=== PATIENT | female | born 1945 | race Caucasian/White ===

== ENCOUNTER 2019-07-03 11:11 | Outpatient (CLI) | payer MEDICARE, SELFPAY ==
--- NOTE | ~2019-07-03 | US_ITS ---
EXAMINATION: US right upper quadrant DATE: 07/03/2019 12:08 INDICATION: Right upper quadrant pain, history of cholecystectomy TECHNIQUE: Multiple grayscale and Doppler ultrasound images of the abdomen were obtained. COMPARISON: None available FINDINGS: The head and and body of the pancreas are normal. The pancreatic tail is obscured by bowel gas. The liver is normal with normal echogenicity and echotexture. No surface nodularity. Normal hepa topetal flow in the main portal vein. The gallbladder is surgically absent. The normal common bile du ct measures 5 mm. IMPRESSION: 1. No sonographic correlate for the patient's symptoms. Reviewed, dictated and finalized at location A. [facility]
== END 2019-07-03 11:12 | disposition home or self-care (01) ==
LOC: CHSIMG 11:13
PROVIDERS: PCP Internal Medicine; Visit Provider Internal Medicine
DX: R10.11 Right upper quadrant pain (principal)
CPT/HCPCS: 76705

== ENCOUNTER 2019-07-17 10:12 | Outpatient (CLI) | payer MEDICARE, SELFPAY ==
--- NOTE | ~2019-07-17 | XR_ITS ---
EXAMINATION: XR chest 2V DATE: 07/17/2019 10:42 INDICATION: Fever and shortness of breath. Flulike symptoms. TECHNIQUE: Frontal and lateral views of the chest were obtained. COMPARISON: Chest CT 09/05/2018 FINDINGS: There are mild patchy airspace opacities in the mid and lower lung zones. No pleural effusi on or pneumothorax. The heart size is normal. Surgical clips in the right upper quadrant are likely f rom cholecystectomy. IMPRESSION: 1. Mild patchy airspace opacities in the mid and lower lung zones, consistent with atelectasis/scarri ng versus pneumonia. Reviewed, dictated and finalized at location A. [facility] IMPRESSION: 1. Mild patchy airspace opacities in the mid and lower lung zones, consistent w ith atelectasis/scarring versus pneumonia.
[2019-07-17 10:29] LABS: Hemoglobin 13.1 g/dL (11.7-13.8); Mean Corpuscular HGB Conc 33.6 g/dL (32.0-36.0); Mean Corpuscular Volume 86.3 fL (78.0-102.0); Mean Platelet Volume 8.9 fl (9.2-11.8); Platelet Count Result 314 K/mm3 (150-420); Red Blood Count 4.52 M/mm3 (4.20-5.40); Red Cell Distribution Width 13.3 % (11.6-14.4)
[2019-07-17 10:35] LABS: Add Urine Microscopic? YES; Appearance Urine Sl Cloudy (Clear); Bilirubin Urine 3+ (Negative); Blood Urine 2+ (Negative); Color Urine Amber (Yellow); Glucose Urine UA Negative (Negative); Ketones Urine 2+ (Negative); Leukocyte Esterase Ur Negative (Negative); Nitrate Urine Positive (Negative); Protein Urine 3+ (Negative); Specific Grav Ur >= 1.030 (1.010-1.020); Urobilinogen Urine >=8.0 mg/dL (0.2-1.0)
[2019-07-17 10:47] LABS: Alanine Aminotransferase 27 U/L (14-59); Albumin Level 3.2 g/dL (3.4-5.0); Alkaline Phosphatase 123 U/L (46-116); Amylase 25 U/L (25-115); Aspartate Amino Transferase 33 U/L (15-37); Bilirubin,Total 1.3 mg/dL (0.00-1.00); Blood Urea Nitrogen 13 mg/dL (7-18); Carbon Dioxide 25 mmol/L (21-32); Chloride 96 mmol/L (98-108); Estimated Glomerular Filt Rate 52; Glucose 146 mg/dL (70-99); Lipase 84 U/L (73-393); Osmolality Calculated 283 mOsm/kg (285-295); Sodium 135 mmol/L (136-145); Total Protein 8.7 g/dL (6.4-8.2)
[2019-07-17 10:50] LABS: Influenza Control Valid (Valid)
[2019-07-17 11:02] LABS: White Blood Count 20.8 K/mm3 (4.8-10.8)
[2019-07-17 11:03] LABS: Band Neutrophils Percent 0 % (0-6); Lymphocytes Absolute Manual 1.24 K/mm3 (1.1-4.5); Lymphocytes Percent Manual 6 % (18-44); Neutrophils Absolute Manual 17.88 K/mm3 (1.7-7.2); Neutrophils Percent Manual 86 % (46-73); Total Cells Counted 100
[2019-07-17 11:04] LABS: Basophils Percent Manual 0 % (0-1); Eosinophils Percent Manual 0 % (1-6); Monocytes Absolute Manual 1.66 K/mm3 (0.1-0.90); Monocytes Percent Manual 8 % (3-9); Platelet Estimate Adequate (Adequate); Squamous Epithelial Cell Urine Few /hpf (Few); WBC Urine None seen /hpf (0-3)
[2019-07-17 11:05] LABS: Bacteria Urine 1+ /hpf; Mucus Urine Few /lpf
== END 2019-07-17 10:13 | disposition home or self-care (01) ==
LOC: CHSLAB 10:16
PROVIDERS: PCP Internal Medicine; Visit Provider Nurse Practitioner Family
DX: J06.9 Acute upper respiratory infection, unspecified (principal); R11.2 Nausea with vomiting, unspecified; R32 Unspecified urinary incontinence
CPT/HCPCS: 71046; 80053; 81001; 82150; 83690; 85025; 87086; 87088; 87804

== ENCOUNTER 2019-07-27 08:02 | Outpatient (CLI) | payer MEDICARE, SELFPAY ==
--- NOTE | ~2019-07-27 | XR_ITS ---
EXAMINATION: XR chest 2V EXAM DATE: 07/27/2019 08:52 INDICATION: Cough, congestion. TECHNIQUE: Frontal and lateral projections of the chest obtained and reviewed. There is no prior phani dy for comparison. FINDINGS: Scattered predominantly linear regions most consistent with atelectasis and/or scarring ag ain noted without confluent consolidation. Accounting for differences in technique, there is no signi ficant interval change. Cardiomediastinal silhouette is normal. There is no pneumothorax suspected. T here are no pleural effusions. There are bony degenerative changes. There are cholecystectomy clips. IMPRESSION: 1. Scattered predominantly linear opacities most likely scarring/atelectasis unchanged. Reviewed, dictated and finalized at location B. T PARKER IMPRESSION: 1. Scattered predominantly linear opacities most likely scarring/atelectasis u nchanged.
[2019-07-27 08:13] LABS: Basophils Absolute Auto 0.09 K/mm3 (0.00-0.10); Basophils Percent Auto 0.5 % (0.0-1.0); Eosinophils Absolute Auto 0.19 K/mm3 (0.02-0.50); Eosinophils Percent Auto 1.1 % (1.0-6.0); Hematocrit 40.5 % (35.0-42.0); Immature Granulocyte Absolute 0.33 K/mm3 (0.00-0.00); Immature Granulocyte Percent A 1.9 % (0.0-0.0); Lymphocytes Absolute Auto 3.69 K/mm3 (1.10-4.50); Lymphocytes Percent Auto 21.7 % (18.0-42.0); Mean Corpuscular HGB Conc 32.1 g/dL (32.0-36.0); Mean Corpuscular Hemoglobin 28.7 pg (27.0-31.0); Mean Corpuscular Volume 89.4 fL (78.0-102.0); Mean Platelet Volume 8.1 fl (9.2-11.8); Monocytes Absolute Auto 0.89 K/mm3 (0.10-0.90); Monocytes Percent Auto 5.2 % (2.0-11.0); Neutrophils Absolute Auto 11.8 K/mm3 (1.7-7.2); Neutrophils Percent Auto 69.6 % (50.0-70.0); Platelet Count Result 493 K/mm3 (150-420); Red Blood Count 4.53 M/mm3 (4.20-5.40); Red Cell Distribution Width 13.7 % (11.6-14.4)
[2019-07-27 09:16] LABS: Anion Gap 13.4 mmol/L (7-16); Blood Urea Nitrogen 16 mg/dL (7-18); Calcium 9.6 mg/dL (8.5-10.1); Carbon Dioxide 31 mmol/L (21-32); Chloride 101 mmol/L (98-108); Estimated Glomerular Filt Rate > 60; Glucose 91 mg/dL (70-99); Osmolality Calculated 291 mOsm/kg (285-295); Potassium 5.4 mmol/L (3.5-5.1); Sodium 140 mmol/L (136-145)
== END 2019-07-27 08:03 | disposition home or self-care (01) ==
LOC: CHSLAB 08:05
PROVIDERS: PCP Internal Medicine; Visit Provider Internal Medicine
DX: J18.9 Pneumonia, unspecified organism (principal)
CPT/HCPCS: 36415; 71046; 80048; 85025

== ENCOUNTER 2019-08-03 07:57 | Outpatient (CLI) | payer MEDICARE, SELFPAY ==
[2019-08-03 08:05] LABS: Basophils Absolute Auto 0.08 K/mm3 (0.00-0.10); Eosinophils Absolute Auto 0.14 K/mm3 (0.02-0.50); Eosinophils Percent Auto 1.8 % (1.0-6.0); Hematocrit 39.6 % (35.0-42.0); Hemoglobin 12.8 g/dL (11.7-13.8); Immature Granulocyte Absolute 0.02 K/mm3 (0.00-0.00); Immature Granulocyte Percent A 0.3 % (0.0-0.0); Lymphocytes Absolute Auto 2.72 K/mm3 (1.10-4.50); Mean Corpuscular HGB Conc 32.3 g/dL (32.0-36.0); Mean Corpuscular Hemoglobin 28.6 pg (27.0-31.0); Mean Corpuscular Volume 88.4 fL (78.0-102.0); Mean Platelet Volume 8.5 fl (9.2-11.8); Monocytes Absolute Auto 0.66 K/mm3 (0.10-0.90); Monocytes Percent Auto 8.3 % (2.0-11.0); Neutrophils Absolute Auto 4.4 K/mm3 (1.7-7.2); Neutrophils Percent Auto 54.6 % (50.0-70.0); Platelet Count Result 435 K/mm3 (150-420); Red Blood Count 4.48 M/mm3 (4.20-5.40); Red Cell Distribution Width 14.1 % (11.6-14.4)
== END 2019-08-03 07:58 | disposition home or self-care (01) ==
LOC: CHSLAB 07:59
PROVIDERS: PCP Internal Medicine; Visit Provider Internal Medicine
DX: J18.9 Pneumonia, unspecified organism (principal)
CPT/HCPCS: 36415; 85025

== ENCOUNTER 2019-08-11 10:30 | Outpatient (CLI) | payer MEDICARE, SELFPAY ==
--- NOTE | ~2019-08-11 | CT_ITS ---
EXAMINATION: CT abdomen pelvis w con DATE: 08/11/2019 11:15 INDICATION: Acute left lower quadrant abdominal pain. History of colon cancer. TECHNIQUE: Computed tomography (CT) of the abdomen and pelvis was performed with 100 cc Omnipaque 350 intravenous contrast. Automated exposure control and iterative reconstruction technique were employe d. Exam dose: 392.48 mGy-cm total exam DLP. COMPARISON: 07/03/2019 right upper quadrant abdominal ultrasound examination for right upper quadrant abdominal pain; no significant abnormality reported FINDINGS: There are scattered mild patchy areas of focal infiltrate and/or atelectasis in the lower l matthew zones bilaterally. Normal heart size. No pericardial or pleural effusion. There are multiple left and right hepatic cysts and/or cavernous hemangiomas, likely benign, the larg est situated in the lower lateral segment left hepatic lobe, measuring up to 1.9 cm dimension. No binh picious solid lesion of the liver is evident. Status post cholecystectomy. No bile duct or pancreatic duct dilatation. No pancreatic mass lesion, c alcification. Normal splenic size. Normal morphology of the adrenal glands. Approximately 2 small renal cysts are noted bilaterally, the largest 1.1 cm, at the upper pole of the right kidney. No urinary tract calculus or hydroureteronephrosis is evident. There is atherosclerotic calcification of the abdominal aorta; no abdominal aortic aneurysm. No signi ficantly enlarged intraperitoneal or retroperitoneal or pelvic lymph nodes are evident. Occasional bi lateral inguinal lymph nodes are noted, the largest on the left, measuring 9 x 13 mm. Small sliding hiatal hernia. No CT evidence of appendicitis. No bowel obstruction or intraperitoneal free air. There is a suture line in the rectosigmoid area, with some circumferential soft tissue prom inence in this area. Local tumor recurrence cannot be excluded or confirmed based on this examination ; further evaluation by colonoscopy or barium enema imaging should be considered. There is prominent degenerative change at the lower thoracic and upper to mid lumbar spine, including prominent degenerative disease particularly at L1-2 and L2-3 with associated mild retrolisthesis at each of these levels.. IMPRESSION: Rectosigmoid suture line related to history of prior colon cancer. There appears to be s ome circumferential soft tissue thickening at this area. Recommend further evaluation by colonoscopy or barium enema examination Small sliding hiatal hernia Multiple left and right hepatic cysts and/or cavernous hemangiomas, likely benign Bilateral renal cysts Reviewed, dictated and finalized at Location A. Reviewed, dictated and finalized at location A. IMPRESSION: Rectosigmoid suture line related to history of prior colon cancer. There appears to be some circumferential soft tissue thickening at this area. Recommend further evaluation by colonoscopy or barium enema examination Small sliding hiatal hernia Multiple left and right hepatic cysts and/or cavernous hemangiomas, likely vidya gn Bilateral renal cysts
[2019-08-11 10:40] LABS: Basophils Absolute Auto 0.05 K/mm3 (0.00-0.10); Basophils Percent Auto 0.7 % (0.0-1.0); Eosinophils Absolute Auto 0.14 K/mm3 (0.02-0.50); Eosinophils Percent Auto 1.8 % (1.0-6.0); Hematocrit 40.3 % (35.0-42.0); Hemoglobin 13.4 g/dL (11.7-13.8); Immature Granulocyte Absolute 0.04 K/mm3 (0.00-0.00); Immature Granulocyte Percent A 0.5 % (0.0-0.0); Lymphocytes Absolute Auto 2.35 K/mm3 (1.10-4.50); Lymphocytes Percent Auto 30.8 % (18.0-42.0); Mean Corpuscular HGB Conc 33.3 g/dL (32.0-36.0); Mean Corpuscular Hemoglobin 29.6 pg (27.0-31.0); Mean Platelet Volume 8.8 fl (9.2-11.8); Monocytes Absolute Auto 0.56 K/mm3 (0.10-0.90); Monocytes Percent Auto 7.3 % (2.0-11.0); Neutrophils Absolute Auto 4.5 K/mm3 (1.7-7.2); Neutrophils Percent Auto 58.9 % (50.0-70.0); Platelet Count Result 266 K/mm3 (150-420); Red Blood Count 4.53 M/mm3 (4.20-5.40); Red Cell Distribution Width 14.9 % (11.6-14.4); White Blood Count 7.6 K/mm3 (4.8-10.8)
[2019-08-11 10:44] LABS: Add Urine Microscopic? NO; Appearance Urine Clear (Clear); Bilirubin Urine Negative (Negative); Blood Urine Negative (Negative); Color Urine Yellow (Yellow); Glucose Urine UA Negative (Negative); Ketones Urine Negative (Negative); Leukocyte Esterase Ur Negative (Negative); Nitrate Urine Negative (Negative); Protein Urine Negative (Negative); Specific Grav Ur 1.025 (1.010-1.020); Urobilinogen Urine 0.2 mg/dL (0.2-1.0); pH Urine 5.5 (5.0-8.0)
[2019-08-11 10:50] LABS: Estimated Glomerular Filt Rate 59
[2019-08-11 10:54] LABS: Alanine Aminotransferase 20 U/L (14-59); Albumin Level 3.8 g/dL (3.4-5.0); Alkaline Phosphatase 75 U/L (46-116); Anion Gap 14.5 mmol/L (7-16); Aspartate Amino Transferase 17 U/L (15-37); Bilirubin,Total 0.6 mg/dL (0.00-1.00); Blood Urea Nitrogen 17 mg/dL (7-18); Calcium 9.7 mg/dL (8.5-10.1); Carbon Dioxide 27 mmol/L (21-32); Chloride 103 mmol/L (98-108); Glucose 95 mg/dL (70-99); Osmolality Calculated 291 mOsm/kg (285-295); Potassium 4.5 mmol/L (3.5-5.1); Sodium 140 mmol/L (136-145); Total Protein 7.4 g/dL (6.4-8.2)
== END 2019-08-11 10:31 | disposition home or self-care (01) ==
LOC: CHSLAB 10:33
PROVIDERS: PCP Internal Medicine; Visit Provider Internal Medicine
DX: R10.32 Left lower quadrant pain (principal); Z85.038 Personal history of other malignant neoplasm of large intestine
CPT/HCPCS: 36415; 74177; 80053; 81003; 85025; Q9965

== ENCOUNTER 2019-09-03 11:36 | Outpatient (CLI) | payer MEDICARE, SELFPAY ==
[2019-09-03 11:48] LABS: Add Urine Microscopic? YES; Appearance Urine Clear (Clear); Bilirubin Urine Negative (Negative); Blood Urine Negative (Negative); Color Urine Yellow (Yellow); Glucose Urine UA Negative (Negative); Ketones Urine Trace (Negative); Leukocyte Esterase Ur Negative (Negative); Nitrate Urine Negative (Negative); Protein Urine Negative (Negative); Specific Grav Ur >= 1.030 (1.010-1.020); Urobilinogen Urine 0.2 mg/dL (0.2-1.0); pH Urine 5.5 (5.0-8.0)
[2019-09-03 12:52] LABS: Bacteria Urine 2+ /hpf; Mucus Urine Few /lpf; RBC Urine 0-2 /hpf (0-2); Squamous Epithelial Cell Urine Few /hpf (Few); WBC Urine 0-3 /hpf (0-3)
[2019-09-03 13:12] LABS: Alanine Aminotransferase 25 U/L (14-59); Albumin Level 3.7 g/dL (3.4-5.0); Alkaline Phosphatase 81 U/L (46-116); Anion Gap 14.3 mmol/L (7-16); Aspartate Amino Transferase 20 U/L (15-37); Bilirubin,Total 0.3 mg/dL (0.00-1.00); Blood Urea Nitrogen 11 mg/dL (7-18); Calcium 8.5 mg/dL (8.5-10.1); Carbon Dioxide 27 mmol/L (21-32); Chloride 104 mmol/L (98-108); Cholesterol 237 mg/dL (0-200); Creatine Kinase 39 U/L (26-192); Estimated Glomerular Filt Rate > 60; Glucose 99 mg/dL (70-99); HDL Direct 45 mg/dL (40-60); LDL Cholesterol Calculated 145 mg/dL (<130); Osmolality Calculated 291 mOsm/kg (285-295); Potassium 4.3 mmol/L (3.5-5.1); Sodium 141 mmol/L (136-145); Triglycerides 233 mg/dL (0-150)
[2019-09-06 18:31] LABS: Vitamin D 25 Hydroxy 23 ng/mL (30-100)
== END 2019-09-03 11:37 | disposition home or self-care (01) ==
LOC: CHSLAB 11:39
PROVIDERS: PCP Internal Medicine; Visit Provider Internal Medicine
DX: E78.2 Mixed hyperlipidemia (principal); M81.0 Age-related osteoporosis without current pathological fracture; I10 Essential (primary) hypertension
CPT/HCPCS: 36415; 80053; 80061; 81001; 82306; 82550

== ENCOUNTER 2019-09-21 12:22 | Outpatient (CLI) | payer MEDICARE, SELFPAY ==
--- NOTE | ~2019-09-21 | CT_ITS ---
EXAMINATION: CT abdomen pelvis w con DATE: 09/21/2019 13:08 INDICATION: Left lower quadrant abdominal pain. Colon cancer. TECHNIQUE: Computed tomography (CT) of the abdomen and pelvis was performed with 100 mL Omnipaque-350 intravenous contrast. Automated exposure control and iterative reconstruction technique were employe d. The dose-length product was 424.82 mGy-cm. COMPARISON: 08/11/2019 FINDINGS: Full improvement in peripheral reticulonodular opacities in the lingula and right lower lobe essentia lly resolved in the left lower lobe which is most likely infectious/inflammatory in etiology. No new lung disease or pleural effusion. Heart size is normal. No pericardial effusion. Small sliding-type h iatal hernia. Cholecystectomy clips in the gallbladder fossa. No interval change in multiple low-attenuation likely scattered throughout the liver and in both kidneys. Spleen, pancreas and bilateral adrenal glands ar e normal. Postoperative change of prior partial colectomy with anastomotic suture line at the rectosi gmoid junction. Stool scattered throughout the colon and would correlate for constipation. Very short loop of small bowel extends into a small pelvic ventral hernia along a midline surgical scar. No bow el wall thickening or obstruction. The appendix is not visualized. No pericecal inflammatory change t o suggest acute appendicitis. Partial decompressed bladder is normal. The uterus is not identified an d has likely been surgically resected. No free intraperitoneal gas or fluid. No pathologically enlarg ed abdominal or pelvic lymphadenopathy. There is calcified atherosclerosis of the aorta and many of t he other arteries. Severe lumbar spondylosis. IMPRESSION: 1. No acute intra-abdominal/pelvic process. 2. Very short segment of nonobstructed small bowel extends into a small pelvic ventral hernia. 3. Small sliding-type hiatal hernia. 4. Improvement in peripheral reticulonodular opacities in the bilateral lower lungs which are likely infectious/inflammatory in etiology. Reviewed, dictated and finalized at location A. IMPRESSION: 1. No acute intra-abdominal/pelvic process. 2. Very short segment of nonobstructed small bowel extends into a small pelvic ventral hernia. 3. Small sliding-type hiatal hernia. 4. Improvement in peripheral reticulonodular opacities in the bilateral lower l ungs which are likely infectious/inflammatory in etiology.
== END 2019-09-21 12:23 | disposition home or self-care (01) ==
LOC: CHSLAB 12:24
PROVIDERS: PCP Internal Medicine; Visit Provider Internal Medicine
DX: R10.32 Left lower quadrant pain (principal); Z85.038 Personal history of other malignant neoplasm of large intestine
CPT/HCPCS: 74177; Q9965

== ENCOUNTER 2019-10-19 08:21 | Outpatient (CLI) | payer MEDICARE, SELFPAY | END 2019-10-19 08:22 | disposition home or self-care (01) | LOC: ANHCOVIDDT 08:21 | PROVIDERS: PCP Internal Medicine; Visit Provider Surgery | DX: Z01.818 Encounter for other preprocedural examination (principal); Z11.59 Encounter for screening for other viral diseases | CPT/HCPCS: 87635; U0003 ==

== ENCOUNTER 2019-10-22 02:03 | Day surgery (SDC) | payer MEDICARE, SELFPAY ==
[2019-10-16 13:57] VITALS: BMI 33.1
--- NOTE | 2019-10-22 12:18 | PM.HPGS ---
History of Present Illness History of Present Illness Consent: Risks, benefits, and alternatives of a colonoscopy with possible biopsy or polypectomy have been discussed and questions answered. Patient agrees to proceed with procedure. Chief complaint: Hx Colon Ca/ Abnormal CT Scan Narrative: Ana Sanchez is a 74 year old female who is a patient of Dr. Mcqueen in [place]. Patient has had periodic LLQ abdominal pain over the last several months. Because of covid 19 even though she has had previous colon cancer and had a rectosigmoid anastomosis, in the past she has not been felt to be healthy enough to have a colonoscopy. A CEA level was done and this was within normal range. Therefore, we were not has concerned that it was recurrent cancer. Now that the pandemic is waning we feel that is important to proceed and especially review the area of the previous anastomosis which on CT scan had some thickening near it. Her last colonoscopy was in 2018 injures refill and this showed only 1 polyp and no other abnormalities. This was mainly thickening of the bowel wall without surrounding inflammation. Review of Systems Constitutional: Constitutional: Reports no additional constitutional complaints, Reports fatigue and Denies malaise Eyes: Eyes: Denies change in vision and Denies loss of vision ENT: Reports Normal hearing present, Denies change in voice, Denies dizziness, Denies hoarseness and Denies sore throat Cardiovascular: Cardiovascular: Denies chest pain, Denies leg edema and Denies dyspnea Respiratory: Respiratory: Denies cough, Denies dyspnea and Denies wheezing Gastrointestinal: Gastrointestinal: Reports abdominal pain ( Some complaints of left lower quadrant abdominal pain), Denies hematochezia, Denies change in bowel habits and Denies heartburn Genitourinary: Genitourinary: Denies urinary frequency and Denies urinary incontinence Neurologic: Reports Normal hearing present, Denies confusion, Denies dizziness, Denies loss of vision, Denies memory loss and Denies seizure-like activity Psychiatric: Psychiatric: Denies confusion, Denies depression and Denies memory loss Endocrine: Endocrine: Denies cold intolerance and Reports fatigue Hematologic/Lymphatic: Hematologic/Lymphatic: Denies easy bleeding and Denies easy bruising Allergic/Immunologic: Allergic/Immunologic: Denies wheezing PMFSH Past Medical History Medical History (Updated 10/22/19 @ 12:57 by Anthony Turner MD) GERD (gastroesophageal reflux disease) History of colon cancer (1999) History of uterine cancer Hyperlipidemia Hypertension (Unknown) Obesity (BMI 30.0-34.9) (Unknown) Osteoarthritis (Unknown) Surgical History Surgical History (Updated 10/22/19 @ 10:58 by Woodrow Valencia DO) History of cholecystectomy History of hysterectomy Meds Home Medications and Allergies Home Medications Medication Instructions Recorded Confirmed Type atorvastatin 40 mg PO DAILY 10/16/19 10/16/19 History ergocalciferol (vitamin D2) 1,250 mcg PO WEEKLY 10/16/19 10/16/19 History lisinopril 20 mg PO DAILY 10/16/19 10/16/19 History meloxicam 15 mg PO DAILY 10/16/19 10/16/19 History pantoprazole 40 mg PO DAILY 10/16/19 10/16/19 History Allergies Allergy/AdvReac Type Severity Reaction Status Date / Time aspirin Allergy Severe Difficulty Verified 10/22/19 12:25 Breathing sulfamethoxazole Allergy Severe Hives Verified 10/22/19 12:25 [From Bactrim] trimethoprim [From Bactrim] Allergy Severe Hives Verified 10/22/19 12:25 Exam Const: General: cooperative, healthy appearing, no acute distress, well developed and alert; No confusion Nutritional Appearance: well nourished Orientation/consciousness: patient oriented x3 and No confusion Limitations: no limitations HENMT: Head: normal to inspection, normocephalic and atraumatic Ears: hearing grossly normal bilaterally General nose exam: Normal external nose present Face and sinus: no edema Mouth
[2019-10-22 12:27] VITALS: BP 180/62; PULSE 80; RESP 18; TEMP 37.4; O2SAT 99
--- NOTE | 2019-10-22 12:29 | WPDANESEPPF ---
Anes - Initial Pre Proc Eval Procedure: Operation Date: 10/22/19 13:30 Proposed Procedures p Colonoscopy - Anthony Turner MD Date/Time: 10/22/19 12:29 Surgeon: Anthony Turner MD Pre Op Diagnosis: Hx Colon Ca/ Abnormal CT Scan Patient Data Age: 74 Gender: F Height: 1.44 m Weight: 61.8 kg Last Vital Signs Temp 37.4 C 10/22/19 12:27 Pulse 80 10/22/19 12:27 Resp 18 10/22/19 12:27 BP 180/62 H 10/22/19 12:27 Pulse Ox 99 10/22/19 12:27 Allergies Allergy/AdvReac Type Severity Reaction Status Date / Time aspirin Allergy Severe Difficulty Verified 10/22/19 12:25 Breathing sulfamethoxazole Allergy Severe Hives Verified 10/22/19 12:25 [From Bactrim] trimethoprim [From Bactrim] Allergy Severe Hives Verified 10/22/19 12:25 Home Medications Medication Instructions Recorded Confirmed Type atorvastatin 40 mg PO DAILY 10/16/19 10/16/19 History ergocalciferol (vitamin D2) 1,250 mcg PO WEEKLY 10/16/19 10/16/19 History lisinopril 20 mg PO DAILY 10/16/19 10/16/19 History meloxicam 15 mg PO DAILY 10/16/19 10/16/19 History pantoprazole 40 mg PO DAILY 10/16/19 10/16/19 History Patient hx anesthesia problems: none Family hx anesthesia problems: none PMFSH Past Medical History Medical History (Updated 10/22/19 @ 10:58 by Woodrow Valencia DO) GERD (gastroesophageal reflux disease) History of colon cancer History of uterine cancer Hyperlipidemia Hypertension Osteoarthritis Surgical History Surgical History (Updated 10/22/19 @ 10:58 by Woodrow Valencia DO) History of cholecystectomy History of hysterectomy Anes - Eval Final PreProcedure Day of Procedure 10/22/19 12:29 Patient weight: obese Heart: regular rate and rhythm Lungs: clear to auscultation and normal air movement Airway: Mallampati scale class II Neurological: alert and oriented Last oral intake: >/= 8 hours ASA classification: III Emergent: no Anesthetic plan: proceed Anesthesia type and monitoring: general GIVS and standard monitoring Informed Consent: The patient's anesthetic plan and its attendant risks and benefits were discussed with the patient/family/POA. Questions were solicited and answers provided to the satisfaction of the patient/family/POA.
[2019-10-22] MEDS: LACTATED RINGERS 1,000 ML 150 ML IV CONT (12:30)
[2019-10-22] MEDS: SIMETHICONE ORAL SUSPENSION 20 MG/0.3 ML 30 ML BOTTLE 0.6 ML IRRIGATION (13:08)
[2019-10-22 13:37] VITALS: BP 99/46; PULSE 70; RESP 16; O2SAT 99
[2019-10-22 13:47] VITALS: BP 129/59; PULSE 67; RESP 18; O2SAT 99
[2019-10-22 13:57] VITALS: BP 142/58; PULSE 68; RESP 18; O2SAT 99
== END 2019-10-22 14:24 | disposition home or self-care (01) ==
PROVIDERS: PCP Internal Medicine; Visit Provider Surgery
PROC: 0DJD8ZZ Inspection of Lower Intestinal Tract, Via Natural or Artificial Opening Endoscopic (ICD-10-PCS; CPT 45378; principal; 2019-10-22 13:30)
DX: R10.32 Left lower quadrant pain (principal); K62.89 Other specified diseases of anus and rectum; Z98.0 Intestinal bypass and anastomosis status; Z85.038 Personal history of other malignant neoplasm of large intestine; Z90.49 Acquired absence of other specified parts of digestive tract; I10 Essential (primary) hypertension; E78.5 Hyperlipidemia, unspecified; M19.90 Unspecified osteoarthritis, unspecified site; K21.9 Gastro-esophageal reflux disease without esophagitis; Z85.42 Personal history of malignant neoplasm of other parts of uterus; E66.9 Obesity, unspecified; Z68.30 Body mass index [BMI] 30.0-30.9, adult
CPT/HCPCS: 45378; 87635; C9803; J2704; J7120; U0003

== ENCOUNTER 2020-03-16 12:08 | Outpatient (CLI) | payer MEDICARE, SELFPAY ==
[2020-03-16 12:23] LABS: Add Urine Microscopic? NO; Appearance Urine Clear (Clear); Bilirubin Urine Negative (Negative); Blood Urine Negative (Negative); Color Urine Yellow (Yellow); Glucose Urine UA Negative (Negative); Ketones Urine Negative (Negative); Leukocyte Esterase Ur Negative (Negative); Nitrate Urine Negative (Negative); Protein Urine Negative (Negative); Specific Grav Ur >= 1.030 (1.010-1.020); Urobilinogen Urine 0.2 mg/dL (0.2-1.0); pH Urine 5.5 (5.0-8.0)
[2020-03-16 13:05] LABS: Alanine Aminotransferase 17 U/L (14-59); Albumin Level 4.1 g/dL (3.4-5.0); Alkaline Phosphatase 88 U/L (46-116); Anion Gap 9 mmol/L (8-16); Aspartate Amino Transferase 12 U/L (15-37); Bilirubin,Total 0.6 mg/dL (0.00-1.00); Blood Urea Nitrogen 14 mg/dL (7-18); Calcium 9.2 mg/dL (8.5-10.1); Carbon Dioxide 28 mmol/L (21-32); Chloride 104 mmol/L (98-108); Cholesterol 216 mg/dL (0-200); Creatine Kinase 51 U/L (26-192); Estimated Glomerular Filt Rate > 60; Glucose 92 mg/dL (70-99); HDL Direct 49 mg/dL (40-60); LDL Cholesterol Calculated 139 mg/dL (<130); Osmolality Calculated 292 mOsm/kg (285-295); Potassium 4.2 mmol/L (3.5-5.1); Sodium 141 mmol/L (136-145); Triglycerides 140 mg/dL (0-150)
[2020-03-19 12:21] LABS: Vitamin D 25 Hydroxy 55 ng/mL (30-100)
== END 2020-03-16 12:09 | disposition home or self-care (01) ==
LOC: CHSLAB 12:10
PROVIDERS: PCP Internal Medicine; Visit Provider Internal Medicine
DX: E78.2 Mixed hyperlipidemia (principal); I10 Essential (primary) hypertension; E56.9 Vitamin deficiency, unspecified; R31.21 Asymptomatic microscopic hematuria; M81.0 Age-related osteoporosis without current pathological fracture
CPT/HCPCS: 36415; 80053; 80061; 81003; 82306; 82550

== ENCOUNTER 2020-04-08 09:51 | Outpatient (CLI) | payer MEDICARE, SELFPAY ==
--- NOTE | ~2020-04-08 | CT_ITS ---
EXAMINATION: CT abdomen pelvis w con EXAM DATE: 04/08/2020 11:10 INDICATION: Acute LLQ abdominal pain for 3 days.; colon cancer; diverticulitis. TECHNIQUE: Spiral CT of the abdomen and pelvis was performed following intravenous injection of 100 m L Omnipaque 350. Axial, coronal and sagittal images were reviewed. The dose-length product (DLP) fo r this examination was 441.26 mGy-cm. The exposure was tailored according to patient size (auto mA e xposure control), and iterative reconstruction (ASIR) was used as additional dose reduction technique . Comparison is made to prior examination from 09/21/2019. FINDINGS: Scattered small liver cysts up to about 2 cm. The liver, spleen, adrenal glands and pancre as are unremarkable. Gallbladder is unremarkable. No biliary obstruction. Portal and splenic veins are patent. Kidneys enhance symmetrically. There is no hydronephrosis. The uterus is not identif ied and has likely been surgically resected. The bladder is collapsed at time of imaging limiting ev aluation. There is no retroperitoneal or pelvic lymphadenopathy. There is mild to moderate scatter ed arteriosclerotic disease. Small mid pelvic hernia containing nonobstructed small bowel. The appendix is not positively visualized. There is no pericecal inflammatory change to suggest appe ndicitis. There is small sliding gastroesophageal hiatal hernia. Partial colectomy with rectosigmoi d anastomosis, intact. No abscess. There is expected amount of colonic stool. No free intraperiton eal gas. The heart is normal in size. There are no pericardial or pleural effusions. Small amount of right lower lobe post infectious residua. There are no osteoblastic or osteolytic lesions identi fied. IMPRESSION: 1. No acute intra-abdominal findings. Reviewed, dictated and finalized at location B. RACKER
[2020-04-08 10:08] LABS: Basophils Absolute Auto 0.07 K/mm3 (0.00-0.10); Basophils Percent Auto 0.9 % (0.0-1.0); Eosinophils Percent Auto 1.3 % (1.0-6.0); Hematocrit 43.8 % (35.0-42.0); Hemoglobin 13.9 g/dL (11.7-13.8); Immature Granulocyte Absolute 0.02 K/mm3 (0.00-0.00); Immature Granulocyte Percent A 0.3 % (0.0-0.0); Lymphocytes Absolute Auto 2.65 K/mm3 (1.10-4.50); Lymphocytes Percent Auto 35.3 % (18.0-42.0); Mean Corpuscular HGB Conc 31.7 g/dL (32.0-36.0); Mean Corpuscular Hemoglobin 28.5 pg (27.0-31.0); Mean Corpuscular Volume 89.8 fL (78.0-102.0); Monocytes Absolute Auto 0.55 K/mm3 (0.10-0.90); Monocytes Percent Auto 7.3 % (2.0-11.0); Neutrophils Absolute Auto 4.1 K/mm3 (1.7-7.2); Neutrophils Percent Auto 54.9 % (50.0-70.0); Platelet Count Result 324 K/mm3 (150-420); Red Blood Count 4.88 M/mm3 (4.20-5.40); Red Cell Distribution Width 13.6 % (11.6-14.4); White Blood Count 7.5 K/mm3 (4.8-10.8)
[2020-04-08 10:09] LABS: Add Urine Microscopic? NO; Appearance Urine Clear (Clear); Bilirubin Urine Negative (Negative); Blood Urine Negative (Negative); Color Urine Yellow (Yellow); Glucose Urine UA Negative (Negative); Ketones Urine Negative (Negative); Leukocyte Esterase Ur Negative (Negative); Nitrate Urine Negative (Negative); Protein Urine Negative (Negative); Specific Grav Ur >= 1.030 (1.010-1.020); Urobilinogen Urine 0.2 mg/dL (0.2-1.0)
[2020-04-08 10:27] LABS: Alanine Aminotransferase 19 U/L (14-59); Alkaline Phosphatase 87 U/L (46-116); Anion Gap 8 mmol/L (8-16); Aspartate Amino Transferase 13 U/L (15-37); Bilirubin,Total 0.5 mg/dL (0.00-1.00); Blood Urea Nitrogen 21 mg/dL (7-18); Calcium 9.3 mg/dL (8.5-10.1); Carbon Dioxide 28 mmol/L (21-32); Chloride 103 mmol/L (98-108); Estimated Glomerular Filt Rate 59; Glucose 96 mg/dL (70-99); Osmolality Calculated 291 mOsm/kg (285-295); Potassium 4.2 mmol/L (3.5-5.1); Sodium 139 mmol/L (136-145); Total Protein 7.7 g/dL (6.4-8.2)
== END 2020-04-08 09:52 | disposition home or self-care (01) ==
LOC: CHSLAB 09:54
PROVIDERS: PCP Internal Medicine; Visit Provider Internal Medicine
DX: R10.32 Left lower quadrant pain (principal); Z85.038 Personal history of other malignant neoplasm of large intestine
CPT/HCPCS: 36415; 74177; 80053; 81003; 85025; 87086; 87088; Q9965

== ENCOUNTER 2020-06-01 09:51 | Outpatient (CLI) | payer MEDICARE, SELFPAY ==
[2020-06-01] MEDS: ZOLEDRONIC ACID 5 MG/100 ML 100 ML 400 MG IVPB (10:10)
--- NOTE | 2020-06-01 10:15 | PC.NURSE ---
Patient arrived at 0950, 20 gauge left AC initiated by charge nurse SUKHWINDER.
--- NOTE | 2020-06-01 10:30 | PC.NURSE ---
LAC IV removed, intact. Tolerated well by patient. Patient ambulated off of floorl. Gait steady
== END 2020-06-01 09:52 | disposition home or self-care (01) ==
PROVIDERS: PCP Internal Medicine; Visit Provider Internal Medicine
DX: M81.0 Age-related osteoporosis without current pathological fracture (principal)
CPT/HCPCS: 96365; 96374; J3489

== ENCOUNTER 2020-09-22 08:38 | Outpatient (CLI) | payer MEDICARE, SELFPAY ==
[2020-09-22 08:52] LABS: Basophils Absolute Auto 0.06 K/mm3 (0.00-0.10); Basophils Percent Auto 0.6 % (0.0-1.0); Eosinophils Absolute Auto 0.08 K/mm3 (0.02-0.50); Eosinophils Percent Auto 0.8 % (1.0-6.0); Hematocrit 42.1 % (35.0-42.0); Immature Granulocyte Absolute 0.04 K/mm3 (0.00-0.00); Immature Granulocyte Percent A 0.4 % (0.0-0.0); Lymphocytes Absolute Auto 3.04 K/mm3 (1.10-4.50); Lymphocytes Percent Auto 30.4 % (18.0-42.0); Mean Corpuscular HGB Conc 33.3 g/dL (32.0-36.0); Mean Corpuscular Hemoglobin 29.4 pg (27.0-31.0); Mean Corpuscular Volume 88.3 fL (78.0-102.0); Mean Platelet Volume 9.2 fl (9.2-11.8); Monocytes Absolute Auto 0.71 K/mm3 (0.10-0.90); Monocytes Percent Auto 7.1 % (2.0-11.0); Neutrophils Absolute Auto 6.1 K/mm3 (1.7-7.2); Neutrophils Percent Auto 60.7 % (50.0-70.0); Platelet Count Result 335 K/mm3 (150-420); Red Blood Count 4.77 M/mm3 (4.20-5.40)
[2020-09-22 09:10] LABS: Appearance Urine Clear (Clear); Bilirubin Urine Negative (Negative); Color Urine Yellow (Yellow); Glucose Urine UA Negative (Negative); Ketones Urine Negative (Negative); Leukocyte Esterase Ur Negative (Negative); Nitrate Urine Negative (Negative); Protein Urine Negative (Negative); Specific Grav Ur >= 1.030 (1.010-1.020); Urobilinogen Urine 0.2 mg/dL (0.2-1.0); pH Urine 5.5 (5.0-8.0)
[2020-09-22 09:17] LABS: Add Urine Microscopic? YES; Blood Urine Trace-Intact (Negative); RBC Urine 0-2 /hpf (0-2); WBC Urine None seen /hpf (0-3)
[2020-09-22 09:18] LABS: Bacteria Urine Trace /hpf; Squamous Epithelial Cell Urine Few /hpf (Few)
[2020-09-22 09:29] LABS: Alanine Aminotransferase 19 U/L (14-59); Albumin Level 4.2 g/dL (3.4-5.0); Alkaline Phosphatase 93 U/L (46-116); Anion Gap 8 mmol/L (8-16); Aspartate Amino Transferase 14 U/L (15-37); Bilirubin,Total 0.6 mg/dL (0.00-1.00); Blood Urea Nitrogen 21 mg/dL (7-18); Calcium 9.5 mg/dL (8.5-10.1); Carbon Dioxide 28 mmol/L (21-32); Chloride 101 mmol/L (98-108); Cholesterol 200 mg/dL (0-200); Creatine Kinase 52 U/L (26-192); Estimated Glomerular Filt Rate > 60; Glucose 113 mg/dL (70-99); HDL Direct 47 mg/dL (40-60); LDL Cholesterol Calculated 134 mg/dL (<130); Osmolality Calculated 288 mOsm/kg (285-295); Potassium 4.7 mmol/L (3.5-5.1); Sodium 137 mmol/L (136-145); Total Protein 7.4 g/dL (6.4-8.2); Triglycerides 96 mg/dL (0-150)
[2020-09-26 03:42] LABS: Vitamin D 25 Hydroxy 56 ng/mL (30-100)
== END 2020-09-22 08:39 | disposition home or self-care (01) ==
LOC: CHSLAB 08:40
PROVIDERS: PCP Internal Medicine; Visit Provider Internal Medicine
DX: M81.0 Age-related osteoporosis without current pathological fracture (principal); R31.21 Asymptomatic microscopic hematuria; E78.2 Mixed hyperlipidemia; I10 Essential (primary) hypertension
CPT/HCPCS: 36415; 80053; 80061; 81001; 82306; 82550; 85025

== ENCOUNTER 2020-09-23 07:43 | Outpatient (CLI) | payer MEDICARE, SELFPAY ==
--- NOTE | ~2020-09-23 | US_ITS ---
EXAMINATION: US carotid duplex BI DATE: 09/23/2020 08:52 INDICATION: Carotid stenosis. TECHNIQUE: Grayscale, color Doppler, and pulsed Doppler images of the cervical carotid arteries were obtained. The degree of vessel stenosis is placed in one of the following categories: normal, <50%, 5 0-69%, >=70% but less than near-occlusion, near-occlusion, or total occlusion. Note that percent sten osis relative to normal distal artery lumen diameter is indirectly measured from velocity measurement s as described by Teddy, et al. Radiology 2003; 229:340-346. COMPARISON: None. FINDINGS: RIGHT: The right common carotid artery (CCA) peak systolic velocity (PSV) is 70 cm/s. The right internal car otid artery (ICA) PSV is 85 cm/s. The right ICA end-diastolic velocity (EDV) is 22 cm/s. The right IC A/CCA PSV ratio is 1.2. Grayscale and color Doppler images yield an estimate of <50% diameter reducti on from plaque in the ICA. There is antegrade flow in the right vertebral artery. LEFT: The left CCA PSV is 94 cm/s. The left ICA PSV is 103 cm/s. The left ICA EDV is 26 cm/s. The left ICA/ CCA PSV ratio is 1.1. Grayscale and color Doppler images yield an estimate of <50% diameter reduction from plaque in the ICA. There is antegrade flow in the left vertebral artery. IMPRESSION: 1. <50% stenosis in the right internal carotid artery. 2. <50% stenosis in the left internal carotid artery. Reviewed, dictated and finalized at location D.
--- NOTE | ~2020-09-23 | MM_ITS ---
EXAMINATION: MM screening m[place] BI w shin HISTORY: Screening mammogram TECHNIQUE: Craniocaudal and mediolateral oblique 3-D tomosynthesis images were obtained and synthetic 2-D images were generated. CAD analysis was submitted and interpreted. COMPARISON: 03/31/2018 BREAST PARENCHYMAL COMPOSITION: The breasts are almost entirely fatty. FINDINGS: There is no evidence of suspicious mass, calcification, or architectural distortion to sugg est malignancy in either breast. There has been no suspicious interval change. IMPRESSION: 1. No mammographic evidence of malignancy. 2. Recommend routine screening mammography in one year. BI-RADS Category 1: Negative Reviewed, dictated and finalized at location A.
--- NOTE | ~2020-09-23 | DEXA_ITS ---
Bone Density Report Name: Ana Sanchez Age: 75 Sex: Female Ethnicity: White Date of : 1945 Indication: osteopenia; parental hip fracture; cancer; hysterectomy; rheumatoid arthritis; secondary osteoporosis; Referring Provider: Dane Mcqueen Study: Bone densitometry was performed. Exam Date: September 23, 2020 Accession number: [id number] Bone Density: Region BMD T-score Z-score Classification AP Spine(L1-L4) 0.919 -1.2 1.2 Osteopenia Femoral Neck (Left) 0.525 -2.9 -0.9 Osteoporosis Total Hip (Left) 0.710 -1.9 -0.2 Osteopenia Femoral Neck (Right) 0.556 -2.6 -0.6 Osteoporosis Total Hip (Right) 0.750 -1.6 0.2 Osteopenia Femoral Neck Mean 0.541 -2.8 -0.7 Osteoporosis Total Hip Mean 0.730 -1.7 0.0 Osteopenia World Health Organization criteria for BMD impression classify patients as: Normal (T-score at or above -1.0), Osteopenia (T-score between -1.0 and -2.5), or Osteoporosis (T-score at or below -2.5). Previous Exams: Region Exam Age BMD T-score BMD Change BMD Change Date g/cm2 vs Baseline vs Previous AP Spine (L1-L4) 09/23/2020 75 0.919 -1.2 -0.050 (-5.2%) -0.050 (-5.2%) 09/09/2018 73 0.969 -0.7 Total Hip(Left) 09/23/2020 75 0.710 -1.9 -0.059 (-7.7%) -0.059 (-7.7%) 09/09/2018 73 0.769 -1.4 Total Hip(Right) 09/23/2020 75 0.750 -1.6 -0.030 (-3.8%) -0.030 (-3.8%) 09/09/2018 73 0.780 -1.3 *Denotes significance at 95% confidence level, LSC for AP Spine = 0.022 g/cm2, LSC for Total Hip = 0.027 g/cm2 # Denotes dissimilar scan types or analysis methods Clinical Information Provided by Patient: Parent has had a hip fracture Has rheumatoid arthritis Has secondary osteoporosis Has used the following medications: Reclast (i.e. zoledronate), Vitamin D Has the following medical conditions: Cancer, Hysterectomy Patient maximum height was 60 No regular weight bearing exercise Drinks caffeinated beverages Onset of menses at age 13 Number of children 5 Impression: The patient has osteoporosis, based on the Left Femoral Neck T-score. The patient has risk factors, including: parental hip fracture. No significant bone loss was observed. Discussion: INCREASED RISK OF FRACTURE. BONE DENSITY IS UNDESIRABLY LOW AT ONE OR MORE SKELETAL SITES, CONSISTENT WITH POSTMENOPAUSAL OSTEOPOROSIS. This patient's lowest T-score meets the World Health Organization's (WHO) criteria for osteoporosis at one or more sites (T-score -2.5 or below). In untreated patients, the risk of osteoporotic fracture increases approximately two-fold for each 1.0 SD decrease in T
== END 2020-09-23 07:44 | disposition home or self-care (01) ==
LOC: CHSIMG 07:46
PROVIDERS: PCP Internal Medicine; Visit Provider Internal Medicine
DX: M81.0 Age-related osteoporosis without current pathological fracture (principal); I65.29 Occlusion and stenosis of unspecified carotid artery; Z12.31 Encounter for screening mammogram for malignant neoplasm of breast
CPT/HCPCS: 77063; 77067; 77080; 93880

== ENCOUNTER 2020-12-15 11:55 | Outpatient (CLI) | payer MEDICARE, SELFPAY ==
--- NOTE | 2020-12-15 12:43 | ECG_ITS ---
Measurements Intervals [place] Rate: 66 P: 29 CO: 132 QRS: -14 QRSD: 93 T: 21 QT: 404 QTc: 425 Interpretive Statements SINUS RHYTHM BORDERLINE R WAVE PROGRESSION, ANTERIOR LEADS BASELINE ARTIFACT- I, II, III, AVR, AVL, AVF, V1, V4-V6 BORDERLINE ECG Electronically Signed On 12-15-2020 13:02:16 CDT by Ramakrishna Palmer D.O.
[2020-12-15 13:40] LABS: Basophils Absolute Auto 0.1 K/mm3 (0.0-0.1); Basophils Percent Auto 0.7 % (0.2-1.2); Eosinophils Absolute Auto 0.1 K/mm3 (0-0.3); Eosinophils Percent Auto 1.1 % (0-4.4); Hematocrit 42.6 % (37.0-47.0); Hemoglobin 13.6 g/dL (12.0-15.0); Immature Granulocyte Absolute 0.02 K/mm3 (0.00-0.031); Immature Granulocyte Percent A 0.3 % (0-0.5); Lymphocytes Absolute Auto 2.09 K/mm3 (0.9-3.2); Lymphocytes Percent Auto 27.5 % (18.3-44.2); Mean Corpuscular HGB Conc 31.9 g/dl (32-36); Mean Corpuscular Hemoglobin 28.7 pg (26-34); Mean Corpuscular Volume 89.9 fl (80-100); Mean Platelet Volume 9.8 fl (7.4-10.4); Monocytes Absolute Auto 0.5 K/mm3 (0.1-0.6); Monocytes Percent Auto 6.3 % (2.6-8.5); Neutrophils Absolute Auto 4.9 K/mm3 (1.3-6.7); Neutrophils Percent Auto 64.1 % (45.5-73.1); Platelet Count Result 294 k/mm3 (150-375); Red Blood Count 4.74 M/mm3 (4.2-5.4); Red Cell Distribution Width 13.8 % (11.5-14.5); White Blood Count 7.6 K/mm3 (4.5-10.0)
[2020-12-15 13:48] LABS: Urine Cotinine NEGATIVE
[2020-12-15 13:56] LABS: Albumin Level 4.5 g/dL (3.5-5.1); Anion Gap 10 mmol/L (8-16); Blood Urea Nitrogen 18 mg/dL (7-17); Carbon Dioxide 26 mmol/L (22-30); Chloride 103 mmol/L (98-107); Estimated Glomerular Filt Rate > 60; Glucose 96 mg/dL (65-105); Potassium 3.6 mmol/L (3.4-5.0); Sodium 139 mmol/L (137-145)
[2020-12-15 14:28] LABS: Hemoglobin A1C 5.5 % (<5.7)
== END 2020-12-15 11:56 | disposition home or self-care (01) ==
LOC: ANHSURGERY 11:57
PROVIDERS: PCP Internal Medicine; Visit Provider Orthopaedic Surgery
DX: Z01.810 Encounter for preprocedural cardiovascular examination (principal); Z01.812 Encounter for preprocedural laboratory examination; M19.90 Unspecified osteoarthritis, unspecified site; I10 Essential (primary) hypertension; R94.31 Abnormal electrocardiogram [ECG] [EKG]; E66.9 Obesity, unspecified; E78.5 Hyperlipidemia, unspecified; Z87.891 Personal history of nicotine dependence; Z79.82 Long term (current) use of aspirin; Z85.038 Personal history of other malignant neoplasm of large intestine
CPT/HCPCS: 80048; 80307; 82040; 83036; 85025; 86850; 86900; 86901; 87070; 87077; 87186; 93005

== ENCOUNTER 2020-12-26 00:34 | Day surgery (SDC) | payer MEDICARE, SELFPAY ==
[2020-12-15 12:07] VITALS: BP 184/78; PULSE 76; RESP 20; TEMP 37.1; O2SAT 98; BMI 33.6
--- NOTE | 2020-12-23 12:24 | PM.IMHP ---
H&P: HPI History of Present Illness Date/Time: 12/23/20 [id number] female patient who presents today for a left total knee arthroplasty with cortisone injection right knee. She has been in both for. She got in past has in the she is getting much she has Taking meloxicam 15 daily again without improvement of her symptoms. She severe arthritis in the medial compartment with a varus deformity and moderate medial subluxation. Patient feels this point symptoms are affecting her on a daily basis feels she is ready to proceed with total knee arthroplasty at this point. <DOYLE Xie - Last Filed: 12/23/20 12:35> Chief Complaint: left and right knee DJD <DOYLE Xie - Last Filed: 12/23/20 12:35> Review of Systems Review of Systems: All systems reviewed & are unremarkable except as noted in HPI and below <DOYLE Xie - Last Filed: 12/23/20 12:35> PMFSH Past Medical History Medical History: Medical History GERD (gastroesophageal reflux disease) History of colon cancer (1999) History of uterine cancer Hyperlipidemia Hypertension (Unknown) Obesity (BMI 30.0-34.9) (Unknown) Osteoarthritis (Unknown) <DOYLE Xie - Last Filed: 12/23/20 12:35> Surgical History Surgical History: Surgical History History of cholecystectomy History of hysterectomy <DOYLE Xie - Last Filed: 12/23/20 12:35> Social History Social History: Social History Smoking packs per day: 1 Smoking cigarettes per day: 20.0 Years smoked: 35 Smoking pack-years: 35.00 Smoking status: Former smoker Tobacco type: cigarettes Second hand tobacco smoke exposure: No Additional smoking assessment comments: QUIT 2013 Alcohol intake: never Substance use: never Substance use type: does not use Living arrangements: with family Spiritual care concerns: No <DOYLE Xie - Last Filed: 12/23/20 12:35> Meds Home Medications and Allergies Home medications: Home Medications Medication Instructions Recorded Confirmed Type atorvastatin 40 mg PO QAM 10/16/19 12/26/20 History ergocalciferol (vitamin D2) 1,250 mcg PO WEEKLY 10/16/19 12/26/20 History lisinopril 20 mg PO QAM 10/16/19 12/26/20 History meloxicam 15 mg PO QAM 10/16/19 12/26/20 History pantoprazole [Protonix] 40 mg PO DAILY 10/16/19 12/26/20 History amlodipine 5 mg PO DAILY 12/26/20 12/26/20 History spironolactone 25 mg PO DAILY 12/26/20 12/26/20 History <DOYLE Xie - Last Filed: 12/23/20 12:35> Allergies/Adverse reactions: Allergies Allergy/AdvReac Type Severity Reaction Status Date / Time aspirin Allergy Severe Difficulty Verified 12/26/20 06:24 Breathing sulfamethoxazole Allergy Severe Hives Verified 12/26/20 06:24 [From Bactrim] trimethoprim [From Bactrim] Allergy Severe Hives Verified 12/26/20 06:24 <DOYLE Xie - Last Filed: 12/23/20 12:35> Exam Narrative: Exam Narrative: 75-year-old female alert pleasant. She is 4 ft 6 143 lb. Left knee range of motion is from 10-125 degrees. There is no effusion. Normal stability both AP mediolateral knee. Moderate to severe tenderness over anterior medial joint. Moderate pain with patellofemoral grind. Hip range of motion is full without discomfort. Stinchfield maneuver. Quad strength. Sensation to the left lower extremity. 2+ dorsalis pedis and posterior tibial artery pulse on left leg. <DOYLE Xie - Last Filed: 12/23/20 12:35> Resp: Auscultation: clear to auscultation bilaterally <DOYLE Xie - Last Filed: 12/23/20 12:35> Cardio: Rate: regular rate <DOYLE Xie - Last Filed: 12/23/20 12:35> Rhythm: regular rhythm <DOYLE Xie - Last Filed: 12/23/20 12:35> Assessment and Plan Additional Plan 75-year-old fema
--- NOTE | 2020-12-23 14:52 | WPDANESEPPF ---
Anes - Initial Pre Proc Eval Procedure: Operation Date: 12/26/20 07:30 Proposed Procedures p Left Total Knee Arthroplasty, Cortisone Injection Right Knee - Cuauhtemoc Rasmey MD Date/Time: 12/23/20 14:52 Surgeon: Cuauhtemoc Ramsey MD Pre Op Diagnosis: OA left knee, OA right knee Patient Data Age: 75 Gender: F Height: 1.4 m Weight: 65.7 kg Last Vital Signs Temp 98.7 F 12/15/20 12:07 Pulse 76 12/15/20 12:07 Resp 20 12/15/20 12:07 BP 184/78 H 12/15/20 12:07 Pulse Ox 98 12/15/20 12:07 Allergies Allergy/AdvReac Type Severity Reaction Status Date / Time aspirin Allergy Severe Difficulty Verified 12/26/20 06:24 Breathing sulfamethoxazole Allergy Severe Hives Verified 12/26/20 06:24 [From Bactrim] trimethoprim [From Bactrim] Allergy Severe Hives Verified 12/26/20 06:24 Home Medications Medication Instructions Recorded Confirmed Type atorvastatin 40 mg PO QAM 10/16/19 12/26/20 History ergocalciferol (vitamin D2) 1,250 mcg PO WEEKLY 10/16/19 12/26/20 History lisinopril 20 mg PO QAM 10/16/19 12/26/20 History meloxicam 15 mg PO QAM 10/16/19 12/26/20 History pantoprazole [Protonix] 40 mg PO DAILY 10/16/19 12/26/20 History amlodipine 5 mg PO DAILY 12/26/20 12/26/20 History spironolactone 25 mg PO DAILY 12/26/20 12/26/20 History Patient hx anesthesia problems: none Family hx anesthesia problems: none PMFSH Past Medical History Medical History GERD (gastroesophageal reflux disease) History of colon cancer (1999) History of uterine cancer Hyperlipidemia Hypertension (Unknown) Obesity (BMI 30.0-34.9) (Unknown) Osteoarthritis (Unknown) Surgical History Surgical History History of cholecystectomy History of hysterectomy Social History Social History Smoking packs per day: 1 Smoking cigarettes per day: 20.0 Years smoked: 35 Smoking pack-years: 35.00 Smoking status: Former smoker Tobacco type: cigarettes Second hand tobacco smoke exposure: No Additional smoking assessment comments: QUIT 2013 Alcohol intake: never Substance use: never Substance use type: does not use Living arrangements: with family Spiritual care concerns: No Anes - Eval Final PreProcedure Day of Procedure 12/23/20 14:52 Patient weight: obese Heart: regular rate and rhythm Lungs: clear to auscultation Airway: Mallampati scale class II Neurological: alert and oriented Last oral intake: >/= 8 hours ASA classification: III Emergent: no Anesthetic plan: proceed Anesthesia type and monitoring: general LMA and standard monitoring Informed Consent: The patient's anesthetic plan and its attendant risks and benefits were discussed with the patient/family/POA. Questions were solicited and answers provided to the satisfaction of the patient/family/POA.
[2020-12-26] VITALS (18 sets, daily range): BP systolic 107–149; BP diastolic 54–78; PULSE 81–100; RESP 11–24; TEMP 36.1–37.6; O2SAT 92–100
--- NOTE | ~2020-12-26 | XR_ITS ---
EXAMINATION: XR knee LT 2V DATE: 12/26/2020 13:12 CDT INDICATION: Left total knee arthroplasty TECHNIQUE: 2 views left knee FINDINGS: There is a left total knee arthroplasty in expected position. Subcutaneous gas with fluid and air in the joint are consistent with recent surgery. No evidence of periprosthetic fracture. IMPRESSION: 1. Recent left total knee arthroplasty. Reviewed, dictated and finalized at location A.
[2020-12-26] MEDS: ACETAMINOPHEN 500 MG TABLET 1000 MG PO ×3 (06:32→22:20)
[2020-12-26] MEDS: LACTATED RINGERS 1,000 ML 30 ML IV CONT ×3 (06:46→13:43)
[2020-12-26] MEDS: TRANEXAMIC ACID 1,000MG/ISO100 1,000 MG/100 ML BAG 200 MG IVPB (07:06)
--- NOTE | 2020-12-26 07:13 | WPDHPUPDATE1 ---
History and Physical Update Update Date/Time: 12/26/20 07:13 History and Physical has been reviewed, including an updated exam of the patient. There are NO changes in the patient's condition. Risks, benefits, and alternatives have been discussed and questions answered. Patient agrees to proceed with procedure.
[2020-12-26] MEDS: ceFAZolin 2 GM/D5W 50 ML 2 GM/50 ML BAG IVPB (07:52)
[2020-12-26] MEDS: ceFAZolin SODIUM 1 GM VIAL 3 GM IRRIGATION (08:39)
[2020-12-26] MEDS: ceFAZolin SODIUM 1 GM VIAL IV PUSH (11:18)
[2020-12-26] MEDS: TRANEXAMIC ACID 1,000 MG/10 ML AMPUL 1000 MG IV PUSH (11:22)
[2020-12-26] MEDS: methylPREDNISolone ACETATE 80 MG/ML VIAL IM (12:14)
--- NOTE | 2020-12-26 12:20 | W.PM.PROC2 ---
Procedure Note - Detailed Date of Procedure 12/26/20 Pre-op Diagnosis OA left knee, OA right knee Post-op Diagnosis same Procedure Performed Left total knee replacement, cortisone injection right knee Surgeon Cuauhtemoc Ramsey MD [employer] Anesthesia general Indications severe arthritis and pain Findings same Description of Procedure the patient was brought to the operating room and general anesthesia was administered. The left knee was prepped draped usual fashion. She received 2 g of Ancef weight based vancomycin 1 g of tranexamic acid preoperatively. The left leg was prepped draped usual fashion. After time-out, the leg was exsanguinated tourniquet elevated to 250 mmHg. An 8 in longitudinal incision was made and a standard parapatellar arthrotomy utilized. The patella measured only 18 mm in thickness was very small. It was too thin for safe resurfacing. We carefully contour the patella which included a small lateral facetectomy and contouring the marginal osteophytes. It was scalloped. Infrapatellar and suprapatellar fat pads were excised and a quadriceps synovectomy carried out. A guide taya was inserted on the distal femur and the intramedullary taya inserted after aspiration of the canal. 9 mm of bone removed the distal femur. Next the tibial plateau was cut removing about 1 mm of bone from the posteromedial aspect of the medial tibial plateau which removed 10 mm laterally. The PCL was recessed and flexion gap showed that the medial side had a flexion gap of 9 mm the lateral side 14 mm. The femoral sizing guide was applied and we set this at 5? of external rotation which matched Whitesides line exactly. Posterior referencing pin holes were placed. We noted that the extension gap was tight with the 5 spacer block. We applied the attune Depuy sized to AP cutting guide the femur which fit line to line medial to lateral. The anterior cut floated off the anterior cortex of it. Therefore since she had a larger flexion gap today we posteriorly translated the cutting guide by 1.5 mm and pin the 2 block to femur and AP and chamfer cuts were made. The 2 fit line to line all the way around on the femur this time. The intercondylar box cut was made. We trialed. We were a bit tight medially in flexion extension compared to lateral side. I studied the tibial cut and I felt we might be in 1 degree of valgus therefore we reapplied the tibial cutting guide and removed 1 mm of bone from the medial plateau and transition this to the lateral plateau and made a flat cut. With this done the flexion gap was 5 or 6. The tibia was sized to a size 1 which we rotated to reference off the medial edge of the tibial tubercle. We accepted a couple of mm of posterolateral overhang the anteromedial we were line to line and this gave us reasonable rotation. This was punched. With a smaller implant I might of pursued an extra few degrees of rotation but I did not wish to overhang excessively. We trialed and the 6 had a nice feel at 90? of flexion opening up 0.5 mm medially about 2 mm laterally with just a few mm of anterior drawer. This lacked extension though we were too tight. Therefore additional 2 mm of bone removed the distal femur that chamfer cuts revisited. Residual posterior femoral bone removed this time. On trialing the came out to full extension with a negative bounce with the 6 with 1 mm medial and 2-3 mm lateral opening in extension again appropriate stability at 90? of flexion. We put the tourniquet down earlier at 90 minutes and we re-exsanguinated the limb the tourniquet was that we elevated this time. We irrigated the bone surfaces and used a step drill to make multiple perforations in the areas where the bone was more dense. Her bone density was a little softer than average in general. The bony surfaces were then thoroughly irrigated and dried. We mixed the cement 1 containing the gentamicin powder cement was medially applied the size 1
[2020-12-26] MEDS: ONDANSETRON INJ 4 MG/2 ML VIAL IV PUSH ×3 (12:55→23:01)
[2020-12-26] MEDS: fentaNYL CITRATE INJ (*CRX) 100 MCG/2 ML VIAL 25 MCG IV PUSH ×5 (13:24→14:29)
--- NOTE | 2020-12-26 14:05 | SUR.PHASEI ---
[id number] sbar faxed floor notified
[2020-12-26] MEDS: SODIUM CHLORIDE 0.9% IV 1,000 ML 125 ML IV CONT (15:32)
[2020-12-26] MEDS: oxyCODONE HCL (*CRX) 5 MG TAB IR PO ×3 (15:32→22:20)
--- NOTE | 2020-12-26 15:45 | ADMGEN ---
This patient, Ana Sanchez, was admitted to Medical Room 248-01. Patient/family oriented to hospital policies and general routines including ID bracelet, bed and alarms, visiting hours, pain management, procedures, bathroom and other care routines, personal items, smoking policy, room service/diet, and visiting hours. Information on how to activate the Rapid Response Team has been discussed. Patient/Family are encouraged to report perceived risks to care and to ask questions if they do not understand what they are told or what they should do.
--- NOTE | 2020-12-26 16:30 | WPDCN ---
Assessment and Plan Assessment and plan (1) Arthritis of both knees: Code(s): M17.0 - Bilateral primary osteoarthritis of knee Status: Acute Assessment and Plan: Postoperative day 0 status post left total knee arthroplasty and right knee cortisone injection. Wound care and pain control will be deferred to Dr. Ramsey as well as DVT prophylaxis. Initiate fall precautions. PT / OT consulted. Check hemoglobin and hematocrit in a.m. (2) Hypertension: Code(s): I10 - Essential (primary) hypertension Status: Acute Assessment and Plan: Blood pressures were reviewed and they have been a bit elevated postoperatively. Resume antihypertensives with parameter and monitor closely. (3) Hyperlipidemia: Code(s): E78.5 - Hyperlipidemia, unspecified Status: Chronic Assessment and Plan: Continue statin and check LFTs. (4) Gastroesophageal reflux disease: Code(s): K21.9 - Gastro-esophageal reflux disease without esophagitis Status: Acute Assessment and Plan: No acute issues. Continue PPI. Additional Plan Thank you for allowing us to participate in this patient's care. Please do not hesitate to contact us with any questions. Supervising physician for this medical consultation is Dr. Darius Dial. HPI Data of Consult Date/Time: 12/26/20 16:30 Requesting Physician: Cuauhtemoc Ramsey MD Primary Care Provider: Dane Mcqueen MD Consult Narrative Narrative: This is a 75-year-old female with hypertension, hyperlipidemia, GERD, and osteoarthritis of the knees status post elective left total knee replacement whom the hospitalist service has been consulted for management of her medical conditions postoperatively. She has had longstanding pain in her left knee which has not been amenable to conservative outpatient treatment and thus she elected for replacement today. She has also been having issues with her right knee for which she received a cortisone injection. Her surgery was performed under general anesthesia with no immediate complications documented an estimated blood loss of 250 mL. Postoperatively she has had ongoing issues with nausea and a couple of episodes of emesis. Apparently she has had issues with nausea and vomiting after previous surgeries as well. At this time her pain is manageable and she describes a nearly constant ache in the left knee. She denies paresthesias, skin color, and temperature changes distal to the surgical site. She also denies fever, chills, sweats, chest pain, and shortness of breath. Review of Systems Review of Systems: Narrative: Twelve systems were reviewed with pertinent positives and negatives as per HPI. No recent cold or flu symptoms. No known exposure to those positive for COVID-19. No history of venous thromboembolism. Reports that her glucose runs on the high side on occasion but she is not technically even prediabetic. No history of venous thromboembolism. Except as documented, all other systems were reviewed and are negative. [facility] Past Medical History Medical History (Updated 12/26/20 @ 16:29 by Cassandra Garrett PA-C) Gastroesophageal reflux disease History of colon cancer (1999) History of uterine cancer Hyperlipidemia Hypertension Osteoarthritis Surgical History Surgical History (Updated 12/26/20 @ 16:27 by Cassandra Garrett PA-C) History of appendectomy History of cholecystectomy History of colon resection (1999) With colostomy and subsequent takedown. History of colonoscopy with polypectomy History of hysterectomy for cancer History of tonsillectomy History of total left knee replacement (12/26/20) Family History Family History (Updated 12/26/20 @ 23:39 by Cassandra Garrett PA-C) Other Cancer Diabetes mellitus Social History Social History (Updated 12/26/20 @ 23:39 by Sd
[2020-12-26] MEDS: DOCUSATE SODIUM 100 MG CAPSULE PO (19:14)
[2020-12-26] MEDS: lisinopriL 20 MG TABLET PO (19:14)
[2020-12-27] VITALS (7 sets, daily range): BP systolic 123–148; BP diastolic 49–61; PULSE 71–81; RESP 12–20; TEMP 36.1–36.7; O2SAT 94–99
[2020-12-27] MEDS: ACETAMINOPHEN 500 MG TABLET 1000 MG PO ×3 (03:26→15:11)
[2020-12-27] MEDS: oxyCODONE HCL (*CRX) 5 MG TAB IR PO ×4 (03:26→15:11)
[2020-12-27 05:54] LABS: Basophils Absolute Auto 0.1 K/mm3 (0.0-0.1); Basophils Percent Auto 0.3 % (0.2-1.2); Eosinophils Percent Auto 0.1 % (0-4.4); Hematocrit 35.9 % (37.0-47.0); Hemoglobin 11.7 g/dL (12.0-15.0); Immature Granulocyte Absolute 0.09 K/mm3 (0.00-0.031); Immature Granulocyte Percent A 0.6 % (0-0.5); Lymphocytes Absolute Auto 0.96 K/mm3 (0.9-3.2); Lymphocytes Percent Auto 6.3 % (18.3-44.2); Mean Corpuscular HGB Conc 32.6 g/dl (32-36); Mean Corpuscular Volume 89.1 fl (80-100); Mean Platelet Volume 9.5 fl (7.4-10.4); Monocytes Absolute Auto 0.9 K/mm3 (0.1-0.6); Monocytes Percent Auto 5.9 % (2.6-8.5); Neutrophils Absolute Auto 13.3 K/mm3 (1.3-6.7); Neutrophils Percent Auto 86.8 % (45.5-73.1); Platelet Count Result 282 k/mm3 (150-375); Red Blood Count 4.03 M/mm3 (4.2-5.4); Red Cell Distribution Width 13.8 % (11.5-14.5); White Blood Count 15.3 K/mm3 (4.5-10.0)
[2020-12-27 06:05] LABS: Alanine Aminotransferase 11 U/L (4-35); Albumin Level 3.8 g/dL (3.5-5.1); Alkaline Phosphatase 58 U/L (38-126); Anion Gap 6 mmol/L (8-16); Aspartate Amino Transferase 22 U/L (14-36); Bilirubin,Total 0.6 mg/dL (0.2-1.3); Blood Urea Nitrogen 10 mg/dL (7-17); Calcium 8.8 mg/dL (8.4-10.2); Carbon Dioxide 27 mmol/L (22-30); Chloride 106 mmol/L (98-107); Estimated Glomerular Filt Rate > 60; Glucose 148 mg/dL (65-110); Potassium 4.8 mmol/L (3.4-5.0); Sodium 139 mmol/L (137-145)
--- NOTE | 2020-12-27 06:22 | PM.PNORT ---
Progress Note: A&P Additional Plan Postop day 1 patient is alert and pleasant. She has some nausea yesterday which 1st got up to go to physical therapy. Also about of nausea overnight have stinging pain pills. She is feeling much better this morning having no nausea vomiting. She is tolerating pain pills. Pain is overall very well controlled. Her dressing is dry. Neurovascular she is intact. Her labs were noted. Patient is going to be working with physical therapy several times today to make sure that she is comfortable getting up moving around without having any nausea and her pain stays well controlled. If this is the case then we will plan on sending her home this afternoon. Subjective Subjective Date/Time Seen: 12/27/20 06:22 Objective Data Vital Signs Vital Signs: Vital Signs - 24 hr 12/26/20 12:39 12/26/20 12:45 12/26/20 13:00 Temperature 37.6 C H Pulse Rate 97 100 95 Respiratory Rate 11 L 24 H 16 Blood Pressure 125/57 L 136/63 142/62 H Pulse Oximetry 95 92 94 12/26/20 13:15 12/26/20 13:30 12/26/20 13:45 Temperature Pulse Rate 99 96 99 Respiratory Rate 17 20 22 H Blood Pressure 149/72 H 141/69 H 107/78 Pulse Oximetry 94 95 94 12/26/20 14:05 12/26/20 14:23 12/26/20 14:41 Temperature Pulse Rate 94 93 90 Respiratory Rate 16 20 16 Blood Pressure 131/66 126/59 L 131/62 Pulse Oximetry 94 94 97 12/26/20 14:55 12/26/20 15:15 12/26/20 15:30 Temperature 36.3 C L 36.3 C L Pulse Rate 91 91 89 Respiratory Rate 12 18 18 Blood Pressure 130/73 149/68 H 149/61 H Pulse Oximetry 97 99 98 12/26/20 16:00 12/26/20 16:09 12/26/20 17:00 Temperature 36.2 C L 36.3 C L Pulse Rate 99 87 Respiratory Rate 18 18 Blood Pressure 148/65 H 128/55 L Pulse Oximetry 99 97 100 12/26/20 20:40 12/26/20 23:36 12/27/20 01:30 Temperature 36.8 C 36.7 C Pulse Rate 89 90 74 Respiratory Rate 16 16 Blood Pressure 137/66 140/69 148/61 H Pulse Oximetry 98 98 12/27/20 04:00 12/27/20 04:45 Temperature 36.5 C Pulse Rate 74 75 Respiratory Rate 16 18 Blood Pressure 134/60 Pulse Oximetry 98 99 Intake/Output Intake/Output: Intake & Output 12/24/20 12/25/20 12/26/20 12/27/20 23:59 23:59 23:59 23:59 Intake Total 2200 250 Balance 2200 250 Meds/Results Medications: Active Medications Generic Name Dose Route Start Last Admin Trade Name Natividad PRN Reason Stop Dose Admin Acetaminophen 1,000 mg 12/26/20 16:00 12/27/20 03:26 Acetaminophen 500 Mg Tablet PO 1,000 mg Q6H MATTY Administration Amlodipine Besylate 5 mg 12/27/20 09:00 Amlodipine Besylate 5 Mg Tablet PO DAILY [facility] Apixaban 2.5 mg 12/27/20 09:00 Apixaban 2.5 Mg Tablet PO 01/24/21 09:01 Q12HR [facility] Atorvastatin Calcium 40 mg 12/27/20 09:00 Atorvastatin 40 Mg Tablet PO QAM [facility] Docusate Sodium 100 mg 12/26/20 17:00 12/26/20 19:14 Docusate Sodium 100 Mg Capsule PO 100 mg BID MATTY Administration Ergocalciferol 50,000 unit 01/01/21 09:00 Ergocalciferol 50,000 Unit Capsule PO Martínez@0900 [facility] Cefazolin Sodium 1 gm in 50 mls @ 100 mls/hr 12/26/20 16:00 12/26/20 23:35 Ancef 1 Gm/D5w 50 Ml Pm IVPB 12/27/20 08:29 Infused Q8H [facility] Infusion Vancomycin HCl 1,000 mg in 250 mls @ 250 mls/hr 12/26/20 19:00 12/27/20 06:22 Vancomycin 1,000 Mg/D5w 250 Ml IVPB 12/27/20 07:59 250 mls/hr Q12H MATTY Administration Lisinopril 20 mg 12/26/20 17:00 12/26/20 19:14 Lisinopril 20 Mg Tablet PO 20 mg QAM [facility] Administration Meloxicam 7.5 mg 12/27/20 08:00 Meloxicam 7.5 Mg Tablet PO DAILY@0800 [facility] Morphine Sulfate 2 mg 12/26/20 15:00 Morphine Sulfate (*Crx) 2 Mg/Ml Inj IV PUSH Q1H PRN Pain Rated 7-10 Naloxone HCl 0.1 mg 12/26/20 15:00 Naloxone Hcl 0.4 Mg/Ml Vial IV PUSH Q2M PRN Opiate Reversal Ondansetron HCl 4 mg 12/26/20 15:00 12/26/20 23:01 Ondansetron Inj 4 Mg/2 Ml Vial IV PUSH 4 mg Q4H PRN Administration Na
--- NOTE | 2020-12-27 06:29 | PM.DS ---
DS: Admitting Diagnosis Admitting Diagnosis left knee DJD DS: Summary Hospital Course Hospital Course: stable Time Spent with Patient Time attestation: Total time spent providing and/or coordinating discharge services:75 y/o female who underwent left total knee arthroplasty by Dr. Ramsey on 12/26. Underwent the procedure without complications, post-op she did has nausea when she first got up with PT the day of surg. She was unable to participate with PT that day. Nausea improved overnight, pain is well controlled POD 1 morning, dressing is dry NVI, pain is controlled with oxycodone 5 mg. She is also on schedule Tylenol. She is on meloxicam 7.5 mg as well. She is on Eliquis for DVT prophylaxis. We will be using extended Eliquis and she is allergic to aspirin. She will go home on a 10 day course Keflex due to her obesity. She will also go home on Senokot and MiraLax. Patient was advised to keep leg elevated at home but do exercise on a regular basis. She has outpatient therapy starting later this week. She was advised any questions or concerns she should call the office otherwise will see her appointment date. DS: Data Data Completed and Pending Labs on day of discharge: Labs from last 24 hours 12/27/20 12/27/20 05:24 05:24 WBC 15.3 H RBC 4.03 L Hgb 11.7 L Hct 35.9 L MCV 89.1 MCH 29.0 MCHC 32.6 RDW 13.8 Plt Count 282 MPV 9.5 Immature Gran % (Auto) 0.6 H Neut % (Auto) 86.8 H Lymph % (Auto) 6.3 L [place] % (Auto) 5.9 Eos % (Auto) 0.1 Baso % (Auto) 0.3 Lymph # (Auto) 0.96 [place] # (Auto) 0.9 H Eos # (Auto) 0.0 Baso # (Auto) 0.1 Abs Immat Gran (auto) 0.09 H Absolute Neuts (auto) 13.3 H Absolute Nucleated RBC 0.0 Nucleated RBC % 0.0 Sodium 139 Potassium 4.8 Chloride 106 Carbon Dioxide 27 Anion Gap 6 L BUN 10 D Creatinine 0.70 Estim Creat Clear Calc Not Reportable Estimated GFR > 60 Glucose 148 H Calcium 8.8 Total Bilirubin 0.6 Direct Bilirubin 0.0 AST 22 ALT 11 Alkaline Phosphatase 58 Total Protein 7.0 Albumin 3.8 Discharge Plan Discharge Patient Disposition: Home, Self-Care Discharge Instructions: CUAUHTEMOC RAMSEY M.D [facility], [address] [address] POST-OPERATIVE DISCHARGE INSTRUCTIONS TOTAL KNEE ARTHROPLASTY 1. When resting, lie on back with leg elevated above hear to minimize swelling. Significant swelling could indicate a blood clot and if this occurs call the office (or go to the ER) to have a venous ultrasound. 2. Do exercise 5 times a day. 3. Do not sit with leg down except for meals. 4. Wound Care: Nursing will give additional dressings at discharge. Patient to change dressing at home 1 week from surgery, then maintain until seen in office. 5. May shower with dressing in place. 6. Follow weight bearing status instructions. 7. Limit sitting in chair to 20 min at a time 4 times a day Patient Instructions: Pain Management in Older Adults (DC), Precautions after Total Joint Replacement Surgery (ED), Joint Replacement Surgery (DC), Knee Replacement (DC) Follow-up/Referrals: Cuauhtemoc Ramsey MD [Physician] - Keep Reg. Scheduled Appt. Discharge Medications: New acetaminophen 500 mg Tablet 1,000 mg PO Q6H Qty: 90 RF: 0 Eliquis 2.5 mg Tablet 2.5 mg PO Q12HR Qty: 83 RF: 0 polyethylene glycol 3350 [Miralax] 17 gram Powder In Packet 17 g PO QAM Qty: 30 RF: 0 meloxicam [Mobic] 7.5 mg Tablet 7.5 mg PO DAILY@0800 Qty: 30 RF: 0 oxycodone 5 mg Tablet 5 mg PO Q4H Qty: 40 RF: 0 sennosides-docusate sodium 8.6-50 mg tablet 2 tab-cap PO BID Qty: 60 RF: 0 cephalexin 500 mg capsule 500 mg PO Q6H Qty: 40 RF: 0 Continued atorvastatin 40 mg tablet 40 mg PO QAM RF: 0 lisinopril 20 mg tablet 20 mg PO QAM RF: 0 pantoprazole [Protonix] 40 mg tablet,delayed release (DR/EC) 40
--- NOTE | 2020-12-27 07:25 | P.PNAN_ITS ---
Anes - Prog Note Post-Op Date/Time: 12/27/20 07:25 Cardiovascular status: normal Respiratory status: normal Airway patency: baseline Mental status: baseline Post-Op hydration status: normal Vital Signs: Last Vital Signs Temp 36.5 C 12/27/20 04:45 Pulse 77 12/27/20 07:10 Resp 18 12/27/20 04:45 BP 134/60 12/27/20 04:45 Pulse Ox 98 12/27/20 07:10 Pain Score (VAS): 3 I/O: Intake & Output 12/26/20 12/26/20 12/27/20 15:59 23:59 07:59 Intake Total 800 1400 250 Balance 800 1400 250 Laboratory Tests 12/27/20 05:24 12/27/20 05:24 12/27/20 12/27/20 05:24 05:24 WBC 15.3 H RBC 4.03 L Hgb 11.7 L Hct 35.9 L MCV 89.1 MCH 29.0 MCHC 32.6 RDW 13.8 Plt Count 282 MPV 9.5 Immature Gran % (Auto) 0.6 H Neut % (Auto) 86.8 H Lymph % (Auto) 6.3 L [place] % (Auto) 5.9 Eos % (Auto) 0.1 Baso % (Auto) 0.3 Lymph # (Auto) 0.96 [place] # (Auto) 0.9 H Eos # (Auto) 0.0 Baso # (Auto) 0.1 Abs Immat Gran (auto) 0.09 H Absolute Neuts (auto) 13.3 H Absolute Nucleated RBC 0.0 Nucleated RBC % 0.0 Sodium 139 Potassium 4.8 Chloride 106 Carbon Dioxide 27 Anion Gap 6 L BUN 10 D Creatinine 0.70 Estim Creat Clear Calc Not Reportable Estimated GFR > 60 Glucose 148 H Calcium 8.8 Total Bilirubin 0.6 Direct Bilirubin 0.0 AST 22 ALT 11 Alkaline Phosphatase 58 Total Protein 7.0 Albumin 3.8 Post-procedural complaints: none Patient Feedback: Patient satisfied with anesthetic care.
[2020-12-27] MEDS: lisinopriL 20 MG TABLET PO (08:21)
[2020-12-27] MEDS: MELOXICAM 7.5 MG TABLET PO (08:21)
[2020-12-27] MEDS: APIXABAN 2.5 MG TABLET PO (08:21)
[2020-12-27] MEDS: SPIRONOLACTONE 25 MG TABLET PO (08:22)
[2020-12-27] MEDS: PANTOPRAZOLE 40 MG TABLET PO (08:22)
[2020-12-27] MEDS: DOCUSATE SODIUM 100 MG CAPSULE PO ×2 (08:22→15:56)
[2020-12-27] MEDS: amLODIPine BESYLATE 5 MG TABLET PO (08:22)
[2020-12-27] MEDS: polyethylene glycoL 3350 17 GM POWD.PACK PO (08:22)
[2020-12-27] MEDS: ATORVASTATIN 40 MG TABLET PO (08:22)
[2020-12-27 09:11] LABS: Vitamin D 25 Hydroxy 53.3 ng/mL
--- NOTE | 2020-12-27 10:25 | PM.IMPN ---
Progress Note: A&P Assessment and Plan (1) Arthritis of both knees: Code(s): M17.0 - Bilateral primary osteoarthritis of knee Status: Acute Assessment and Plan: Postoperative day 1 status post left total knee arthroplasty and right knee cortisone injection. -Wound care and pain control will be deferred to Dr. Ramsey as well as DVT prophylaxis. - continue PT / OT - okay to discharge from medical standpoint (2) Hypertension: Code(s): I10 - Essential (primary) hypertension Status: Acute Assessment and Plan: last blood pressure 134/60 - continue amlodipine, spironolactone, and lisinopril (3) Hyperlipidemia: Code(s): E78.5 - Hyperlipidemia, unspecified Status: Chronic Assessment and Plan: Continue statin outpatient (4) Gastroesophageal reflux disease: Code(s): K21.9 - Gastro-esophageal reflux disease without esophagitis Status: Acute Assessment and Plan: No acute issues. Continue PPI. Additional Plan Thank you for allowing us to participate in this patient's care. please contact us for any further questions. Time Spent With Patient Time with patient: 25 - 35 minutes Subjective Date/time seen: 12/27/20 10:25 Interval history: Pt is a 75-year-old female here for left knee replacement. Patient was seen today and states she is doing well. She was currently walking with the aid and said when she walks she has a pain of 8/10 but when she is resting it is 5/10. She has not completed the stairs yet but is going to do so later today. She said she lives at home with her he is going to help her out. She said she ate a regular breakfast this morning and she had no nausea or vomiting. She denies chest pain, fevers, shortness of breath, or fevers. Review of Systems Review of Systems: All systems reviewed & are unremarkable except as noted in HPI and below Exam Narrative: Exam Narrative: General: Well developed well nourished patient in NAD HEENT: normocephalic Neck: supple Neuro: Alert and oriented x4 CV:RRR Resp:CTA Abd: Soft, non distended. No pain to palpation. Positive bowel sounds Extremities: left knee slightly swollen but expected after surgery. No erythema, dehiscence or discharge noted on the bandage. Pulses intact Objective Data Vital Signs Vital Signs: Vital Signs - 24 hr 12/26/20 12:39 12/26/20 12:45 12/26/20 13:00 Temperature 99.7 F H Pulse Rate 97 100 95 Respiratory Rate 11 L 24 H 16 Blood Pressure 125/57 L 136/63 142/62 H Pulse Oximetry 95 92 94 12/26/20 13:15 12/26/20 13:30 12/26/20 13:45 Temperature Pulse Rate 99 96 99 Respiratory Rate 17 20 22 H Blood Pressure 149/72 H 141/69 H 107/78 Pulse Oximetry 94 95 94 12/26/20 14:05 12/26/20 14:23 12/26/20 14:41 Temperature Pulse Rate 94 93 90 Respiratory Rate 16 20 16 Blood Pressure 131/66 126/59 L 131/62 Pulse Oximetry 94 94 97 12/26/20 14:55 12/26/20 15:15 12/26/20 15:30 Temperature 97.3 F L 97.3 F L Pulse Rate 91 91 89 Respiratory Rate 12 18 18 Blood Pressure 130/73 149/68 H 149/61 H Pulse Oximetry 97 99 98 12/26/20 16:00 12/26/20 16:09 12/26/20 17:00 Temperature 97.2 F L 97.3 F L Pulse Rate 99 87 Respiratory Rate 18 18 Blood Pressure 148/65 H 128/55 L Pulse Oximetry 99 97 100 12/26/20 20:40 12/26/20 23:36 12/27/20 01:30 Temperature 98.3 F 98.1 F Pulse Rate 89 90 74 Respiratory Rate 16 16 Blood Pressure 137/66 140/69 148/61 H Pulse Oximetry 98 98 12/27/20 04:00 12/27/20 04:45 12/27/20 07:10 Temperature 97.7 F Pulse Rate 74 75 77 Respiratory Rate 16 18 Blood Pressure 134/60 Pulse Oximetry 98 99 98 Intake/Output Intake/Output: Intake & Output 12/24/20 12/25/20 12/26/20 12/27/20 23:59 23:59 23:59 23:59 Intake Total 2200 300 Balance 2200 300 Meds/Results Medications: Active Medications Generic Name Dose Route Start Last Admin Trade Name Natividad TINOCO
== END 2020-12-27 16:30 | disposition home or self-care (01) ==
LOC: ANHSURGERY 05:54 → ANH2MED 15:16
PROVIDERS: PCP Internal Medicine; Visit Provider Orthopaedic Surgery
PROC: (CPT 27447; principal; 2020-12-26 07:30)
PROC: (CPT 27447; 2020-12-26 07:30)
DX: M17.0 Bilateral primary osteoarthritis of knee (principal); K21.9 Gastro-esophageal reflux disease without esophagitis; Z85.038 Personal history of other malignant neoplasm of large intestine; E78.5 Hyperlipidemia, unspecified; I10 Essential (primary) hypertension; Z87.891 Personal history of nicotine dependence; E66.9 Obesity, unspecified; Z68.32 Body mass index [BMI] 32.0-32.9, adult; Z79.899 Other long term (current) drug therapy
CPT/HCPCS: 27447; 20610; 36415; 73560; 80048; 80076; 80307; 82040; 82306; 83036; 85025; 86850; 86900; 86901; 87070; 87077; 87186; 93005; 97110; 97116; 97161; 97165; A9270; C1713; C1776; J0171; J0690; J1040; J1100; J1170; J2270; J2370; J2405; J2704; J2795; J3010; J3370; J7030; J7120

== ENCOUNTER 2020-12-29 10:36 | Outpatient (RCR) | payer MEDICARE, SELFPAY ==
--- NOTE | 2020-12-29 12:45 | PTOPEVAL ---
Thank you for referring Ana Sanchez to [facility].? The patient is scheduled to be seen for therapy? ____x/week for ___ weeks. Please review, sign, date and return this plan of care JEFF. I agree with and certify that the following plan of care is medically necessary. Referring Physician Date Admitting Provider: Attending Provider: Cuauhtemoc Ramsey MD Referring Provider: *PT Outpatient Evaluation Start: 12/29/20 10:58 Freq: Status: Active Protocol: Document 12/29/20 11:00 [facility] (Rec: 12/29/20 12:41 [facility] [id number]) Therapy Assessment Status Assessment Status Assessment Status Evaluation Outpatient Past Medical History Neurological History Hx Neurological Disorders No Significant History Cardiovascular History Hx Hypercholesterolemia Yes Hx Hypertension Yes Respiratory History Hx Bronchitis Yes Hx Pneumonia Yes Gastrointestinal History Hx Appendectomy Yes Hx Bowel Surgery Yes: COLON CANCER Hx Cholecystectomy Yes Hx Gastroesophageal Reflux Disease Yes Hx Hemorrhoids Yes Hx Polyps Yes Hx Other Gastrointestinal Disorders Yes: BILE DUCT SURGERY Genitourinary History Hx Urinary Tract Infection Yes Musculoskeletal History Hx Back Pain Yes: WITH ACTIVITY-WEARS BACK BRACE Hx Crutches or Walker Use Yes: HAS WALKER FOR POST OP Query Text:If Yes, Enter Crutches, USE Walker, or Both in the Comment Hematological History Hx Blood Transfusions Yes Endocrine History Hx Endocrine Disorders No Significant History HEENT History Hx Cataracts Yes: NO SURGERY Hx Tonsillectomy Yes Hx Dental Problems Yes: MISSING BOTTOM TEETH Hx Other HEENT Disorders Yes: GLASSES Integumentary History Hx Skin Disorders No Significant History Reproductive History Hx Hysterectomy Yes: UTERINE CANCER Psychosocial History Hx Psychiatric Disorders No Significant History Pain History Has Past Pain Affected Your Daily Life Yes: BILATERAL KNEES/BACK Anesthesia History Hx Post-Op Nausea/Vomiting Yes Other History Hx Cancer Yes: COLON & UTERINE Evaluation Information Problem Diagnosis s/p L TKA Onset 12/26/20 Additional Evaluation Detail LEFS = 97% functinoally declined Subjective Information patient reports she was Query Text:As Reported By Patient/ operated on this past saturday Family for a TKA of the L knee. she reports she was struggling to walk prior to her surgery as
--- NOTE | 2021-01-19 13:56 | PTOPEVAL ---
Thank you for referring Ana Sanchez to [facility].? The patient is scheduled to be seen for therapy? ____x/week for ___ weeks. Please review, sign, date and return this plan of care JEFF. I agree with and certify that the following plan of care is medically necessary. Referring Physician Date Admitting Provider: Attending Provider: Cuauhtemoc Ramsey MD Referring Provider: *PT Outpatient Evaluation Start: 12/29/20 10:58 Freq: Status: Active Protocol: Document 01/19/21 13:00 [facility] (Rec: 01/19/21 13:55 [facility] [id number]) Therapy Assessment Status Assessment Status Assessment Status Progress Outpatient Past Medical History Neurological History Hx Neurological Disorders No Significant History Cardiovascular History Hx Hypercholesterolemia Yes Hx Hypertension Yes Respiratory History Hx Bronchitis Yes Hx Pneumonia Yes Gastrointestinal History Hx Appendectomy Yes Hx Bowel Surgery Yes: COLON CANCER Hx Cholecystectomy Yes Hx Gastroesophageal Reflux Disease Yes Hx Hemorrhoids Yes Hx Polyps Yes Hx Other Gastrointestinal Disorders Yes: BILE DUCT SURGERY Genitourinary History Hx Urinary Tract Infection Yes Musculoskeletal History Hx Back Pain Yes: WITH ACTIVITY-WEARS BACK BRACE Hx Crutches or Walker Use Yes: HAS WALKER FOR POST OP Query Text:If Yes, Enter Crutches, USE Walker, or Both in the Comment Hematological History Hx Blood Transfusions Yes Endocrine History Hx Endocrine Disorders No Significant History HEENT History Hx Cataracts Yes: NO SURGERY Hx Tonsillectomy Yes Hx Dental Problems Yes: MISSING BOTTOM TEETH Hx Other HEENT Disorders Yes: GLASSES Integumentary History Hx Skin Disorders No Significant History Reproductive History Hx Hysterectomy Yes: UTERINE CANCER Psychosocial History Hx Psychiatric Disorders No Significant History Pain History Has Past Pain Affected Your Daily Life Yes: BILATERAL KNEES/BACK Anesthesia History Hx Post-Op Nausea/Vomiting Yes Other History Hx Cancer Yes: COLON & UTERINE Evaluation Information Problem Diagnosis s/p L TKA Onset 12/26/20 Subjective Information patient reports she feels Query Text:As Reported By Patient/ alright this date. she Family reports she has felt much better lately. however, she reports she continues to have pain with bending her L knee. she reports she returns to her
--- NOTE | 2021-03-30 09:44 | PCPTNOTE ---
DC patient account as she has had the other knee replaced and will be returning to therapy for this next week. SAMEERA
== END 2021-02-02 15:00 | disposition home or self-care (01) ==
LOC: CHSPT 10:36
PROVIDERS: Visit Provider Orthopaedic Surgery
DX: Z96.652 Presence of left artificial knee joint (principal)
CPT/HCPCS: 97016; 97110; 97161; 97530

== ENCOUNTER 2021-03-23 10:00 | Outpatient (CLI) | payer MEDICARE, SELFPAY | END 2021-03-23 13:04 | PROVIDERS: Visit Provider Orthopaedic Surgery | DX: Z01.818 Encounter for other preprocedural examination (principal); M19.90 Unspecified osteoarthritis, unspecified site | CPT/HCPCS: 80048; 80307; 82040; 83036; 85025; 86850; 86900; 86901; 87070 ==

== ENCOUNTER 2021-03-29 02:15 | Day surgery (SDC) | payer MEDICARE, SELFPAY ==
[2021-03-23 14:13] VITALS: BMI 32.9
[2021-03-23 14:55] LABS: Basophils Absolute Auto 0.1 K/mm3 (0.0-0.1); Basophils Percent Auto 0.7 % (0.2-1.2); Eosinophils Absolute Auto 0.1 K/mm3 (0-0.3); Hematocrit 43.4 % (37.0-47.0); Hemoglobin 14.4 g/dL (12.0-15.0); Immature Granulocyte Absolute 0.02 K/mm3 (0.00-0.031); Immature Granulocyte Percent A 0.2 % (0-0.5); Lymphocytes Absolute Auto 2.28 K/mm3 (0.9-3.2); Lymphocytes Percent Auto 24.8 % (18.3-44.2); Mean Corpuscular HGB Conc 33.2 g/dl (32-36); Mean Corpuscular Hemoglobin 30.5 pg (26-34); Mean Corpuscular Volume 91.9 fl (80-100); Monocytes Absolute Auto 0.6 K/mm3 (0.1-0.6); Monocytes Percent Auto 6.4 % (2.6-8.5); Neutrophils Absolute Auto 6.2 K/mm3 (1.3-6.7); Neutrophils Percent Auto 66.9 % (45.5-73.1); Platelet Count Result 351 k/mm3 (150-375); Red Blood Count 4.72 M/mm3 (4.2-5.4); Red Cell Distribution Width 13.7 % (11.5-14.5); White Blood Count 9.2 K/mm3 (4.5-10.0)
[2021-03-23 15:07] LABS: Anion Gap 10 mmol/L (8-16); Blood Urea Nitrogen 16 mg/dL (7-17); Carbon Dioxide 27 mmol/L (22-30); Chloride 101 mmol/L (98-107); Estimated Glomerular Filt Rate > 60; Glucose 106 mg/dL (65-110); Sodium 138 mmol/L (137-145)
[2021-03-23 15:10] LABS: Hemoglobin A1C 5.3 % (<5.7)
[2021-03-23 15:13] LABS: Urine Cotinine NEGATIVE
--- NOTE | 2021-03-27 12:07 | PM.IMHP ---
H&P: HPI History of Present Illness Date/Time: 03/27/21 12:07 75 [address] of Dr[address] Mcqueen who presents today for a right total knee arthroplasty. She underwent left total knee arthroplasty approximately 3 months ago and did very well with her recovery. She has severe arthritis in the right knee. He remains very symptomatic for her. She feels that she has recovered well from her left total knee and is ready to proceed with the right. <DOYLE Xie - Last Filed: 03/27/21 12:16> Chief Complaint: Right knee DJD <DOYLE Xie - Last Filed: 03/27/21 12:16> Review of Systems Review of Systems: All systems reviewed & are unremarkable except as noted in HPI and below <DOYLE Xie - Last Filed: 03/27/21 12:16> [facility] Past Medical History Medical History: Medical History Gastroesophageal reflux disease History of colon cancer (1999) History of uterine cancer Hyperlipidemia Hypertension Osteoarthritis <DOYLE Xie - Last Filed: 03/27/21 12:16> Surgical History Surgical History: Surgical History History of appendectomy History of cholecystectomy History of colon resection (1999) With colostomy and subsequent takedown. History of colonoscopy with polypectomy History of hysterectomy for cancer History of tonsillectomy History of total left knee replacement (12/26/20) <DOYLE Xie - Last Filed: 03/27/21 12:16> Family History Family History: Family History Other Cancer Diabetes mellitus <DOYLE Xie - Last Filed: 03/27/21 12:16> Social History Social History: Social History Social History: Surrogate decision maker: Pierre Sanchez, spouse. Code status: full code. Smoking packs per day: 1 Smoking cigarettes per day: 20.0 Years smoked: 35 Smoking pack-years: 35.00 Smoking status: Former smoker Second hand tobacco smoke exposure: No Additional smoking assessment comments: QUIT 2013 Alcohol intake: never Substance use: never Substance use type: does not use Living arrangements: with family Additional living arrangements comments: The patient lives with her in [place]. 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 Spiritual care concerns: No <DOYLE Xie - Last Filed: 03/27/21 12:16> Meds Home Medications and Allergies Home medications: Home Medications Medication Instructions Recorded Confirmed Type atorvastatin 40 mg PO QAM 10/16/19 03/29/21 History ergocalciferol (vitamin D2) 1,250 mcg PO WEEKLY 10/16/19 03/29/21 History lisinopril 20 mg PO QAM 10/16/19 03/29/21 History pantoprazole [Protonix] 40 mg PO DAILY 10/16/19 03/29/21 History amlodipine 5 mg PO QAM 12/26/20 03/29/21 History spironolactone 25 mg PO DAILY 12/26/20 03/29/21 History meloxicam [Mobic] 7.5 mg PO DAILY@0800 #30 tablet 12/27/20 03/23/21 Rx acetaminophen 1,000 mg PO Q6H PRN 03/23/21 03/29/21 History <DOYLE Xie - Last Filed: 03/27/21 12:16> Allergies/Adverse reactions: Allergies Allergy/AdvReac Type Severity Reaction Status Date / Time sulfamethoxazole Allergy Severe Hives Verified 03/23/21 14:06 [From Bactrim] trimethoprim [From Bactrim] Allergy Severe Hives Verified 03/23/21 14:06 Sulfa (Sulfonamide Allergy Hives Verified 03/29/21 10:42 Antibiotics) <DOYLE Xie - Last Filed: 03/27/21 12:16> Exam Narrative: 75-year-old female alert pleasant. She is 4 ft 7 and 138 lb. She walks with a mild limp due to pain in the right knee. Right knee range of motion is from 3-120 degrees. She has pain at full flexion. Mild to moderate medial pseudolaxity to valgus stress. 2+ dorsalis pedis and post tibial artery pulse. Normal sensation. Hip range mot
--- NOTE | 2021-03-28 15:28 | WPDANESEPPF ---
Anes - Initial Pre Proc Eval Procedure: Operation Date: 03/29/21 12:00 Proposed Procedures p Right Total Knee Arthroplasty - Cuauhtemoc Ramsey MD Date/Time: 03/28/21 15:28 Surgeon: Cuauhtemoc Ramsey MD Pre Op Diagnosis: Right Knee OA Patient Data Age: 75 Gender: F Height: 1.37 m Weight: 62 kg Allergies Allergy/AdvReac Type Severity Reaction Status Date / Time sulfamethoxazole Allergy Severe Hives Verified 03/23/21 14:06 [From Bactrim] trimethoprim [From Bactrim] Allergy Severe Hives Verified 03/23/21 14:06 Sulfa (Sulfonamide Allergy Hives Verified 03/29/21 10:42 Antibiotics) Home Medications Medication Instructions Recorded Confirmed Type atorvastatin 40 mg PO QAM 10/16/19 03/29/21 History ergocalciferol (vitamin D2) 1,250 mcg PO WEEKLY 10/16/19 03/29/21 History lisinopril 20 mg PO QAM 10/16/19 03/29/21 History pantoprazole [Protonix] 40 mg PO DAILY 10/16/19 03/29/21 History amlodipine 5 mg PO QAM 12/26/20 03/29/21 History spironolactone 25 mg PO DAILY 12/26/20 03/29/21 History meloxicam [Mobic] 7.5 mg PO DAILY@0800 #30 tablet 12/27/20 03/23/21 Rx acetaminophen 1,000 mg PO Q6H PRN 03/23/21 03/29/21 History Patient hx anesthesia problems: none Family hx anesthesia problems: none Results Review: All pre-operative results and documents have been reviewed as part of the pre-operative evaluation. [facility] Past Medical History Medical History Gastroesophageal reflux disease History of colon cancer (1999) History of uterine cancer Hyperlipidemia Hypertension Osteoarthritis Surgical History Surgical History History of appendectomy History of cholecystectomy History of colon resection (1999) With colostomy and subsequent takedown. History of colonoscopy with polypectomy History of hysterectomy for cancer History of tonsillectomy History of total left knee replacement (12/26/20) Family History Family History Other Cancer Diabetes mellitus Social History Social History Social History: Surrogate decision maker: Pierre Sanchez, spouse. Code status: full code. Smoking packs per day: 1 Smoking cigarettes per day: 20.0 Years smoked: 35 Smoking pack-years: 35.00 Smoking status: Former smoker Second hand tobacco smoke exposure: No Additional smoking assessment comments: QUIT 2013 Alcohol intake: never Substance use: never Substance use type: does not use Living arrangements: with family Additional living arrangements comments: The patient lives with her in [place]. 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 Spiritual care concerns: No Anes - Eval Final PreProcedure Day of Procedure 03/28/21 15:28 Patient weight: obese Heart: regular rate and rhythm Lungs: clear to auscultation Airway: Mallampati scale class II Neurological: alert and oriented Last oral intake: >/= 8 hours ASA classification: III Emergent: no Anesthetic plan: proceed Anesthesia type and monitoring: general LMA and standard monitoring Results Review: All pre-operative results and documents have been reviewed as part of the pre-operative evaluation. Informed Consent: The patient's anesthetic plan and its attendant risks and benefits were discussed with the patient/family/POA. Questions were solicited and answers provided to the satisfaction of the patient/family/POA.
[2021-03-29] VITALS (16 sets, daily range): BP systolic 102–150; BP diastolic 39–90; PULSE 79–105; RESP 18; TEMP 35.9–37.2; O2SAT 90–100
--- NOTE | ~2021-03-29 | XR_ITS ---
EXAMINATION: XR knee RT 2V DATE: 03/29/2021 17:07 CDT INDICATION: Right total knee arthroplasty TECHNIQUE: 2 views right knee FINDINGS: There is a right total knee arthroplasty in expected position. Subcutaneous gas with fluid and air in the joint are consistent with recent surgery. No evidence of periprosthetic fracture. IMPRESSION: 1. Recent right total knee arthroplasty. Reviewed, dictated and finalized at location A.
[2021-03-29] MEDS: TRANEXAMIC ACID 1,000MG/ISO100 1,000 MG/100 ML BAG 200 MG IVPB ×2 (10:15→15:52)
[2021-03-29] MEDS: LACTATED RINGERS 1,000 ML 30 ML IV CONT ×2 (10:15→16:44)
[2021-03-29] MEDS: ACETAMINOPHEN 500 MG TABLET 1000 MG PO ×2 (10:19→23:30)
[2021-03-29] MEDS: ONDANSETRON INJ 4 MG/2 ML VIAL IV PUSH ×2 (11:05→17:19)
--- NOTE | 2021-03-29 11:52 | WPDHPUPDATE1 ---
History and Physical Update Update Date/Time: 03/29/21 11:52 History and Physical has been reviewed, including an updated exam of the patient. There are NO changes in the patient's condition. Risks, benefits, and alternatives have been discussed and questions answered. Patient agrees to proceed with procedure.
[2021-03-29] MEDS: ceFAZolin 2 GM/D5W 50 ML 2 GM/50 ML BAG IVPB (12:12)
[2021-03-29] MEDS: GENTAMICIN BONE CEMENT REFOBACIN 1 EACH TOPICAL (13:03)
[2021-03-29] MEDS: ceFAZolin SODIUM 1 GM VIAL 3 GM IRRIGATION (13:07)
[2021-03-29] MEDS: ceFAZolin SODIUM 1 GM VIAL IV PUSH (15:53)
[2021-03-29] MEDS: ceFAZolin SODIUM 1 GM VIAL IRRIGATION (16:01)
--- NOTE | 2021-03-29 16:49 | W.PM.PROC2 ---
Procedure Note - Detailed Date of Procedure 03/29/21 Pre-op Diagnosis Right Knee OA Post-op Diagnosis same Procedure Performed Right total knee arthroplasty Surgeon Cuauhtemoc Ramsey MD [place] Techn[facility] [place] Anesthesia general Description of Procedure Patient was brought to the operating room general anesthesia was administered. The right knee was prepped draped usual fashion. She received weight based vancomycin 2 g of Ancef 1 g of tranexamic acid preoperatively. Right leg was prepped draped usual fashion. The was examined and tourniquet elevated to 250 mmHg. A 7 in longitudinal midline incision was used. A standard parapatellar arthrotomy utilized. Infrapatellar and suprapatellar fat pads were excised a quadriceps synovectomy carried out. The patella was very very small. Cartilage of the patella was normal. I felt this was. apPropriate for non resurfacing. A conservative lateral facetectomy was performed. A guide taya was inserted down the femoral canal after aspiration of canal contents using the 5 degree valgus cutting bushing 9 mm of bone removed from distal femur. Next the tibial plateau was cut removing a skim cut from the low point of the medial tibial plateau which removed about 8 laterally. The cut was made perpendicular to the axis of the tibia. This could remnants were excised PCL was recessed. Posterior referencing pinholes were placed using the femoral sizing guide set at 5? of external rotation which matched [place]ites[place] line. She had a very ample flexion gap. We used the attune size 2 cutting block posterior eyes 1.5 mm AP and chamfer cuts were made and the intercondylar notch bone cut off the posterior stabilized housing. Tibia was sized to a size attune 1 rotation set relative to the 2nd metatarsal medial 1/3 of tibial tubercle and gave us line to line contact anteromedially and the right rotation it hung over the posterior margin of the lateral plateau about a mm flush the anterior proximal lateral plateau so she is very very small this was punched and we trialed. We were very tight in extension with a 5 insert. Additional 2 mm of bone removed the distal femur posterior medial osteophyte removed. On trialing the knee came out to just full extension with a 5 but I thought it was loose at 90? of flexion with a 5 trialed a 6 and had a much more appropriate feel but lacked 2 or 3? of extension. An additional 1 mm bone was removed from the distal femur at this time box cut revisited. And trialing we now had full extension with a negative bounce the 6 mm insert no medial opening to valgus stress in extension a mm medial opening 5?. 3 mm lateral opening extension and appropriate stability at 90? and deep flexion. Satisfied with this the limb was exsanguinated again tourniquet elevated again to 250 mm Hg. Was lowered down at 90 minutes. Her obesity around the knee combined with her extremely small bone size made the procedure more difficult. The bony surfaces were thoroughly irrigated and dried. Step drill was used to make multiple perforations for cement interdigitation. Two batches of Biomet methylmethacrylate 1 with gentamicin powder were mixed. Cement was applied to the size 1 tibial component and the size 2 PS right femoral component cement applied the tibial plateau and heel and pressurized in the tibial component fully seated. Cement applied to the femur and the femoral component fully seated. The knee was brought into extension with the 6 mm trial insert a tourniquet released. The cement was allowed to harden after which cement was sought for removed and we trialed and the 6 was appropriate with the same findings as described above. The 6 was placed without difficulty. A lateral retinacular release was necessary to achieve optimal patellar tracking this was done just distal to superolateral geniculate artery. Arthrotomy was closed with 2. Vicryl and 1. Unidirectional barbed Stratafix suture skin closed with 2 7 is Vicryl 3-0 subcut
[2021-03-29] MEDS: diphenhydrAMINE HCl INJ 50 MG/ML VIAL 12.5 MG IV PUSH (17:39)
--- NOTE | 2021-03-29 19:32 | ADMGEN ---
This patient, Ana Sanchez, was admitted to 2 Medical Room 260-01. Patient/family oriented to hospital policies and general routines including ID bracelet, bed and alarms, visiting hours, pain management, procedures, bathroom and other care routines, personal items, smoking policy, room service/diet, and visiting hours. Information on how to activate the Rapid Response Team has been discussed. Patient/Family are encouraged to report perceived risks to care and to ask questions if they do not understand what they are told or what they should do.
[2021-03-29] MEDS: DEXTROSE 5%/0.45% SOD CHL 1,000 ML 100 ML IV CONT (20:03)
[2021-03-29] MEDS: oxyCODONE HCL (*CRX) 5 MG TAB IR PO (20:04)
[2021-03-30 03:50] VITALS: BP 108/40; PULSE 70; RESP 16; TEMP 35.8; O2SAT 97
[2021-03-30] MEDS: oxyCODONE HCL (*CRX) 5 MG TAB IR PO ×3 (04:00→12:56)
[2021-03-30 05:12] LABS: Basophils Absolute Auto 0.1 K/mm3 (0.0-0.1); Basophils Percent Auto 0.3 % (0.2-1.2); Hematocrit 33.3 % (37.0-47.0); Hemoglobin 10.8 g/dL (12.0-15.0); Immature Granulocyte Absolute 0.06 K/mm3 (0.00-0.031); Immature Granulocyte Percent A 0.3 % (0-0.5); Lymphocytes Absolute Auto 1.19 K/mm3 (0.9-3.2); Lymphocytes Percent Auto 6.8 % (18.3-44.2); Mean Corpuscular HGB Conc 32.4 g/dl (32-36); Mean Corpuscular Volume 92.5 fl (80-100); Mean Platelet Volume 9.2 fl (7.4-10.4); Monocytes Percent Auto 5.6 % (2.6-8.5); Neutrophils Absolute Auto 15.2 K/mm3 (1.3-6.7); Platelet Count Result 277 k/mm3 (150-375); Red Cell Distribution Width 13.2 % (11.5-14.5); White Blood Count 17.5 K/mm3 (4.5-10.0)
[2021-03-30 05:25] LABS: Anion Gap 7 mmol/L (8-16); Blood Urea Nitrogen 16 mg/dL (7-17); Calcium 8.6 mg/dL (8.4-10.2); Carbon Dioxide 26 mmol/L (22-30); Chloride 101 mmol/L (98-107); Estimated Glomerular Filt Rate > 60; Glucose 136 mg/dL (65-110); Potassium 4.3 mmol/L (3.4-5.0); Sodium 134 mmol/L (137-145)
[2021-03-30] MEDS: ACETAMINOPHEN 500 MG TABLET 1000 MG PO ×2 (06:06→11:50)
--- NOTE | 2021-03-30 06:48 | PM.PNORT ---
Progress Note: A&P Additional Plan Postop day 1 patient is alert. Afebrile vital signs stable. Blood pressure was slightly low this morning patient was having no symptoms from this her diastolic down to 40. She has been up to the chair last night and was comfortable. Pain overall is very well controlled. Her dressing is dry. Neurovascularly is intact. Labs were noted. Overall patient is doing well. She is eager to go home today. Will have her do both therapy sessions and then plan on sending her home after 2nd therapy session as long as she is doing well. Subjective Subjective Date/Time Seen: 03/30/21 06:48 Objective Data Vital Signs Vital Signs: Vital Signs - 24 hr 03/29/21 10:12 03/29/21 16:44 03/29/21 16:55 Temperature 36.7 C 37.2 C Pulse Rate 100 101 H 102 H Respiratory Rate 18 Blood Pressure 150/73 H 125/58 L 125/53 L Pulse Oximetry 100 100 100 03/29/21 17:10 03/29/21 17:25 03/29/21 17:40 Temperature Pulse Rate 102 H 104 H 104 H Respiratory Rate Blood Pressure 144/63 H 140/56 L 121/90 Pulse Oximetry 97 95 90 03/29/21 17:45 03/29/21 17:55 03/29/21 18:05 Temperature 35.9 C L Pulse Rate 100 105 H Respiratory Rate 18 Blood Pressure 137/59 L 130/44 L Pulse Oximetry 95 97 98 03/29/21 18:20 03/29/21 18:50 03/29/21 19:50 Temperature 36.1 C L 36.2 C L 36.3 C L Pulse Rate 100 98 100 Respiratory Rate 18 18 18 Blood Pressure 129/50 L 102/39 L 107/40 L Pulse Oximetry 99 98 98 03/29/21 20:00 03/29/21 21:53 03/29/21 23:10 Temperature 36.1 C L Pulse Rate 98 98 81 Respiratory Rate 18 18 Blood Pressure 108/41 L Pulse Oximetry 99 99 97 03/29/21 23:36 03/30/21 03:50 Temperature 35.9 C L 35.8 C L Pulse Rate 79 70 Respiratory Rate 18 16 Blood Pressure 126/46 L 108/40 L Pulse Oximetry 98 97 Intake/Output Intake/Output: Intake & Output 10/03/28/21 03/29/21 03/30/21 23:59 23:59 23:59 23:59 Intake Total 1750 450 Output Total 1000 Balance 1750 -550 Meds/Results Medications: Active Medications Generic Name Dose Route Start Last Admin Trade Name Freq PRN Reason Stop Dose Admin Acetaminophen 1,000 mg 03/30/21 00:00 03/30/21 06:06 Acetaminophen 500 Mg Tablet PO 1,000 mg Q6H MATTY Administration Amlodipine Besylate 5 mg 03/30/21 09:00 Amlodipine Besylate 5 Mg Tablet PO QAM MATTY Apixaban 2.5 mg 03/30/21 09:00 Apixaban 2.5 Mg Tablet PO Q12HR MATTY Atorvastatin Calcium 40 mg 03/30/21 09:00 Atorvastatin 40 Mg Tablet PO QAM [facility] Cephalexin HCl 500 mg 03/30/21 18:00 Cephalexin 500 Mg Capsule PO 04/11/21 17:59 Q6HR MATTY Ergocalciferol 50,000 unit 04/02/21 09:00 Ergocalciferol 50,000 Unit Capsule PO Martínez@0900 MATTY Cefazolin Sodium 1 gm in 50 mls @ 100 mls/hr 03/29/21 20:00 03/30/21 04:29 Ancef 1 Gm/D5w 50 Ml Pm IVPB 03/30/21 12:29 Infused Q8H MATTY Infusion Dextrose/Sodium Chloride 1,000 mls @ 100 mls/hr 03/29/21 18:05 03/29/21 20:03 Dextrose 5% Sodium Chloride 0.45% IV CONT 100 mls/hr .Q10H MATTY Administration Vancomycin HCl 1,000 mg in 250 mls @ 250 mls/hr 03/29/21 22:00 03/29/21 22:00 Vancomycin 1,000 Mg/D5w 250 Ml IVPB 03/30/21 10:59 Infused Q12H MATTY Infusion Lisinopril 20 mg 03/30/21 09:00 Lisinopril 20 Mg Tablet PO QAM [facility] Meloxicam 7.5 mg 03/30/21 08:00 Meloxicam 7.5 Mg Tablet PO DAILY@0800 [facility] Morphine Sulfate 2 mg 03/29/21 18:05 Morphine Sulfate (*Crx) 2 Mg/Ml Inj IV PUSH Q1H PRN Pain Rated 7-10 Naloxone HCl 0.1 mg 03/29/21 18:05 Naloxone Hcl 0.4 Mg/Ml Vial IV PUSH Q2M PRN Opiate Reversal Ondansetron HCl 4 mg 03/29/21 18:05 Ondansetron Inj 4 Mg/2 Ml Vial IV PUSH Q4H PRN Nausea And Vomiting Oxycodone HCl 5 mg 03/29/21 21:00 03/30/21 04:00 Oxycodone Hcl (*Crx) 5 Mg Tab Ir PO 5 mg Q4HR MATTY Administration Oxycodone HCl 5 mg 03/29/21 18:05 Oxycodone Hcl (*Crx) 5 Mg
--- NOTE | 2021-03-30 06:54 | PM.DS ---
DS: Admitting Diagnosis Discharge Date 03/30 Admitting Diagnosis right knee DJD DS: Summary Hospital Course Hospital Course: stable Time Spent with Patient Time attestation: Total time spent providing and/or coordinating discharge services: 75-year-old female underwent right total knee arthroplasty on 03/29. Underwent the procedure without any problems. Postoperatively she has been afebrile vital signs been stable. Wound is dry she has a Mepilex dressing over it. She is weight-bearing as tolerated. She was up in the chair the day of surgery. Her pain is well controlled with oxycodone 5 mg as well as scheduled Tylenol. She is also on meloxicam 7.5 mg daily. She is doing well and is eager to be discharged home. Will have her do therapy on 03/30. If she continues do well plan discharge to home on that date. She was advised to keep leg elevated at home but do exercises regularly. She has recently had her left total knee done and she is very well aware her of the recovery process. She was advise any questions or concerns to call the office otherwise we will see her at her appointed date. She is also going home on a 10 day course of Keflex. She will also call on MiraLax and Senokot for constipation. DS: Data Data Completed and Pending Labs on day of discharge: Labs from last 24 hours 03/30/21 03/30/21 04:22 04:22 WBC 17.5 H RBC 3.60 L Hgb 10.8 L D Hct 33.3 L MCV 92.5 MCH 30.0 MCHC 32.4 RDW 13.2 Plt Count 277 MPV 9.2 Immature Gran % (Auto) 0.3 Neut % (Auto) 87.0 H Lymph % (Auto) 6.8 L Hamblen % (Auto) 5.6 Eos % (Auto) 0.0 Baso % (Auto) 0.3 Lymph # (Auto) 1.19 Hamblen # (Auto) 1.0 H Eos # (Auto) 0.0 Baso # (Auto) 0.1 Abs Immat Gran (auto) 0.06 H Absolute Neuts (auto) 15.2 H Absolute Nucleated RBC 0.0 Nucleated RBC % 0.0 Sodium 134 L Potassium 4.3 Chloride 101 Carbon Dioxide 26 Anion Gap 7 L BUN 16 Creatinine 0.90 Estim Creat Clear Calc Not Reportable Estimated GFR > 60 Glucose 136 H Calcium 8.6 Discharge Plan Discharge Patient Disposition: Home, Self-Care Discharge Instructions: CUAUHTEMOC RAMSEY M.D [facility], [place] [id number] [place] [id number] POST-OPERATIVE DISCHARGE INSTRUCTIONS TOTAL KNEE ARTHROPLASTY 1. When resting, lie on back with leg elevated above hear to minimize swelling. Significant swelling could indicate a blood clot and if this occurs call the office (or go to the ER) to have a venous ultrasound. 2. Do exercise 5 times a day. 3. Do not sit with leg down except for meals. 4. Wound Care: Nursing will give additional dressings at discharge. Patient to change dressing at home 1 week from surgery, then maintain until seen in office. 5. May shower with dressing in place. 6. Follow weight bearing status instructions. 7. Limit sitting in chair with leg down to 30 minutes at a time 4 times a day. Stand Alone Forms: General Discharge Instructions Follow-up/Referrals: Cuauhtemoc Ramsey MD [Physician] - Keep Reg. Scheduled Appt. Discharge Medications: New acetaminophen 500 mg Tablet 1,000 mg PO Q6H Qty: 90 RF: 0 Eliquis 2.5 mg Tablet 2.5 mg PO Q12HR Qty: 27 RF: 0 sennosides-docusate sodium [Senokot-S] 8.6-50 mg Tablet 2 tab-cap PO BID Qty: 60 RF: 0 cephalexin 500 mg Capsule 500 mg PO Q6HR Qty: 44 RF: 0 polyethylene glycol 3350 [Miralax] 17 gram Powder In Packet 17 g PO QAM Qty: 30 RF: 0 oxycodone 5 mg Tablet 5 mg PO Q4HR Qty: 40 RF: 0 Continued atorvastatin 40 mg tablet 40 mg PO QAM RF: 0 lisinopril 20 mg tablet 20 mg PO QAM RF: 0 pantoprazole [Protonix] 40 mg tablet,delayed release (DR/EC) 40 mg PO DAILY RF: 0 ergocalciferol (vitamin D2) 1,250 mcg (50,000 unit) capsule 1,250 mcg PO WEEKLY RF: 0 spironolactone 25 mg PO DAILY RF: 0 amlodipine 5 mg tablet 5 mg PO Q
[2021-03-30 09:17] VITALS: BP 114/62
[2021-03-30] MEDS: SENNA/DOCUSATE SODIUM TABLET 2 TAB PO (09:18)
[2021-03-30] MEDS: SPIRONOLACTONE 25 MG TABLET PO (09:18)
[2021-03-30] MEDS: PANTOPRAZOLE 40 MG TABLET PO (09:18)
[2021-03-30] MEDS: ATORVASTATIN 40 MG TABLET PO (09:18)
[2021-03-30] MEDS: polyethylene glycoL 3350 17 GM POWD.PACK PO (09:19)
[2021-03-30] MEDS: lisinopriL 20 MG TABLET PO (09:19)
[2021-03-30] MEDS: APIXABAN 2.5 MG TABLET PO (09:19)
[2021-03-30] MEDS: MELOXICAM 7.5 MG TABLET PO (09:19)
[2021-03-30] MEDS: amLODIPine BESYLATE 5 MG TABLET PO (09:19)
[2021-03-30 12:00] VITALS: BP 112/60; PULSE 72; RESP 16; TEMP 35.9; O2SAT 97
--- NOTE | 2021-03-30 13:10 | PM.IMCN ---
HPI Data of Consult Consult date: 03/30/21 Requesting Physician: Cuauhtemoc Ramsey MD Primary Care Provider: Dane Mcqueen MD Consult Narrative Narrative: Ana Sanchez is a 75 year old female [facility] Past Medical History Medical History Gastroesophageal reflux disease History of colon cancer (1999) History of uterine cancer Hyperlipidemia Hypertension Osteoarthritis Surgical History Surgical History History of appendectomy History of cholecystectomy History of colon resection (1999) With colostomy and subsequent takedown. History of colonoscopy with polypectomy History of hysterectomy for cancer History of tonsillectomy History of total left knee replacement (12/26/20) Family History Family History Other Cancer Diabetes mellitus Social History Social History Social History: Surrogate decision maker: Pierre Sanchez, spouse. Code status: full code. Smoking packs per day: 1 Smoking cigarettes per day: 20.0 Years smoked: 35 Smoking pack-years: 35.00 Smoking status: Former smoker Second hand tobacco smoke exposure: No Additional smoking assessment comments: QUIT 2013 Alcohol intake: never Substance use: never Substance use type: does not use Additional living arrangements comments: The patient lives with her in [place]. 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 Spiritual care concerns: No Meds Home Medications and Allergies Home Medications Medication Instructions Recorded Confirmed Type atorvastatin 40 mg PO QAM 10/16/19 03/29/21 History ergocalciferol (vitamin D2) 1,250 mcg PO WEEKLY 10/16/19 03/29/21 History lisinopril 20 mg PO QAM 10/16/19 03/29/21 History pantoprazole [Protonix] 40 mg PO DAILY 10/16/19 03/29/21 History amlodipine 5 mg PO QAM 12/26/20 03/29/21 History spironolactone 25 mg PO DAILY 12/26/20 03/29/21 History meloxicam [Mobic] 7.5 mg PO DAILY@0800 #30 tablet 12/27/20 03/23/21 Rx acetaminophen 1,000 mg PO Q6H #90 tablet 03/30/21 Rx apixaban [Eliquis] 2.5 mg PO Q12HR #27 tablet 03/30/21 Rx cephalexin 500 mg PO Q6HR #44 cap 03/30/21 Rx oxycodone 5 mg PO Q4HR #40 tablet 03/30/21 Rx polyethylene glycol 3350 [Miralax] 17 g PO QAM #30 ea 03/30/21 Rx sennosides-docusate sodium 2 tab-cap PO BID #60 tablet 03/30/21 Rx [Senokot-S] Allergies Allergy/AdvReac Type Severity Reaction Status Date / Time sulfamethoxazole Allergy Severe Hives Verified 03/29/21 12:09 [From Bactrim] trimethoprim [From Bactrim] Allergy Severe Hives Verified 03/29/21 12:09 Sulfa (Sulfonamide Allergy Hives Verified 03/29/21 10:42 Antibiotics) Vital Signs Vital Signs - 24 hr 03/29/21 16:44 03/29/21 16:55 03/29/21 17:10 Temperature 98.9 F Pulse Rate 101 H 102 H 102 H Respiratory Rate Blood Pressure 125/58 L 125/53 L 144/63 H Pulse Oximetry 100 100 97 03/29/21 17:25 03/29/21 17:40 03/29/21 17:45 Temperature Pulse Rate 104 H 104 H Respiratory Rate Blood Pressure 140/56 L 121/90 Pulse Oximetry 95 90 95 03/29/21 17:55 03/29/21 18:05 03/29/21 18:20 Temperature 96.6 F L 96.9 F L Pulse Rate 100 105 H 100 Respiratory Rate 18 18 Blood Pressure 137/59 L 130/44 L 129/50 L Pulse Oximetry 97 98 99 03/29/21 18:50 03/29/21 19:50 03/29/21 20:00 Temperature 97.1 F L 97.3 F L 96.9 F L Pulse Rate 98 100 98 Respiratory Rate 18 18 18 Blood Pressure 102/39 L 107/40 L 108/41 L Pulse Oximetry 98 98 99 03/29/21 21:53 03/29/21 23:10 03/29/21 23:36 Temperature 96.7 F L Pulse Rate 98 81 79 Respiratory Rate 18 18 Blood Pressure 126/46 L Pulse Oximetry 99 97 98 03/30/21 03:50 03/30/21 09:17 Temperature 96.5 F L Pulse Rate 70 Respiratory Rate 16 Blood Pressure 108/40 L 114/62 Pulse O
--- NOTE | 2021-03-30 15:11 | PC.NURSE ---
Received report from ANNIE Danielle, who reviewed all discharge instructions and plans with patient. Patient arrived to [facility] 3 awaiting her to pick her up. Patient has no questions or concerns regarding plan of care at this
--- NOTE | 2021-03-30 15:50 | PC.NURSE ---
Patient escorted to vehicle via WC by staff, where she was picked up by her .
== END 2021-03-30 15:50 | disposition home or self-care (01) ==
LOC: ANHSURGERY 18:39 → ANH2MED 18:41 → ANHCPC 03-30 14:43
PROVIDERS: PCP Internal Medicine; Visit Provider Orthopaedic Surgery
PROC: (CPT 27447; principal; 2021-03-29 12:00)
DX: M17.11 Unilateral primary osteoarthritis, right knee (principal); M25.761 Osteophyte, right knee; I10 Essential (primary) hypertension; E78.5 Hyperlipidemia, unspecified; M19.90 Unspecified osteoarthritis, unspecified site; E66.9 Obesity, unspecified; Z68.32 Body mass index [BMI] 32.0-32.9, adult; Z87.891 Personal history of nicotine dependence; K21.9 Gastro-esophageal reflux disease without esophagitis; Z79.01 Long term (current) use of anticoagulants
CPT/HCPCS: 27447; 36415; 73560; 80048; 80307; 82040; 83036; 85025; 86850; 86900; 86901; 87070; 97110; 97116; 97161; 97165; A9270; C1713; C1776; J0171; J0690; J1100; J1170; J1200; J1885; J2270; J2370; J2405; J2704; J2795; J3010; J3370; J7120

== ENCOUNTER 2021-04-03 11:07 | Outpatient (RCR) | payer MEDICARE, SELFPAY ==
--- NOTE | 2021-04-03 11:53 | PTOPEVAL ---
Thank you for referring Ana Sanchez to [facility].? The patient is scheduled to be seen for therapy? __2__x/week for 12 visits. Please review, sign, date and return this plan of care JEFF. I agree with and certify that the following plan of care is medically necessary. Referring Physician Date Admitting Provider: Attending Provider: Cuauhtemoc Ramsey MD Referring Provider: *PT Outpatient Evaluation Start: 04/03/21 11:07 Freq: Status: Active Protocol: Document 04/03/21 11:08 DEANDRE (Rec: 04/03/21 11:52 DEANDRE [id number]) Therapy Assessment Status Assessment Status Assessment Status Evaluation Outpatient Past Medical History Neurological History Hx Neurological Disorders No Significant History Cardiovascular History Hx Hypercholesterolemia Yes Hx Hypertension Yes Respiratory History Hx Bronchitis Yes: WINTER 2019 Hx Pneumonia Yes: WINTER 2019 Gastrointestinal History Hx Appendectomy Yes Hx Bowel Surgery Yes: COLON CANCER Hx Cholecystectomy Yes Hx Gastroesophageal Reflux Disease Yes Hx Hemorrhoids Yes: NO SURGERY Hx Polyps Yes Hx Other Gastrointestinal Disorders Yes: BILE DUCT SURGERY Genitourinary History Hx Urinary Tract Infection Yes: >5YRS AGO Musculoskeletal History Hx Back Pain Yes: WITH ACTIVITY-WEARS BACK BRACE NEEDED Hx Crutches or Walker Use Yes: HAS WALKER FOR POST OP Query Text:If Yes, Enter Crutches, USE Walker, or Both in the Comment Hx Joint Replacement Yes: LT KNEE DECEMBER 2020 Hematological History Hx Blood Transfusions Yes Endocrine History Hx Endocrine Disorders No Significant History HEENT History Hx Cataracts Yes: NO SURGERY Hx Tonsillectomy Yes Hx Dental Problems Yes: MISSING BOTTOM TEETH Hx Other HEENT Disorders Yes: GLASSES Integumentary History Hx Skin Disorders No Significant History Psychosocial History Hx Psychiatric Disorders No Significant History Pain History Has Past Pain Affected Your Daily Life Yes: BILATERAL KNEES/BACK Anesthesia History Hx Post-Op Nausea/Vomiting Yes Other History Hx Cancer Yes: COLON & UTERINE Hx Implanted Device Yes: LT KNEE Evaluation Information Problem Diagnosis s/p right TKA Onset 03/29/21 Subjective Information Pt. reports that she underwent Query Text:As Reported By Patient/ TKA on the right on 03/29/21. Family She reports she developed a bleed after surgery and was told by her doctor to cut her
--- NOTE | 2021-04-25 09:55 | PTOPEVAL ---
Thank you for referring Ana Sanchez to [facility].? The patient is scheduled to be seen for 5 additional therapy sessions. Please review, sign, date and return this plan of care JEFF. I agree with and certify that the following plan of care is medically necessary. Referring Physician Date Admitting Provider: Attending Provider: Cuauhtemoc Ramsey MD Referring Provider: *PT Outpatient Evaluation Start: 04/03/21 11:07 Freq: Status: Active Protocol: Document 04/25/21 09:04 DEANDRE (Rec: 04/25/21 09:54 DEANDRE [email or web address]) Therapy Assessment Status Assessment Status Assessment Status Progress Outpatient Past Medical History Neurological History Hx Neurological Disorders No Significant History Cardiovascular History Hx Hypercholesterolemia Yes Hx Hypertension Yes Respiratory History Hx Bronchitis Yes: WINTER 2019 Hx Pneumonia Yes: WINTER 2019 Gastrointestinal History Hx Appendectomy Yes Hx Bowel Surgery Yes: COLON CANCER Hx Cholecystectomy Yes Hx Gastroesophageal Reflux Disease Yes Hx Hemorrhoids Yes: NO SURGERY Hx Polyps Yes Hx Other Gastrointestinal Disorders Yes: BILE DUCT SURGERY Genitourinary History Hx Urinary Tract Infection Yes: >5YRS AGO Musculoskeletal History Hx Back Pain Yes: WITH ACTIVITY-WEARS BACK BRACE NEEDED Hx Crutches or Walker Use Yes: HAS WALKER FOR POST OP Query Text:If Yes, Enter Crutches, USE Walker, or Both in the Comment Hx Joint Replacement Yes: LT KNEE DECEMBER 2020 Hematological History Hx Blood Transfusions Yes Endocrine History Hx Endocrine Disorders No Significant History HEENT History Hx Cataracts Yes: NO SURGERY Hx Tonsillectomy Yes Hx Dental Problems Yes: MISSING BOTTOM TEETH Hx Other HEENT Disorders Yes: GLASSES Integumentary History Hx Skin Disorders No Significant History Psychosocial History Hx Psychiatric Disorders No Significant History Pain History Has Past Pain Affected Your Daily Life Yes: BILATERAL KNEES/BACK Anesthesia History Hx Post-Op Nausea/Vomiting Yes Other History Hx Cancer Yes: COLON & UTERINE Hx Implanted Device Yes: LT KNEE Evaluation Information Problem Diagnosis s/p right TKA Onset 03/29/21 Subjective Information Pt. reports that she is Query Text:As Reported By Patient/ walking without an AD. She Family reports that she does still have right knee pain that fluctuates with activity. She report
--- NOTE | 2021-05-16 11:46 | PTOPEVAL ---
Thank you for referring Ana Sanchez to [facility].? The patient is scheduled to be seen for therapy? ____x/week for ___ weeks. Please review, sign, date and return this plan of care JEFF. I agree with and certify that the following plan of care is medically necessary. Referring Physician Date Admitting Provider: Attending Provider: Cuauhtemoc Ramsey MD Referring Provider: *PT Outpatient Evaluation Start: 04/03/21 11:07 Freq: Status: Active Protocol: Document 05/16/21 10:58 ACR (Rec: 05/16/21 11:45 ACR [id number]) Therapy Assessment Status Assessment Status Assessment Status Discharge Outpatient Past Medical History Neurological History Hx Neurological Disorders No Significant History Cardiovascular History Hx Hypercholesterolemia Yes Hx Hypertension Yes Respiratory History Hx Bronchitis Yes: WINTER 2019 Hx Pneumonia Yes: WINTER 2019 Gastrointestinal History Hx Appendectomy Yes Hx Bowel Surgery Yes: COLON CANCER Hx Cholecystectomy Yes Hx Gastroesophageal Reflux Disease Yes Hx Hemorrhoids Yes: NO SURGERY Hx Polyps Yes Hx Other Gastrointestinal Disorders Yes: BILE DUCT SURGERY Genitourinary History Hx Urinary Tract Infection Yes: >5YRS AGO Musculoskeletal History Hx Back Pain Yes: WITH ACTIVITY-WEARS BACK BRACE NEEDED Hx Crutches or Walker Use Yes: HAS WALKER FOR POST OP Query Text:If Yes, Enter Crutches, USE Walker, or Both in the Comment Hx Joint Replacement Yes: LT KNEE DECEMBER 2020 Hematological History Hx Blood Transfusions Yes Endocrine History Hx Endocrine Disorders No Significant History HEENT History Hx Cataracts Yes: NO SURGERY Hx Tonsillectomy Yes Hx Dental Problems Yes: MISSING BOTTOM TEETH Hx Other HEENT Disorders Yes: GLASSES Integumentary History Hx Skin Disorders No Significant History Psychosocial History Hx Psychiatric Disorders No Significant History Pain History Has Past Pain Affected Your Daily Life Yes: BILATERAL KNEES/BACK Anesthesia History Hx Post-Op Nausea/Vomiting Yes Other History Hx Cancer Yes: COLON & UTERINE Hx Implanted Device Yes: LT KNEE Evaluation Information Problem Diagnosis R TKA Onset 03/29/21 Subjective Information Patient returned to the MD and Query Text:As Reported By Patient/ he gave her new stretches Family than she has been doing at home and has not been as stiff . She states that walking is a lot easier
--- NOTE | 2021-07-19 08:04 | PCPTNOTE ---
mrs. bedoya has not been to skilled PT services in several months. as of this date, all progress towards goals will be taken from her most recent evaluation/note.
== END 2021-05-23 23:59 | disposition home or self-care (01) ==
LOC: CHSPT 11:07
PROVIDERS: Visit Provider Orthopaedic Surgery
DX: Z96.651 Presence of right artificial knee joint (principal)
CPT/HCPCS: 97016; 97110; 97161; 97530

== ENCOUNTER 2021-08-24 08:18 | Outpatient (CLI) | payer MEDICARE, SELFPAY ==
[2021-08-24 08:31] LABS: Basophils Absolute Auto 0.04 K/mm3 (0.00-0.10); Basophils Percent Auto 0.6 % (0.0-1.0); Eosinophils Percent Auto 1.5 % (1.0-6.0); Hematocrit 41.6 % (35.0-42.0); Hemoglobin 13.3 g/dL (11.7-13.8); Immature Granulocyte Absolute 0.02 K/mm3 (0.00-0.00); Immature Granulocyte Percent A 0.3 % (0.0-0.0); Lymphocytes Absolute Auto 2.17 K/mm3 (1.10-4.50); Lymphocytes Percent Auto 31.6 % (18.0-42.0); Mean Corpuscular Hemoglobin 28.9 pg (27.0-31.0); Mean Corpuscular Volume 90.2 fL (78.0-102.0); Mean Platelet Volume 8.9 fl (9.2-11.8); Monocytes Percent Auto 8.7 % (2.0-11.0); Neutrophils Absolute Auto 3.9 K/mm3 (1.7-7.2); Neutrophils Percent Auto 57.3 % (50.0-70.0); Platelet Count Result 303 K/mm3 (150-420); Red Blood Count 4.61 M/mm3 (4.20-5.40); Red Cell Distribution Width 13.7 % (11.6-14.4); White Blood Count 6.9 K/mm3 (4.8-10.8)
[2021-08-24 08:36] LABS: Add Urine Microscopic? NO; Appearance Urine Clear (Clear); Bilirubin Urine Negative (Negative); Blood Urine Negative (Negative); Color Urine Yellow (Yellow); Glucose Urine UA Negative (Negative); Ketones Urine Negative (Negative); Leukocyte Esterase Ur Negative LEU/UL (Negative); Nitrate Urine Negative (Negative); Protein Urine Negative (Negative); Specific Grav Ur >= 1.030 (1.010-1.020); Urobilinogen Urine 0.2 mg/dL (0.2-1.0); pH Urine 5.5 (5.0-8.0)
[2021-08-24 09:15] LABS: Alanine Aminotransferase 22 U/L (14-59); Alkaline Phosphatase 83 U/L (46-116); Anion Gap 11 mmol/L (8-16); Aspartate Amino Transferase 18 U/L (15-37); Bilirubin,Total 0.5 mg/dL (0.00-1.00); Blood Urea Nitrogen 19 mg/dL (7-18); Calcium 9.3 mg/dL (8.5-10.1); Carbon Dioxide 27 mmol/L (21-32); Chloride 101 mmol/L (98-108); Cholesterol 211 mg/dL (0-200); Creatine Kinase 44 U/L (26-192); Estimated Glomerular Filt Rate > 60; Glucose 91 mg/dL (70-99); HDL Direct 52 mg/dL (40-60); LDL Cholesterol Calculated 133 mg/dL (<130); Osmolality Calculated 290 mOsm/kg (285-295); Potassium 4.4 mmol/L (3.5-5.1); Sodium 139 mmol/L (136-145); Total Protein 7.2 g/dL (6.4-8.2); Triglycerides 132 mg/dL (0-150)
[2021-08-26 19:06] LABS: Vitamin D 25 Hydroxy 36 ng/mL (30-100)
== END 2021-08-24 08:19 | disposition home or self-care (01) ==
LOC: CHSLAB 08:20
PROVIDERS: PCP Internal Medicine; Visit Provider Internal Medicine
DX: E78.2 Mixed hyperlipidemia (principal); I10 Essential (primary) hypertension; E55.9 Vitamin D deficiency, unspecified
CPT/HCPCS: 36415; 80053; 80061; 81003; 82306; 82550; 85025

== ENCOUNTER 2021-10-03 08:10 | Outpatient (CLI) | payer MEDICARE, SELFPAY ==
[2021-10-03] MEDS: ZOLEDRONIC ACID 5 MG/100 ML 100 ML 400 MG IVPB (08:20)
[2021-10-03 08:24] VITALS: BMI 32.3
[2021-10-03 08:30] VITALS: BP 132/70; PULSE 72; RESP 14; TEMP 36.4; O2SAT 97
--- NOTE | 2021-10-03 08:32 | PC.NURSE ---
Patient here for yearly IV Reclast infusion. Education given. No concerns voiced. Has had this past 4 years without problems. IV Reclast administered. SEE MAR. Tolerated well. Safe exit of hospital.
== END 2021-10-03 08:11 | disposition home or self-care (01) ==
LOC: CHSTREATRM 08:12
PROVIDERS: PCP Internal Medicine; Visit Provider Internal Medicine
DX: M81.0 Age-related osteoporosis without current pathological fracture (principal)
CPT/HCPCS: 96374; J3489

== ENCOUNTER 2021-11-30 01:12 | Day surgery (SDC) | payer MEDICARE, SELFPAY ==
[2021-11-16 15:40] VITALS: BMI 35.6
--- NOTE | 2021-11-29 18:55 | WPDANESEPPF ---
Anes - Initial Pre Proc Eval Procedure: Operation Date: 11/30/21 07:30 Proposed Procedures p Esophagogastroduodenoscopy - Ismael Sauceda DO Date/Time: 11/29/21 18:55 Surgeon: Ismael Sauceda DO Pre Op Diagnosis: melena, epigastric discomfort Patient Data Age: 76 Gender: F Height: 1.37 m Weight: 67 kg Allergies Allergy/AdvReac Type Severity Reaction Status Date / Time sulfamethoxazole Allergy Severe Hives Verified 11/30/21 06:16 [From Bactrim] trimethoprim [From Bactrim] Allergy Severe Hives Verified 11/30/21 06:16 aspirin Allergy Anaphylaxis Verified 11/30/21 06:16 Sulfa (Sulfonamide Allergy Hives Verified 11/30/21 06:16 Antibiotics) Home Medications Medication Instructions Recorded Confirmed Type atorvastatin 40 mg tablet 40 mg PO QAM 10/16/19 11/30/21 History ergocalciferol (vitamin D2) 1,250 1,250 mcg PO WEEKLY 10/16/19 11/30/21 History mcg (50,000 unit) capsule lisinopril 20 mg tablet 20 mg PO QAM 10/16/19 11/30/21 History pantoprazole 40 mg tablet,delayed 40 mg PO BID 10/16/19 11/30/21 History release (Protonix) amlodipine 5 mg tablet 5 mg PO QAM 12/26/20 11/30/21 History spironolactone 25 mg PO DAILY 12/26/20 11/30/21 History Patient hx anesthesia problems: none Family hx anesthesia problems: none Results Review: All pre-operative results and documents have been reviewed as part of the pre-operative evaluation. [facility] Past Medical History Medical History Gastroesophageal reflux disease History of colon cancer (1999) History of uterine cancer Hyperlipidemia Hypertension Osteoarthritis Surgical History Surgical History History of appendectomy History of cholecystectomy History of colon resection (1999) With colostomy and subsequent takedown. History of colonoscopy with polypectomy History of hysterectomy for cancer History of tonsillectomy History of total left knee replacement (12/26/20) Family History Family History Other Cancer Diabetes mellitus Social History Social History Social History: Surrogate decision maker: Pierre Sanchez, spouse. Code status: full code. Smoking packs per day: 1 Smoking cigarettes per day: 20.0 Years smoked: 25 Smoking pack-years: 25.00 Smoking status: Former smoker Second hand tobacco smoke exposure: No Additional smoking assessment comments: QUIT 2013 Alcohol intake: never Substance use: never Substance use type: does not use Living arrangements: with family Additional living arrangements comments: The patient lives with her in [place]. 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 Spiritual care concerns: No Anes - Eval Final PreProcedure Day of Procedure 11/29/21 18:55 Patient weight: obese Heart: regular rate and rhythm Lungs: clear to auscultation Airway: Mallampati scale class II Neurological: alert and oriented Last oral intake: >/= 8 hours ASA classification: III Emergent: no Anesthetic plan: proceed Anesthesia type and monitoring: general GIVS and standard monitoring Results Review: All pre-operative results and documents have been reviewed as part of the pre-operative evaluation. Informed Consent: The patient's anesthetic plan and its attendant risks and benefits were discussed with the patient/family/POA. Questions were solicited and answers provided to the satisfaction of the patient/family/POA.
[2021-11-30 06:17] VITALS: BP 135/67; PULSE 76; RESP 16; TEMP 36.6; O2SAT 99
[2021-11-30] MEDS: LACTATED RINGERS 1,000 ML 150 ML IV CONT (06:21)
--- NOTE | 2021-11-30 07:30 | PM.IMHP ---
H&P: HPI History of Present Illness Date/Time: 11/30/21 07:30 Chief Complaint: Melena, epigastric pain Narrative: this is a 76-year-old presents for EGD. She has a recent history of melena that lasted about 2 weeks. She does not recall anything that she ate that could have caused this but she was taking some Pepto-Bismol. She does have a history of acid reflux. The melena has resolved. But she states the as a get occasional epigastric pain. Review of Systems Review of Systems: All systems reviewed & are unremarkable except as noted in HPI and below Constitutional: Constitutional: Denies chills, Denies fever(s), Denies headache(s) and Denies weight loss Eyes: Eyes: Denies change in vision ENT: Denies dizziness, Denies headache(s), Denies neck mass and Denies throat swelling Cardiovascular: Cardiovascular: Denies chest pain, Denies lightheadedness and Denies dyspnea Respiratory: Respiratory: Denies cough, Denies dyspnea and Denies wheezing Gastrointestinal: Gastrointestinal: Reports as per HPI, Reports abdominal pain ( Epigastric), Reports melena, Denies change in bowel habits, Denies nausea and Denies vomiting Genitourinary: Genitourinary: Denies hematuria and Denies dysuria Musculoskeletal: Musculoskeletal: Reports as per HPI Integumentary/Breasts: Skin/Breast: Reports as per HPI Neurologic: Denies dizziness and Denies headache(s) Allergic/Immunologic: Allergic/Immunologic: Denies throat swelling and Denies wheezing PMFSH Past Medical History Medical History Gastroesophageal reflux disease History of colon cancer (1999) History of uterine cancer Hyperlipidemia Hypertension Osteoarthritis Surgical History Surgical History History of appendectomy History of cholecystectomy History of colon resection (1999) With colostomy and subsequent takedown. History of colonoscopy with polypectomy History of hysterectomy for cancer History of tonsillectomy History of total left knee replacement (12/26/20) Family History Family History Other Cancer Diabetes mellitus Social History Social History Social History: Surrogate decision maker: Pierre Sanchez, spouse. Code status: full code. Smoking packs per day: 1 Smoking cigarettes per day: 20.0 Years smoked: 25 Smoking pack-years: 25.00 Smoking status: Former smoker Second hand tobacco smoke exposure: No Additional smoking assessment comments: QUIT 2013 Alcohol intake: never Substance use: never Substance use type: does not use Living arrangements: with family Additional living arrangements comments: The patient lives with her in [place]. 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 Spiritual care concerns: No Meds Home Medications and Allergies Home Medications Medication Instructions Recorded Confirmed Type atorvastatin 40 mg tablet 40 mg PO QAM 10/16/19 11/30/21 History ergocalciferol (vitamin D2) 1,250 1,250 mcg PO WEEKLY 10/16/19 11/30/21 History mcg (50,000 unit) capsule lisinopril 20 mg tablet 20 mg PO QAM 10/16/19 11/30/21 History pantoprazole 40 mg tablet,delayed 40 mg PO BID 10/16/19 11/30/21 History release (Protonix) amlodipine 5 mg tablet 5 mg PO QAM 12/26/20 11/30/21 History spironolactone 25 mg PO DAILY 12/26/20 11/30/21 History Allergies Allergy/AdvReac Type Severity Reaction Status Date / Time sulfamethoxazole Allergy Severe Hives Verified 11/30/21 06:16 [From Bactrim] trimethoprim [From Bactrim] Allergy Severe Hives Verified 11/30/21 06:16 aspirin Allergy Anaphylaxis Verified 11/30/21 06:16 Sulfa (Sulfonamide Allergy Hives Verified 11/30/21 06:16 Antibiotics) Vital Signs Vital Signs - 24 hr 11/30/21 06:17 Temperature 36.6 C Pulse R
[2021-11-30 07:40] VITALS: BP 76/34; PULSE 81; RESP 27; O2SAT 98
[2021-11-30 07:50] VITALS: BP 106/66; PULSE 78; RESP 25; O2SAT 98
[2021-11-30 08:05] VITALS: BP 105/50; PULSE 68; RESP 18; O2SAT 99
== END 2021-11-30 08:10 | disposition home or self-care (01) ==
PROVIDERS: PCP Internal Medicine; Visit Provider Surgery
PROC: 0DJ08ZZ Inspection of Upper Intestinal Tract, Via Natural or Artificial Opening Endoscopic (ICD-10-PCS; CPT 43235; principal; 2021-11-30 07:30)
DX: K92.1 Melena (principal); R10.13 Epigastric pain; K44.9 Diaphragmatic hernia without obstruction or gangrene; K29.60 Other gastritis without bleeding; I10 Essential (primary) hypertension; M19.90 Unspecified osteoarthritis, unspecified site; K21.9 Gastro-esophageal reflux disease without esophagitis; E78.5 Hyperlipidemia, unspecified; Z90.49 Acquired absence of other specified parts of digestive tract; Z87.891 Personal history of nicotine dependence; E66.9 Obesity, unspecified; Z68.34 Body mass index [BMI] 34.0-34.9, adult
CPT/HCPCS: 43235; J2704; J7120

== ENCOUNTER 2022-03-06 07:58 | Outpatient (CLI) | payer MEDICARE, SELFPAY ==
[2022-03-06 08:19] LABS: Basophils Absolute Auto 0.06 K/mm3 (0.00-0.10); Basophils Percent Auto 0.6 % (0.0-1.0); Eosinophils Absolute Auto 0.15 K/mm3 (0.02-0.50); Eosinophils Percent Auto 1.6 % (1.0-6.0); Hematocrit 39.1 % (35.0-42.0); Hemoglobin 12.6 g/dL (11.7-13.8); Immature Granulocyte Absolute 0.03 K/mm3 (0.00-0.00); Immature Granulocyte Percent A 0.3 % (0.0-0.0); Lymphocytes Absolute Auto 2.35 K/mm3 (1.10-4.50); Lymphocytes Percent Auto 25.2 % (18.0-42.0); Mean Corpuscular HGB Conc 32.2 g/dL (32.0-36.0); Mean Corpuscular Hemoglobin 28.6 pg (27.0-31.0); Mean Corpuscular Volume 88.7 fL (78.0-102.0); Mean Platelet Volume 9.2 fl (9.2-11.8); Monocytes Absolute Auto 0.62 K/mm3 (0.10-0.90); Monocytes Percent Auto 6.7 % (2.0-11.0); Neutrophils Absolute Auto 6.1 K/mm3 (1.7-7.2); Neutrophils Percent Auto 65.6 % (50.0-70.0); Platelet Count Result 297 K/mm3 (150-420); Red Blood Count 4.41 M/mm3 (4.20-5.40); White Blood Count 9.3 K/mm3 (4.8-10.8)
[2022-03-06 08:24] LABS: Appearance Urine Clear (Clear); Bilirubin Urine Negative (Negative); Blood Urine Negative (Negative); Glucose Urine UA Negative (Negative); Ketones Urine Negative (Negative); Leukocyte Esterase Ur Negative (Negative); Nitrate Urine Negative (Negative); Protein Urine Negative (Negative); Specific Grav Ur <= 1.005 (1.010-1.020); Urobilinogen Urine 0.2 mg/dL (0.2-1.0)
[2022-03-06 08:51] LABS: Add Urine Microscopic? NO; Alanine Aminotransferase 22 U/L (14-59); Alkaline Phosphatase 102 U/L (46-116); Anion Gap 6 mmol/L (8-16); Aspartate Amino Transferase 21 U/L (15-37); Bilirubin,Total 0.5 mg/dL (0.00-1.00); Blood Urea Nitrogen 16 mg/dL (7-18); Calcium 9.1 mg/dL (8.5-10.1); Carbon Dioxide 30 mmol/L (21-32); Chloride 105 mmol/L (98-108); Cholesterol 187 mg/dL (0-200); Color Urine Light Yellow (Yellow); Creatine Kinase 74 U/L (26-192); Estimated Glomerular Filt Rate > 60; Glucose 102 mg/dL (70-99); HDL Direct 48 mg/dL (40-60); LDL Cholesterol Calculated 118 mg/dL (<130); Osmolality Calculated 293 mOsm/kg (285-295); Potassium 4.3 mmol/L (3.5-5.1); Sodium 141 mmol/L (136-145); Total Protein 7.1 g/dL (6.4-8.2); Triglycerides 103 mg/dL (0-150)
[2022-03-09 21:40] LABS: Vitamin D 25 Hydroxy 69 ng/mL (30-100)
== END 2022-03-06 07:59 | disposition home or self-care (01) ==
LOC: CHSLAB 07:59
PROVIDERS: PCP Internal Medicine; Visit Provider Internal Medicine
DX: E78.2 Mixed hyperlipidemia (principal); I10 Essential (primary) hypertension; M81.0 Age-related osteoporosis without current pathological fracture; R31.21 Asymptomatic microscopic hematuria
CPT/HCPCS: 36415; 80053; 80061; 81003; 82306; 82550; 85025

== ENCOUNTER 2022-03-26 10:40 | Outpatient (CLI) | payer MEDICARE, SELFPAY ==
--- NOTE | ~2022-03-26 | XR_ITS ---
EXAMINATION: XR chest 2V DATE: 03/26/2022 11:00 INDICATION: Fever and cough. Chest pain. TECHNIQUE: Frontal and lateral views of the chest were obtained. COMPARISON: Chest 2 views 07/27/2019, CT abdomen and pelvis 04/08/2020 FINDINGS: There are patchy airspace opacities in all right lung zones with a peripheral predominance. No pleural effusion or pneumothorax. The heart size is normal. Surgical clips in the right upper robert drant are likely from cholecystectomy. IMPRESSION: 1. Patchy airspace opacities in all right lung zones with a peripheral predominance, consistent with pneumonia. Reviewed, dictated and finalized at location A. IMPRESSION: 1. Patchy airspace opacities in all right lung zones with a peripheral predomin ance, consistent with pneumonia.
[2022-03-26 10:54] LABS: Hematocrit 38.5 % (35.0-42.0); Hemoglobin 12.7 g/dL (11.7-13.8); Mean Corpuscular Hemoglobin 28.7 pg (27.0-31.0); Mean Corpuscular Volume 86.9 fL (78.0-102.0); Mean Platelet Volume 8.9 fl (9.2-11.8); Platelet Count Result 370 K/mm3 (150-420); Red Blood Count 4.43 M/mm3 (4.20-5.40); Red Cell Distribution Width 13.9 % (11.6-14.4)
[2022-03-26 10:57] LABS: White Blood Count 23.7 K/mm3 (4.8-10.8)
[2022-03-26 11:07] LABS: Alanine Aminotransferase 11 U/L (14-59); Albumin Level 3.5 g/dL (3.4-5.0); Alkaline Phosphatase 119 U/L (46-116); Anion Gap 9 mmol/L (8-16); Aspartate Amino Transferase 17 U/L (15-37); Bilirubin,Total 0.7 mg/dL (0.00-1.00); Blood Urea Nitrogen 17 mg/dL (7-18); Calcium 9.1 mg/dL (8.5-10.1); Carbon Dioxide 28 mmol/L (21-32); Chloride 97 mmol/L (98-108); Estimated Glomerular Filt Rate 50; Glucose 145 mg/dL (70-99); Osmolality Calculated 282 mOsm/kg (285-295); Potassium 3.6 mmol/L (3.5-5.1); Sodium 134 mmol/L (136-145); Total Protein 8.4 g/dL (6.4-8.2)
[2022-03-26 11:12] LABS: Band Neutrophils Percent 3 % (0-6); Basophils Percent Manual 0 % (0-1); Eosinophils Percent Manual 0 % (1-6); Lymphocytes Absolute Manual 1.65 K/mm3 (1.1-4.5); Lymphocytes Percent Manual 7 % (18-44); Monocytes Absolute Manual 1.18 K/mm3 (0.1-0.90); Monocytes Percent Manual 5 % (3-9); Neutrophils Absolute Manual 20.85 K/mm3 (1.7-7.2); Neutrophils Percent Manual 85 % (46-73); Total Cells Counted 100
[2022-03-26 11:13] LABS: Platelet Estimate Adequate (Adequate)
== END 2022-03-26 10:41 | disposition home or self-care (01) ==
LOC: CHSLAB 10:44
PROVIDERS: PCP Internal Medicine; Visit Provider Internal Medicine
DX: R50.9 Fever, unspecified (principal); R05.9 Cough, unspecified
CPT/HCPCS: 36415; 71046; 80053; 85025

== ENCOUNTER 2022-03-28 11:17 | Outpatient (CLI) | payer MEDICARE, SELFPAY ==
--- NOTE | ~2022-03-28 | XR_ITS ---
XR chest 2V 03/28/2022 11:36 Indication: Pneumonia. Shortness of breath. Fever. Procedure: 2 view chest Comparison: 03/26/2022 and 07/27/2019 Findings: There is right upper and middle lobe airspace disease, compatible with pneumonia. There is severe spondylosis at the thoracolumbar junction with accentuated kyphosis. Heart size is normal. Lef t lung is clear. Impression: 1: Right upper and middle lobe airspace disease, compatible with pneumonia. Reviewed, dictated and finalized at location B. Impression: 1: Right upper and middle lobe airspace disease, compatible with pneumonia.
[2022-03-28 11:29] LABS: Basophils Absolute Auto 0.06 K/mm3 (0.00-0.10); Basophils Percent Auto 0.3 % (0.0-1.0); Eosinophils Absolute Auto 0.08 K/mm3 (0.02-0.50); Eosinophils Percent Auto 0.4 % (1.0-6.0); Hematocrit 37.8 % (35.0-42.0); Hemoglobin 12.3 g/dL (11.7-13.8); Immature Granulocyte Absolute 0.54 K/mm3 (0.00-0.00); Immature Granulocyte Percent A 2.8 % (0.0-0.0); Lymphocytes Absolute Auto 2.11 K/mm3 (1.10-4.50); Mean Corpuscular HGB Conc 32.5 g/dL (32.0-36.0); Mean Corpuscular Hemoglobin 28.3 pg (27.0-31.0); Mean Corpuscular Volume 86.9 fL (78.0-102.0); Mean Platelet Volume 8.7 fl (9.2-11.8); Monocytes Absolute Auto 1.13 K/mm3 (0.10-0.90); Monocytes Percent Auto 5.9 % (2.0-11.0); Neutrophils Absolute Auto 15.3 K/mm3 (1.7-7.2); Neutrophils Percent Auto 79.6 % (50.0-70.0); Platelet Count Result 404 K/mm3 (150-420); Red Blood Count 4.35 M/mm3 (4.20-5.40); Red Cell Distribution Width 13.8 % (11.6-14.4); White Blood Count 19.3 K/mm3 (4.8-10.8)
== END 2022-03-28 11:18 | disposition home or self-care (01) ==
LOC: CHSLAB 11:19
PROVIDERS: PCP Internal Medicine; Visit Provider Internal Medicine
DX: J18.9 Pneumonia, unspecified organism (principal)
CPT/HCPCS: 36415; 71046; 85025

== ENCOUNTER 2022-03-30 08:01 | Outpatient (CLI) | payer MEDICARE, SELFPAY ==
[2022-03-30 08:14] LABS: Basophils Absolute Auto 0.05 K/mm3 (0.00-0.10); Basophils Percent Auto 0.3 % (0.0-1.0); Eosinophils Absolute Auto 0.35 K/mm3 (0.02-0.50); Eosinophils Percent Auto 2.3 % (1.0-6.0); Hematocrit 38.9 % (35.0-42.0); Hemoglobin 12.7 g/dL (11.7-13.8); Immature Granulocyte Absolute 0.44 K/mm3 (0.00-0.00); Immature Granulocyte Percent A 2.9 % (0.0-0.0); Lymphocytes Absolute Auto 2.43 K/mm3 (1.10-4.50); Lymphocytes Percent Auto 16.2 % (18.0-42.0); Mean Corpuscular HGB Conc 32.6 g/dL (32.0-36.0); Mean Corpuscular Hemoglobin 28.6 pg (27.0-31.0); Mean Corpuscular Volume 87.6 fL (78.0-102.0); Mean Platelet Volume 8.4 fl (9.2-11.8); Monocytes Absolute Auto 0.89 K/mm3 (0.10-0.90); Monocytes Percent Auto 5.9 % (2.0-11.0); Neutrophils Absolute Auto 10.8 K/mm3 (1.7-7.2); Neutrophils Percent Auto 72.4 % (50.0-70.0); Platelet Count Result 476 K/mm3 (150-420); Red Blood Count 4.44 M/mm3 (4.20-5.40); Red Cell Distribution Width 14.1 % (11.6-14.4)
[2022-03-30 08:59] LABS: Alanine Aminotransferase 83 U/L (14-59); Albumin Level 3.1 g/dL (3.4-5.0); Alkaline Phosphatase 116 U/L (46-116); Anion Gap 7 mmol/L (8-16); Aspartate Amino Transferase 43 U/L (15-37); Bilirubin,Total 0.3 mg/dL (0.00-1.00); Blood Urea Nitrogen 14 mg/dL (7-18); Calcium 9.2 mg/dL (8.5-10.1); Carbon Dioxide 27 mmol/L (21-32); Chloride 102 mmol/L (98-108); Estimated Glomerular Filt Rate 59; Glucose 112 mg/dL (70-99); Osmolality Calculated 283 mOsm/kg (285-295); Potassium 4.2 mmol/L (3.5-5.1); Sodium 136 mmol/L (136-145); Total Protein 7.1 g/dL (6.4-8.2)
== END 2022-03-30 08:02 | disposition home or self-care (01) ==
LOC: CHSLAB 08:02
PROVIDERS: PCP Internal Medicine; Visit Provider Internal Medicine
DX: J18.9 Pneumonia, unspecified organism (principal)
CPT/HCPCS: 36415; 80053; 85025

== ENCOUNTER 2022-03-31 11:53 | Outpatient (CLI) | payer MEDICARE, SELFPAY ==
[2022-03-31] MEDS: cefTRIAXone 1 GM, LIDOCAINE HCL 1% LOCAL INJ 2.1 ML IM (12:20)
== END 2022-03-31 11:54 | disposition home or self-care (01) ==
PROVIDERS: PCP Internal Medicine; Visit Provider Internal Medicine
DX: J18.9 Pneumonia, unspecified organism (principal)
CPT/HCPCS: 96372; J0696

== ENCOUNTER 2022-04-01 09:42 | Outpatient (CLI) | payer MEDICARE, SELFPAY | END 2022-04-01 09:43 | disposition home or self-care (01) | PROVIDERS: PCP Internal Medicine; Visit Provider Internal Medicine | DX: J18.9 Pneumonia, unspecified organism (principal) | CPT/HCPCS: 96372; J0696 ==

== ENCOUNTER 2022-04-02 07:55 | Outpatient (CLI) | payer MEDICARE, SELFPAY ==
--- NOTE | ~2022-04-02 | XR_ITS ---
EXAMINATION: XR chest 2V DATE: 04/02/2022 11:00 INDICATION: 2 weeks of cough and congestion TECHNIQUE: frontal and lateral views of the chest were obtained. COMPARISON: Chest radiograph dated 03/28/2022, 03/26/2022 and 07/27/2019 FINDINGS: There is been some interval improvement decrease in the focal airspace opacities along the lateral ri ght mid to lower lung zone. No new airspace opacities, ulnar edema, pleural effusion or pneumothorax. The cardiomediastinal silhouette is normal. Cholecystectomy clips in right upper quadrant. Thoracolu mbar kyphosis with chronic mild anterior wedging of a few vertebral bodies at the thoracolumbar junct ion. Moderate lower cervical and moderate to severe upper lumbar spondylosis. IMPRESSION: 1. There is been some decrease in airspace opacities along the lateral right mid to lower lung zone c onsistent with improving pneumonia. Reviewed, dictated and finalized at location B. IMPRESSION: 1. There is been some decrease in airspace opacities along the lateral right mi d to lower lung zone consistent with improving pneumonia.
[2022-04-02 08:06] LABS: Basophils Absolute Auto 0.02 K/mm3 (0.00-0.10); Basophils Percent Auto 0.1 % (0.0-1.0); Eosinophils Absolute Auto 0.17 K/mm3 (0.02-0.50); Eosinophils Percent Auto 1.2 % (1.0-6.0); Hematocrit 37.4 % (35.0-42.0); Hemoglobin 12.3 g/dL (11.7-13.8); Immature Granulocyte Absolute 0.17 K/mm3 (0.00-0.00); Immature Granulocyte Percent A 1.2 % (0.0-0.0); Lymphocytes Absolute Auto 1.18 K/mm3 (1.10-4.50); Lymphocytes Percent Auto 8.1 % (18.0-42.0); Mean Corpuscular HGB Conc 32.9 g/dL (32.0-36.0); Mean Corpuscular Volume 88.2 fL (78.0-102.0); Mean Platelet Volume 8.1 fl (9.2-11.8); Monocytes Absolute Auto 0.65 K/mm3 (0.10-0.90); Monocytes Percent Auto 4.4 % (2.0-11.0); Neutrophils Absolute Auto 12.5 K/mm3 (1.7-7.2); Platelet Count Result 366 K/mm3 (150-420); Red Blood Count 4.24 M/mm3 (4.20-5.40); Red Cell Distribution Width 14.3 % (11.6-14.4); White Blood Count 14.7 K/mm3 (4.8-10.8)
[2022-04-02 09:58] LABS: Alanine Aminotransferase 39 U/L (14-59); Albumin Level 3.2 g/dL (3.4-5.0); Alkaline Phosphatase 117 U/L (46-116); Anion Gap 10 mmol/L (8-16); Aspartate Amino Transferase 21 U/L (15-37); Bilirubin,Total 0.3 mg/dL (0.00-1.00); Blood Urea Nitrogen 11 mg/dL (7-18); Calcium 8.7 mg/dL (8.5-10.1); Carbon Dioxide 28 mmol/L (21-32); Chloride 99 mmol/L (98-108); Estimated Glomerular Filt Rate 46; Glucose 151 mg/dL (70-99); Osmolality Calculated 286 mOsm/kg (285-295); Potassium 4.3 mmol/L (3.5-5.1); Sodium 137 mmol/L (136-145); Total Protein 6.9 g/dL (6.4-8.2)
== END 2022-04-02 07:56 | disposition home or self-care (01) ==
PROVIDERS: PCP Internal Medicine; Visit Provider Internal Medicine
DX: J18.9 Pneumonia, unspecified organism (principal)
CPT/HCPCS: 36415; 71046; 80053; 85025

== ENCOUNTER 2022-04-03 11:12 | Inpatient (IN) | payer MEDICARE, SELFPAY ==
[2022-04-03] VITALS (26 sets, daily range): BP systolic 95–145; BP diastolic 53–75; PULSE 81–116; RESP 16–29; TEMP 36.8–37.9; O2SAT 90–97; BMI 30.7
--- NOTE | ~2022-04-03 | XR_ITS ---
EXAMINATION: XR chest 2V DATE: 04/03/2022 13:20 INDICATION: Pneumonia. TECHNIQUE: Frontal and lateral views of the chest were obtained. COMPARISON: Chest 2 views 04/02/2022, CT abdomen and pelvis 04/08/2020 FINDINGS: The patient is rotated to her right. There are airspace opacities in lateral right mid and lower lung zones. No pleural effusion or pneumothorax. The heart size is normal. Surgical clips in th e right upper quadrant are likely from cholecystectomy. IMPRESSION: 1. Stable airspace opacities in lateral right mid and lower lung zones, consistent with pneumonia. Reviewed, dictated and finalized at location A. IMPRESSION: 1. Stable airspace opacities in lateral right mid and lower lung zones, consist ent with pneumonia.
--- NOTE | 2022-04-03 11:50 | ECG_ITS ---
Measurements Intervals [place] Rate: 95 P: 52 KS: 143 QRS: -16 QRSD: 78 T: 19 QT: 326 QTc: 412 Interpretive Statements SINUS RHYTHM POOR R WAVE PROGRESSION, ANTERIOR LEADS BORDERLINE T WAVE ABNORMALITY- INFERIOR LEADS BASELINE ARTIFACT- I, II, III, AVR, AVL, AVF, V1, V6 BORDERLINE ECG COMPARED TO ECG 12/15/2020 13:01:04 NO SIGNIFICANT CHANGES Electronically Signed On 04-03-2022 13:02:16 CDT by Ramakrihsna Palmer D.O.
--- NOTE | 2022-04-03 11:52 | ED.GENADULT ---
HPI - General Adult General Chief complaint: Upper Respiratory Infection Stated complaint: PNEUMONIA DR MENDEZ SENT OVER Time Seen by Provider: 04/03/22 11:50 History of Present Illness HPI narrative: DR MENDEZ PCP CALLED ME AND STATED HE WAS SENDING OVER HIS PATIENT WITH MULTI LOBE PNEUMONIA THAT HE HAS BEEN TREATING FOR A WEEK. SHE HAS RIGHT UPPER LOBE AND RIGHT MIDDLE LOBE PNEUMONIA HE INITIALLY STARTED HER ON AUGMENTIN AND A ZITHROMAX. SHE STARTED HAVING DIARRHEA SO HE SWITCHED THAT TO ROCEPHIN IM INJECTIONS SHE HAS HAD 6 DOSES HER CHEST X-RAY HAS IMPROVED A LITTLE BIT AND [place] WAS [id number] BUT SHE CONTINUES TO SPIKE FEVERS. TODAY HE ADDED HER ON LEVAQUIN BUT SHE BROKE OUT IN A RASH WITH THIS. HE SENT HER TO TO THE ED FOR FAILURE OF OUTPATIENT MANAGEMENT AND THINKS SHE NEEDS TO BE ADMITTED TO THE HOSPITAL ON VANCOMYCIN OR ZOSYN. XRAY YESTERDAY: EXAMINATION: XR chest 2V DATE: 04/02/2022 11:00 INDICATION: 2 weeks of cough and congestion TECHNIQUE: frontal and lateral views of the chest were obtained. COMPARISON: Chest radiograph dated 03/28/2022, 03/26/2022 and 07/27/2019 FINDINGS: There is been some interval improvement decrease in the focal airspace opacities along the lateral right mid to lower lung zone. No new airspace opacities, ulnar edema, pleural effusion or pneumothorax. The cardiomediastinal silhouette is normal. Cholecystectomy clips in right upper quadrant. Thoracolumbar kyphosis with chronic mild anterior wedging of a few vertebral bodies at the thoracolumbar junction. Moderate lower cervical and moderate to severe upper lumbar spondylosis. IMPRESSION: 1. There is been some decrease in airspace opacities along the lateral right mid to lower lung zone consistent with improving pneumonia. XR chest 2V 03/28/2022 11:36 Indication: Pneumonia. Shortness of breath. Fever. Procedure: 2 view chest Comparison: 03/26/2022 and 07/27/2019 Findings: There is right upper and middle lobe airspace disease, compatible with pneumonia. There is severe spondylosis at the thoracolumbar junction with accentuated kyphosis. Heart size is normal. Left lung is clear. Impression: 1: Right upper and middle lobe airspace disease, compatible with pneumonia. EXAMINATION: XR chest 2V DATE: 03/26/2022 11:00 INDICATION: Fever and cough. Chest pain. TECHNIQUE: Frontal and lateral views of the chest were obtained. COMPARISON: Chest 2 views 07/27/2019, CT abdomen and pelvis 04/08/2020 FINDINGS: There are patchy airspace opacities in all right lung zones with a peripheral predominance. No pleural effusion or pneumothorax. The heart size is normal. Surgical clips in the right upper quadrant are likely from cholecystectomy. IMPRESSION: 1. Patchy airspace opacities in all right lung zones with a peripheral predominance, consistent with pneumonia. Related Data Home Medications Medication Instructions Recorded Confirmed atorvastatin 40 mg tablet 40 mg PO QAM 10/16/19 04/03/22 ergocalciferol (vitamin D2) 1,250 1,250 mcg PO WEEKLY 10/16/19 04/03/22 mcg (50,000 unit) capsule lisinopril 20 mg tablet 20 mg PO QAM 10/16/19 04/03/22 pantoprazole 40 mg tablet,delayed 40 mg PO BID 10/16/19 04/03/22 release (Protonix) amlodipine 5 mg tablet 5 mg PO QAM 12/26/20 04/03/22 albuterol sulfate 90 mcg/actuation 2 puff inhalation PRN PRN Wheezing 04/03/22 04/03/22 aerosol inhaler Allergies Allergy/AdvReac Type Severity Reaction Status Date / Time sulfamethoxazole Allergy Severe Hives Verified 04/03/22 11:31 [From Bactrim] trimethoprim [From Bactrim] Allergy Severe Hives Verified 04/03/22 11:31 aspirin Allergy Anaphylaxis Verified 04/03/22 11:31 Sulfa (Sulfonamide Allergy Hives Verified 04/03/22 11:31 Antibiotics) Review of Systems Review of Systems: All systems reviewed & are unremarkable except as noted in HPI and below Constitutional: Constitutional: Reports no additional constitutional complaints, Reports
[2022-04-03 12:18] LABS: Basophils Absolute Auto 0.03 K/mm3 (0.00-0.10); Basophils Percent Auto 0.2 % (0.0-1.0); Hemoglobin 12.6 g/dL (11.7-13.8); Immature Granulocyte Absolute 0.19 K/mm3 (0.00-0.00); Immature Granulocyte Percent A 1.1 % (0.0-0.0); Lymphocytes Absolute Auto 0.99 K/mm3 (1.10-4.50); Lymphocytes Percent Auto 5.9 % (18.0-42.0); Mean Corpuscular HGB Conc 32.3 g/dL (32.0-36.0); Mean Corpuscular Hemoglobin 28.4 pg (27.0-31.0); Mean Platelet Volume 8.3 fl (9.2-11.8); Monocytes Absolute Auto 0.55 K/mm3 (0.10-0.90); Monocytes Percent Auto 3.3 % (2.0-11.0); Neutrophils Percent Auto 89.5 % (50.0-70.0); Platelet Count Result 334 K/mm3 (150-420); Red Blood Count 4.43 M/mm3 (4.20-5.40); Red Cell Distribution Width 14.6 % (11.6-14.4); White Blood Count 16.8 K/mm3 (4.8-10.8)
[2022-04-03] MEDS: ONDANSETRON INJ 4 MG/2 ML VIAL IV PUSH ×2 (12:20→16:11)
[2022-04-03 12:35] LABS: Alanine Aminotransferase 31 U/L (14-59); Albumin Level 3.2 g/dL (3.4-5.0); Alkaline Phosphatase 103 U/L (46-116); Anion Gap 10 mmol/L (8-16); Aspartate Amino Transferase 25 U/L (15-37); Bilirubin,Total 0.3 mg/dL (0.00-1.00); Blood Urea Nitrogen 13 mg/dL (7-18); Carbon Dioxide 28 mmol/L (21-32); Chloride 96 mmol/L (98-108); Estimated Glomerular Filt Rate 43; Glucose 122 mg/dL (70-99); Osmolality Calculated 279 mOsm/kg (285-295); Sodium 134 mmol/L (136-145); Troponin I 6.3 ng/L (0.00-60.4)
[2022-04-03 12:55] LABS: Influenza A QL RT-PCR Positive (Negative); Influenza B QL RT-PCR Negative (Negative); SARS-CoV-2 RNA PCR Negative (Negative)
[2022-04-03] MEDS: ACETAMINOPHEN 325 MG TABLET 650 MG PO (13:03)
[2022-04-03] MEDS: OSELTAMIVIR PHOSPHATE 75 MG CAPSULE PO (13:48)
--- NOTE | 2022-04-03 14:00 | PC.NURSE ---
PT IS AGREEABLE TO ADMISSION AT THIS TIME. PT TO BE ADMITTED TO ROOM 205. DENIES ANY NEEDS OR COMPLAINTS. BELONGINGS LIST COMPLETED.
--- NOTE | 2022-04-03 14:00 | PC.NURSE ---
1300 PT HAS IV VANCOMYCIN INFUSING ORDERED WITHOUT DIFFICULTY. PT IS AWAITING COVID RESULTS FOR XRAY. PT DENIES ANY NEEDS OR COMPLAINTS AT THIS TIME. WILL CONTINUE TO MONITOR.
--- NOTE | 2022-04-03 14:02 | PC.NURSE ---
1210 PT IS AWAITING RESULTS AT THIS TIME. PT HAS RED RASH NOTED TO ENTIRE BODY. LOOSE COUGH NOTED. DENIES ANY NEEDS OR COMPLAINTS. WILL CONTINUE TO MONITOR.
--- NOTE | 2022-04-03 14:54 | PC.NURSE ---
Pt admitted to room 205 as OBS pt. A/O x4, ambulated from WC to bed with out difficulty. RN reviewed the visitor policy hours 10A to 8p. Reviewed the call system with pt. Pt placed on Tele. VSS. Asked pt to please call the nurse before getting out of bed. Pt is agreeable.
--- NOTE | 2022-04-03 20:07 | PC.NURSE ---
Pt given an incentive spirometer. This RN inquired if the pt has knowledge on technique to which the pt verbalized understanding and that she has prior experience. This RN also notified the pt that if she feels sob there is a prn albuterol inhaler available. Pt stated that she uses one at home and is aware of how to use an inhaler and would not need a spacer. Pt also educated community education specialist light use and how to turn on the night light. Pt educated on I/O and verbalized understanding. Call light w/in reach, side railsx2, bed in lowest position for pt safety.
[2022-04-04] MEDS: ALBUTEROL SULFATE (*SP) INHALER 2 PUFF INHALATION (01:33)
--- NOTE | 2022-04-04 02:52 | PC.NURSE ---
Pt stated that her cough had somewhat gotten better after using the prn Proair. This RN communicated when the next available dose was. This RN spoke w/Lizeth Connelly maintenance electrician nurse about possibly having benzonatate ordered prn for pt's cough. Pt verbalized appreciation and is bed w/call light w/in reach.
--- NOTE | 2022-04-04 03:05 | PC.NURSE ---
This RN messaged Eliza Cameron NP for a possible prn oder of benzonatate for pt's cough. The cough is still present and making it difficult for Ana to sleep. Awaiting for a reply. Charge nurse notified that message was sent.
[2022-04-04 03:09] VITALS: PULSE 98
[2022-04-04] MEDS: ONDANSETRON INJ 4 MG/2 ML VIAL IV PUSH (03:46)
--- NOTE | 2022-04-04 03:50 | PC.NURSE ---
Pt c/o of having some nausea. Pt has not produced any emesis, but is dry heaving. Prn Zofran IVP given. Saltine crackers brought to pt and this RN encouraged pt to have something in her stomach due to not eating much of her dinner. RN also instructed pt to maintain drinking fluids as to not get dehydrated, and pt was instructed to sip water in order to not overwhelm the stomach. Pt verbalized understanding and was not very receptive to eating crackers, but open to the idea. Pt had a bm and per pt stool was soft and formed. Pt is sitting at bedside w/call light w/in reach and bed in lowest position for pt safety.
[2022-04-04 05:09] LABS: Basophils Absolute Auto 0.03 K/mm3 (0.00-0.10); Basophils Percent Auto 0.2 % (0.0-1.0); Eosinophils Percent Auto 0.8 % (1.0-6.0); Hematocrit 34.6 % (35.0-42.0); Hemoglobin 11.4 g/dL (11.7-13.8); Immature Granulocyte Absolute 0.12 K/mm3 (0.00-0.00); Immature Granulocyte Percent A 0.9 % (0.0-0.0); Lymphocytes Absolute Auto 1.14 K/mm3 (1.10-4.50); Mean Corpuscular HGB Conc 32.9 g/dL (32.0-36.0); Mean Corpuscular Hemoglobin 28.9 pg (27.0-31.0); Mean Corpuscular Volume 87.8 fL (78.0-102.0); Mean Platelet Volume 8.5 fl (9.2-11.8); Monocytes Absolute Auto 0.49 K/mm3 (0.10-0.90); Monocytes Percent Auto 3.9 % (2.0-11.0); Neutrophils Absolute Auto 10.8 K/mm3 (1.7-7.2); Neutrophils Percent Auto 85.2 % (50.0-70.0); Platelet Count Result 310 K/mm3 (150-420); Red Blood Count 3.94 M/mm3 (4.20-5.40); Red Cell Distribution Width 14.5 % (11.6-14.4); White Blood Count 12.7 K/mm3 (4.8-10.8)
[2022-04-04 05:22] LABS: Alanine Aminotransferase 25 U/L (14-59); Albumin Level 2.7 g/dL (3.4-5.0); Alkaline Phosphatase 83 U/L (46-116); Anion Gap 6 mmol/L (8-16); Aspartate Amino Transferase 22 U/L (15-37); Bilirubin,Total 0.2 mg/dL (0.00-1.00); Blood Urea Nitrogen 16 mg/dL (7-18); Calcium 8.3 mg/dL (8.5-10.1); Carbon Dioxide 29 mmol/L (21-32); Chloride 98 mmol/L (98-108); Estimated Glomerular Filt Rate 48; Glucose 112 mg/dL (70-99); Osmolality Calculated 278 mOsm/kg (285-295); Potassium 3.7 mmol/L (3.5-5.1); Sodium 133 mmol/L (136-145); Total Protein 6.5 g/dL (6.4-8.2)
[2022-04-04 08:00] VITALS: BP 106/51; PULSE 89; RESP 16; TEMP 36.9; O2SAT 93
[2022-04-04] MEDS: amLODIPine BESYLATE 5 MG TABLET PO (09:18)
[2022-04-04] MEDS: lisinopriL 20 MG TABLET PO (09:18)
[2022-04-04] MEDS: ATORVASTATIN 40 MG TABLET PO (09:19)
[2022-04-04] MEDS: ENOXAPARIN 30 MG/0.3 ML SYRINGE SUB-Q (09:19)
[2022-04-04] MEDS: BENZONATATE 100 MG CAPSULE 200 MG PO ×2 (09:33→16:48)
[2022-04-04] MEDS: OSELTAMIVIR PHOSPHATE 30 MG CAPSULE PO ×2 (09:33→20:32)
--- NOTE | 2022-04-04 10:15 | PM.IMHP ---
H&P: HPI History of Present Illness Date/Time: 04/04/22 10:15 Chief Complaint: Pneumonia Narrative: This is a 76-year-old female that presented to her primary care physician office approximately 1 week ago with complaints of fever and cough. Patient has a past medical history of GERD, lipidemia, hypertension, osteoarthritis and history of colon and uterine cancer patient was found to have pneumonia at that time and she was given azithromycin and Augmentin with no improvement and she developed diarrhea with nausea and vomiting. She then was placed on Rocephin IM patient did receive 6 doses her chest x-ray did indicate at that time that she had a little improvement with her pneumonia. He later switched her antibiotic to Levaquin which caused her to have a rash. Patient is being admitted today for failure outpatient treatment. Chest x-ray indicate improving pneumonia WBC 16.8, hemoglobin 12.2, hematocrit 39, platelets 334, sodium 134, potassium 4.0, BUN 13, creatinine 1.21 glucose 122 total bilirubin 0.3 AST 25 ALT 31 troponin 6.3 influenza A positive. Vital signs 106/51, 89, 16, 98.5, 93% on room air. Patient only complaint is that she has uncontrolled cough and she did not sleep well overnight. The patient denies SOB, CP, palpitation, extremity numbness, lightheadedness, dizziness, constipation, diarrhea, chills, or fever. Review of Systems Review of Systems: A 14 organ system Review of Systems was performed and pertinent positives included in the HPI, otherwise remaining ROS is negative. [facility] Past Medical History Medical History Gastroesophageal reflux disease History of colon cancer (1999) History of uterine cancer Hyperlipidemia Hypertension Osteoarthritis Surgical History Surgical History History of appendectomy History of cholecystectomy History of colon resection (1999) With colostomy and subsequent takedown. History of colonoscopy with polypectomy History of hysterectomy for cancer History of tonsillectomy History of total left knee replacement (12/26/20) Family History Family History Other Cancer Diabetes mellitus Social History Social History (Updated 04/03/22 @ 15:04 by Danielle Boss RN) Social History: Surrogate decision maker: Pierre Sanchez, spouse. Code status: full code. Smoking packs per day: 1 Smoking cigarettes per day: 20.0 Years smoked: 20 Smoking pack-years: 20.00 Smoking status: Former smoker Tobacco type: cigarettes Second hand tobacco smoke exposure: No Additional smoking assessment comments: QUIT 2013 Alcohol intake: never Substance use: never Substance use type: does not use Has the Lack of Transportation Kept You From Medical Appointments or From Getting Medications?: No Within the Past 12 Months, Were You Worried Whether Your Food Would Run Out Before You Got Money to Buy More?: Never True What is Your Housing Situation Today?: I Have Housing Are You Worried That in the Next 2 Months, You May Not Have Your Own Housing to Live In?: No Do You Have Trouble Paying Your Heating Or Electricity Bill?: No Do You Have Trouble Paying For Medicines?: No Are You Currently Unemployed and Looking for Work?: No Highest Level of Education Completed: High School Diploma/GED Do You Have Trouble With Childcare or the Care of a Family Member?: No Additional living arrangements comments: The patient lives with her in [place]. 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 Gender identity (if verbalized by the patient): Female Sexual Orientation (if Verbalized by the Patient): Straight or Heterosexual Spiritual care concerns: No Agree to blood products: Yes Meds Home Medications and Allergies Home Medications Medication Instructions Recorded Confirmed Type atorva
--- NOTE | 2022-04-04 10:44 | PC.NURSE ---
Pt transitioned to In PT status at 1033.
[2022-04-04 15:45] VITALS: BP 100/48; PULSE 81; RESP 18; TEMP 36.7; O2SAT 92
[2022-04-04] MEDS: MELATONIN 5 MG TABLET PO (20:32)
[2022-04-05] VITALS: BP 93/46; PULSE 68; RESP 16; TEMP 36.6; O2SAT 93
[2022-04-05 05:12] LABS: Hematocrit 34.2 % (35.0-42.0); Hemoglobin 11.1 g/dL (11.7-13.8); Mean Corpuscular HGB Conc 32.5 g/dL (32.0-36.0); Mean Corpuscular Hemoglobin 28.4 pg (27.0-31.0); Mean Corpuscular Volume 87.5 fL (78.0-102.0); Mean Platelet Volume 8.5 fl (9.2-11.8); Platelet Count Result 327 K/mm3 (150-420); Red Blood Count 3.91 M/mm3 (4.20-5.40); Red Cell Distribution Width 14.6 % (11.6-14.4); White Blood Count 8.4 K/mm3 (4.8-10.8)
[2022-04-05 05:25] LABS: Alanine Aminotransferase 19 U/L (14-59); Albumin Level 2.7 g/dL (3.4-5.0); Alkaline Phosphatase 74 U/L (46-116); Anion Gap 6 mmol/L (8-16); Aspartate Amino Transferase 19 U/L (15-37); Bilirubin,Total 0.3 mg/dL (0.00-1.00); Blood Urea Nitrogen 17 mg/dL (7-18); Calcium 8.6 mg/dL (8.5-10.1); Carbon Dioxide 29 mmol/L (21-32); Chloride 100 mmol/L (98-108); Estimated Glomerular Filt Rate 43; Glucose 97 mg/dL (70-99); Magnesium 1.7 mg/dL (1.8-2.4); Osmolality Calculated 281 mOsm/kg (285-295); Potassium 3.4 mmol/L (3.5-5.1); Sodium 135 mmol/L (136-145); Total Protein 6.6 g/dL (6.4-8.2)
[2022-04-05 07:42] VITALS: BP 97/62; PULSE 81; RESP 16; TEMP 36.7; O2SAT 98
[2022-04-05] MEDS: ENOXAPARIN 30 MG/0.3 ML SYRINGE SUB-Q (08:30)
[2022-04-05] MEDS: BENZONATATE 100 MG CAPSULE 200 MG PO (08:31)
[2022-04-05] MEDS: OSELTAMIVIR PHOSPHATE 30 MG CAPSULE PO (08:31)
[2022-04-05] MEDS: ATORVASTATIN 40 MG TABLET PO (08:32)
[2022-04-05] MEDS: lisinopriL 20 MG TABLET PO (08:32)
[2022-04-05] MEDS: amLODIPine BESYLATE 5 MG TABLET PO (08:32)
--- NOTE | 2022-04-05 08:38 | PM.DS ---
DS: Admitting Diagnosis Discharge Date 04/05/2022 Admitting Diagnosis pneumonia and influenza A DS: Discharge Diagnosis Discharge Diagnosis (1) Pneumonia: Code(s): J18.9 - Pneumonia, unspecified organism Status: Acute Assessment and Plan: cxr indicate impoved PNA WBC 26.8>12.7>8.4 vanco started will start cefepime BC preliminary without growth (2) Influenza A: Code(s): J10.1 - Influenza due to other identified influenza virus with other respiratory manifestations Status: Acute Assessment and Plan: continue tamiflu (3) Hyperlipidemia: Code(s): E78.5 - Hyperlipidemia, unspecified Status: Chronic Assessment and Plan: cont statins (4) Gastroesophageal reflux disease: Code(s): K21.9 - Gastro-esophageal reflux disease without esophagitis Status: Acute Assessment and Plan: Continue pantoprazole (5) Osteoarthritis: Code(s): M19.90 - Unspecified osteoarthritis, unspecified site Status: Acute Assessment and Plan: contniue pain medication (6) Hypertension: Code(s): I10 - Essential (primary) hypertension Status: Acute Assessment and Plan: soft Continue lisinopril vs as ordered will adjust medications as needed DS: Summary Hospital Course Reason for hospitalization: shortness of breath dyspnea Hospital Course: This is a 76-year-old female that presented to her primary care physician office approximately 1 week ago with complaints of fever and cough.? Patient has a past medical history of GERD, lipidemia, hypertension, osteoarthritis and history of colon and uterine cancer patient was found to have pneumonia at that time and she was given azithromycin and Augmentin with no improvement and she developed diarrhea with nausea and vomiting.? She then was placed on Rocephin IM patient did receive 6 doses her chest x-ray did indicate at that time that she had a little improvement with her pneumonia.? He later switched her antibiotic to Levaquin which caused her to have a rash.? Patient was admitted today for failed outpatient treatment. patient condition has improved IV antibiotic therapy she will discharge today. Discharge instructions reviewed with patient, as well as provided in writing per nursing staff. The instructions also include specific and strict return/GO TO THE ER as well as f/u information. All questions have been answered, and the patient and/or family deny any further questions with discharge and discharge plan. Time Spent with Patient Time attestation: Total time spent providing and/or coordinating discharge services: Exam Narrative: GENERAL: This is a well-nourished, well-developed patient, in no apparent distress. HEAD: normocephalic, atraumatic. EYES: PERRL. Sclera clear/white. Vision is grossly intact. EARS: External ears normal, auditory canals clear and without drainage, TMs normal without perforation. Hearing grossly intact. NOSE: External nose normal with no obvious nasal discharge, nares without redness, no rhinorrhea. THROAT: Mucous membranes moist, posterior pharynx clear. NECK: Neck supple, non-tender without lymphadenopathy, masses or thyromegaly. CARDIOVASCULAR: Regular rate and rhythm without murmurs, gallops, or rubs. RESPIRATORY: Clear to auscultation. Breath sounds equal bilaterally. No wheezes, rales, or rhonchi. GASTROINTESTINAL: Abdomen soft, non-tender, nondistended. Bowel sounds are active. No hepato-splenomegaly, or palpable masses. No guarding. SKIN: warm, intact with no suspicious lesions or rash, good texture and turgor. NEURO: awake, alert, and oriented to person, place and time. There were no obvious focal neurologic abnormalities. EXTREMITIES: Normal range of motion. No edema. No calf tenderness. DS: Data Data Completed and Pending Labs on day of discharge: Labs from last 24 hours 04/05/22 04/05/22 04:58 04:58 WBC 8.4 RBC 3.91 L Hgb
[2022-04-05] MEDS: POTASSIUM CHLORIDE 20 MEQ TABLET 40 MEQ PO (08:45)
--- NOTE | 2022-04-05 11:25 | PC.NURSE ---
Discharge instructions given to patient and IV removed in anticipation of discharge.
--- NOTE | 2022-04-05 12:30 | PC.NURSE ---
Patient discharged from unit in w/c, accompanied by nurse and patient's . Patient voiced understanding of discharge instructions. Patient left hospital property in private vehicle.
--- NOTE | 2022-04-10 13:09 | PC.NURSE ---
Pt states she received and understood her discharge instructions. Pt has no other comments.
== END 2022-04-05 12:30 | disposition home or self-care (01) | DRG 195 ==
LOC: CHSED 13:41 → CHS2ND 13:50
PROVIDERS: Nurse Practitioner; Nurse Practitioner Family; Admitting Provider Internal Medicine; Emergency Provider Emergency Medicine; PCP Internal Medicine; Visit Provider Internal Medicine
DX: J10.00 Influenza due to other identified influenza virus with unspecified type of pneumonia (principal); I10 Essential (primary) hypertension; K21.9 Gastro-esophageal reflux disease without esophagitis; E78.5 Hyperlipidemia, unspecified; M19.90 Unspecified osteoarthritis, unspecified site; Z96.652 Presence of left artificial knee joint; Z85.038 Personal history of other malignant neoplasm of large intestine; Z85.42 Personal history of malignant neoplasm of other parts of uterus; Z90.49 Acquired absence of other specified parts of digestive tract; Z90.710 Acquired absence of both cervix and uterus; Z87.891 Personal history of nicotine dependence
CPT/HCPCS: 36415; 71046; 80053; 83735; 84484; 85025; 85027; 87040; 87502; 93005; 96365; 96372; 96375; 96376; 99285; A9270; G0378; J0692; J1650; J2405; J3370; U0003; U0005

== ENCOUNTER 2022-04-16 07:59 | Outpatient (CLI) | payer MEDICARE, SELFPAY ==
--- NOTE | ~2022-04-16 | MM_ITS ---
EXAMINATION: MM screening mary[place] BI w shin HISTORY: Screening TECHNIQUE: Craniocaudal and mediolateral oblique 3-D tomosynthesis images were obtained and synthetic 2-D images were generated. CAD analysis was submitted and interpreted. COMPARISON: Comparison to multiple prior studies sequentially, with oldest reviewed study dated 03/04. BREAST PARENCHYMAL COMPOSITION: There are scattered areas of fibroglandular density. FINDINGS: There is no evidence of suspicious mass, calcification, or architectural distortion to sugg est malignancy in either breast. There has been no suspicious interval change. IMPRESSION: 1. No mammographic evidence of malignancy. 2. Recommend routine screening mammography in one year. BI-RADS Category 1: Negative Reviewed, dictated and finalized at location A. RIALS PLANNING MANAGER
== END 2022-04-16 08:00 | disposition home or self-care (01) ==
LOC: CHSIMG 08:00
PROVIDERS: PCP Internal Medicine; Visit Provider Internal Medicine
DX: Z12.31 Encounter for screening mammogram for malignant neoplasm of breast (principal)
CPT/HCPCS: 77063; 77067

== ENCOUNTER 2022-05-01 09:29 | Outpatient (CLI) | payer MEDICARE, SELFPAY ==
[2022-05-01] MEDS: ZOLEDRONIC ACID 5 MG/100 ML 100 ML 400 MG IVPB (09:45)
[2022-05-01 09:51] VITALS: BP 135/64; PULSE 78; RESP 16; TEMP 36.6; O2SAT 96; BMI 20.8
--- NOTE | 2022-05-01 09:53 | PC.NURSE ---
Patient here for yearly IV Reclast infusion. Reports no problems in the past. Education given. No concerns. IV Reclast administered. SEE MAR. Tolerated well. Safe exit of hospital.
== END 2022-05-01 09:30 | disposition home or self-care (01) ==
LOC: CHSTREATRM 09:33
PROVIDERS: PCP Internal Medicine; Visit Provider Internal Medicine
DX: M81.0 Age-related osteoporosis without current pathological fracture (principal)
CPT/HCPCS: 96374; J3489

== ENCOUNTER 2022-05-11 15:06 | Outpatient (CLI) | payer MEDICARE, SELFPAY ==
--- NOTE | ~2022-05-11 | XR_ITS ---
EXAMINATION: XR chest 2V 05/11/2022 15:31 INDICATION: Follow-up pneumonia PROCEDURE: 2 view chest COMPARISON: Comparison to multiple prior studies sequentially, with oldest reviewed study dated 03/04. FINDINGS: The lungs are clear. The cardiomediastinal silhouette is within normal limits. There are no pleural effusions. There is no pneumothorax suspected. There is moderate lower thoracic and uppe r lumbar spondylosis with accentuated kyphosis. IMPRESSION: 1: NO ACUTE CARDIOPULMONARY DISEASE. Reviewed, dictated and finalized at location A. LE WASHING MACHINE OPERATOR
[2022-05-11 15:30] LABS: Basophils Absolute Auto 0.06 K/mm3 (0.00-0.10); Basophils Percent Auto 0.8 % (0.0-1.0); Eosinophils Absolute Auto 0.14 K/mm3 (0.02-0.50); Eosinophils Percent Auto 1.9 % (1.0-6.0); Hematocrit 37.9 % (35.0-42.0); Hemoglobin 12.1 g/dL (11.7-13.8); Immature Granulocyte Absolute 0.01 K/mm3 (0.00-0.00); Immature Granulocyte Percent A 0.1 % (0.0-0.0); Lymphocytes Absolute Auto 2.46 K/mm3 (1.10-4.50); Lymphocytes Percent Auto 32.5 % (18.0-42.0); Mean Corpuscular HGB Conc 31.9 g/dL (32.0-36.0); Mean Corpuscular Hemoglobin 28.9 pg (27.0-31.0); Mean Corpuscular Volume 90.7 fL (78.0-102.0); Monocytes Absolute Auto 0.53 K/mm3 (0.10-0.90); Neutrophils Absolute Auto 4.4 K/mm3 (1.7-7.2); Neutrophils Percent Auto 57.7 % (50.0-70.0); Platelet Count Result 337 K/mm3 (150-420); Red Blood Count 4.18 M/mm3 (4.20-5.40); Red Cell Distribution Width 14.6 % (11.6-14.4); White Blood Count 7.6 K/mm3 (4.8-10.8)
[2022-05-11 16:38] LABS: Alanine Aminotransferase 13 U/L (14-59); Albumin Level 4.1 g/dL (3.4-5.0); Alkaline Phosphatase 97 U/L (46-116); Anion Gap 7 mmol/L (8-16); Aspartate Amino Transferase 13 U/L (15-37); Bilirubin,Total 0.5 mg/dL (0.00-1.00); Blood Urea Nitrogen 18 mg/dL (7-18); Calcium 8.9 mg/dL (8.5-10.1); Carbon Dioxide 29 mmol/L (21-32); Chloride 105 mmol/L (98-108); Estimated Glomerular Filt Rate 59; Glucose 90 mg/dL (70-99); Osmolality Calculated 293 mOsm/kg (285-295); Potassium 4.3 mmol/L (3.5-5.1); Sodium 141 mmol/L (136-145); Total Protein 7.5 g/dL (6.4-8.2)
== END 2022-05-11 15:07 | disposition home or self-care (01) ==
LOC: CHSLAB 15:08
PROVIDERS: PCP Internal Medicine; Visit Provider Internal Medicine
DX: Z09 Encounter for follow-up examination after completed treatment for conditions other than malignant neoplasm (principal); J18.9 Pneumonia, unspecified organism
CPT/HCPCS: 36415; 71046; 80053; 85025

== ENCOUNTER 2022-09-04 08:58 | Outpatient (CLI) | payer MEDICARE, SELFPAY ==
[2022-09-04 09:17] LABS: Basophils Absolute Auto 0.07 K/mm3 (0.00-0.10); Basophils Percent Auto 0.7 % (0.0-1.0); Eosinophils Absolute Auto 0.14 K/mm3 (0.02-0.50); Eosinophils Percent Auto 1.5 % (1.0-6.0); Hematocrit 39.7 % (35.0-42.0); Hemoglobin 13.2 g/dL (11.7-13.8); Immature Granulocyte Absolute 0.04 K/mm3 (0.00-0.00); Immature Granulocyte Percent A 0.4 % (0.0-0.0); Lymphocytes Absolute Auto 2.93 K/mm3 (1.10-4.50); Lymphocytes Percent Auto 30.8 % (18.0-42.0); Mean Corpuscular HGB Conc 33.2 g/dL (32.0-36.0); Mean Corpuscular Hemoglobin 29.3 pg (27.0-31.0); Mean Corpuscular Volume 88.2 fL (78.0-102.0); Mean Platelet Volume 8.7 fl (9.2-11.8); Monocytes Absolute Auto 0.67 K/mm3 (0.10-0.90); Neutrophils Absolute Auto 5.7 K/mm3 (1.7-7.2); Neutrophils Percent Auto 59.6 % (50.0-70.0); Platelet Count Result 321 K/mm3 (150-420); Red Cell Distribution Width 13.8 % (11.6-14.4); White Blood Count 9.5 K/mm3 (4.8-10.8)
[2022-09-04 09:20] LABS: Appearance Urine Clear (Clear); Bilirubin Urine Negative (Negative); Blood Urine Trace-Intact (Negative); Color Urine Light Yellow (Yellow); Glucose Urine UA Negative (Negative); Ketones Urine Negative (Negative); Leukocyte Esterase Ur Trace (Negative); Nitrate Urine Negative (Negative); Protein Urine Negative (Negative); Urobilinogen Urine 0.2 mg/dL (0.2-1.0); pH Urine 6.5 (5.0-8.0)
[2022-09-04 09:25] LABS: Add Urine Microscopic? YES; Bacteria Urine None seen /hpf; RBC Urine 0-2 /hpf (0-2); Squamous Epithelial Cell Urine Rare /hpf (Few); WBC Urine 0-3 /hpf (0-3)
[2022-09-04 09:37] LABS: Hemoglobin A1C 5.8 % (<5.7)
[2022-09-04 09:55] LABS: Alanine Aminotransferase 19 U/L (14-59); Albumin Level 3.9 g/dL (3.4-5.0); Alkaline Phosphatase 85 U/L (46-116); Anion Gap 8 mmol/L (8-16); Aspartate Amino Transferase 15 U/L (15-37); Bilirubin,Total 0.6 mg/dL (0.00-1.00); Blood Urea Nitrogen 17 mg/dL (7-18); Calcium 9.4 mg/dL (8.5-10.1); Carbon Dioxide 29 mmol/L (21-32); Chloride 103 mmol/L (98-108); Cholesterol 228 mg/dL (0-200); Estimated Glomerular Filt Rate > 60; Glucose 108 mg/dL (70-99); HDL Direct 55 mg/dL (40-60); LDL Cholesterol Calculated 156 mg/dL (<130); Osmolality Calculated 292 mOsm/kg (285-295); Potassium 4.3 mmol/L (3.5-5.1); Sodium 140 mmol/L (136-145); Total Protein 7.4 g/dL (6.4-8.2); Triglycerides 87 mg/dL (0-150)
== END 2022-09-04 08:59 | disposition home or self-care (01) ==
LOC: CHSLAB 08:59
PROVIDERS: PCP Internal Medicine; Visit Provider Internal Medicine
DX: I10 Essential (primary) hypertension (principal); E78.2 Mixed hyperlipidemia; R73.01 Impaired fasting glucose; R31.21 Asymptomatic microscopic hematuria
CPT/HCPCS: 36415; 80053; 80061; 81001; 83036; 85025

== ENCOUNTER 2022-10-25 08:59 | Outpatient (CLI) | payer MEDICARE, SELFPAY ==
--- NOTE | ~2022-10-25 | DEXA_ITS ---
Bone Density Report Name: CORTES CARTAGENA Age: 77 Sex: Female Ethnicity: White Date of : 1945 Indication: postmenopausal; screening for osteoporosis; parental hip fracture; cancer; hysterectomy; secondary osteoporosis; Referring Provider: Dane Mcqueen Study: Bone densitometry was performed. Exam Date: October 25, 2022 Accession number: [id number] Bone Density: Region BMD T-score Z-score Classification AP Spine(L1-L4) 0.903 -1.3 1.2 Osteopenia Femoral Neck (Left) 0.513 -3.0 -0.9 Osteoporosis Total Hip (Left) 0.672 -2.2 -0.4 Osteopenia Femoral Neck (Right) 0.566 -2.5 -0.4 Osteoporosis Total Hip (Right) 0.732 -1.7 0.1 Osteopenia Femoral Neck Mean 0.540 -2.8 -0.7 Osteoporosis Total Hip Mean 0.702 -2.0 -0.1 Osteopenia World Health Organization criteria for BMD impression classify patients as: Normal (T-score at or above -1.0), Osteopenia (T-score between -1.0 and -2.5), or Osteoporosis (T-score at or below -2.5). Clinical Information Provided by Patient: Parent has had a hip fracture Has secondary osteoporosis Has used the following medications: Reclast (i.e. zoledronate), Vitamin D, Calcium Has the following medical conditions: Cancer, Hysterectomy Patient maximum height was 60 Menopause Age: 41 No regular weight bearing exercise Drinks caffeinated beverages Onset of menses at age 13 Number of children 5 Impression: The patient has osteoporosis, based on the Left Femoral Neck T-score. The patient has risk factors, including: parental hip fracture. Discussion: INCREASED RISK OF FRACTURE. BONE DENSITY IS UNDESIRABLY LOW AT ONE OR MORE SKELETAL SITES, CONSISTENT WITH POSTMENOPAUSAL OSTEOPOROSIS. This patient's lowest T-score meets the World Health Organization's (WHO) criteria for osteoporosis at one or more sites (T-score -2.5 or below). In untreated patients, the risk of osteoporotic fracture increases approximately two-fold for each 1.0 SD decrease in T-score. Low bone density is not the only risk factor for fracture; also consider factors such as patient's age, frailty or poor health, risk of falling, risk of injury, previous osteoporotic fracture, family history of osteoporosis, cigarette smoking, low body weight, etc. Not everyone with low bone mineral density has osteoporosis; osteomalacia and other metabolic bone disorders should also be considered. Patients who have osteoporosis should be evaluated for specific diseases and conditions (secondary causes) that may cause or contribute to bone loss. The [place] Association of Clinical Endocrinologists (AACE) and National Osteoporosis Foundation (NOF) recommend pharmacologic intervention for all postmenopausal women whose T-score is in this range. The patient should follow a healthful lifestyle (good nutrition with adequate calcium and vitamin D, and appropriate weight-bearing exercise). Follow-Up: Consider a repeat BMD and Vertebral Fracture Assessment
== END 2022-10-25 09:00 | disposition home or self-care (01) ==
LOC: CHSIMG 09:00
PROVIDERS: PCP Internal Medicine; Visit Provider Internal Medicine
DX: M81.0 Age-related osteoporosis without current pathological fracture (principal); M85.89 Other specified disorders of bone density and structure, multiple sites
CPT/HCPCS: 77080

== ENCOUNTER 2022-12-11 09:47 | Outpatient (CLI) | payer MEDICARE, SELFPAY ==
[2022-12-11 11:10] LABS: Alanine Aminotransferase 18 U/L (14-59); Albumin Level 4.1 g/dL (3.4-5.0); Alkaline Phosphatase 100 U/L (46-116); Anion Gap 9 mmol/L (8-16); Aspartate Amino Transferase 15 U/L (15-37); Bilirubin,Total 0.6 mg/dL (0.00-1.00); Blood Urea Nitrogen 18 mg/dL (7-18); Calcium 9.2 mg/dL (8.5-10.1); Carbon Dioxide 27 mmol/L (21-32); Chloride 102 mmol/L (98-108); Cholesterol 169 mg/dL (0-200); Estimated Glomerular Filt Rate 56; Glucose 107 mg/dL (70-99); HDL Direct 45 mg/dL (40-60); LDL Cholesterol Calculated 101 mg/dL (<130); Osmolality Calculated 287 mOsm/kg (285-295); Potassium 4.6 mmol/L (3.5-5.1); Sodium 138 mmol/L (136-145); Total Protein 7.5 g/dL (6.4-8.2); Triglycerides 116 mg/dL (0-150)
== END 2022-12-11 09:48 | disposition home or self-care (01) ==
LOC: CHSLAB 09:49
PROVIDERS: PCP Internal Medicine; Visit Provider Internal Medicine
DX: E78.2 Mixed hyperlipidemia (principal)
CPT/HCPCS: 36415; 80053; 80061

== ENCOUNTER 2023-03-15 08:01 | Outpatient (CLI) | payer MEDICARE, SELFPAY ==
[2023-03-15 08:34] LABS: Anion Gap 7 mmol/L (8-16); Blood Urea Nitrogen 42 mg/dL (7-18); Calcium 9.9 mg/dL (8.5-10.1); Carbon Dioxide 28 mmol/L (21-32); Chloride 102 mmol/L (98-108); Estimated Glomerular Filt Rate 44; Glucose 109 mg/dL (70-99); Osmolality Calculated 295 mOsm/kg (285-295); Potassium 4.6 mmol/L (3.5-5.1); Sodium 137 mmol/L (136-145)
== END 2023-03-15 08:02 | disposition home or self-care (01) ==
LOC: CHSLAB 08:03
PROVIDERS: PCP Internal Medicine; Visit Provider Internal Medicine
DX: E87.1 Hypo-osmolality and hyponatremia (principal)
CPT/HCPCS: 36415; 80048

== ENCOUNTER 2023-05-24 13:28 | Outpatient (CLI) | payer MEDICARE, SELFPAY ==
--- NOTE | ~2023-05-24 | MM_ITS ---
EXAMINATION: MM screening [facility] BI w shin HISTORY: Screening TECHNIQUE: Craniocaudal and mediolateral oblique 3-D tomosynthesis images were obtained and synthetic 2-D images were generated. CAD analysis was submitted and interpreted. COMPARISON: Comparison to multiple prior studies sequentially, with oldest reviewed study dated 03/04. BREAST PARENCHYMAL COMPOSITION: There are scattered areas of fibroglandular density. FINDINGS: There is no evidence of suspicious mass, calcification, or architectural distortion to sugg est malignancy in either breast. There has been no suspicious interval change. IMPRESSION: 1. No mammographic evidence of malignancy. 2. Recommend routine screening mammography in one year. BI-RADS Category 1: Negative Reviewed, dictated and finalized at location A. O COMMUNICATIONS MECHANICIAN
[2023-05-24 13:34] VITALS: BMI 30.7
[2023-05-24] MEDS: ZOLEDRONIC ACID 5 MG/100 ML 100 ML 400 MG IVPB (14:05)
[2023-05-24 14:10] VITALS: BP 125/70; PULSE 80; RESP 14; TEMP 36.3; O2SAT 98
[2023-05-24 14:27] LABS: Anion Gap 7 mmol/L (8-16); Blood Urea Nitrogen 32 mg/dL (7-18); Calcium 10.3 mg/dL (8.5-10.1); Carbon Dioxide 30 mmol/L (21-32); Chloride 98 mmol/L (98-108); Estimated Glomerular Filt Rate 49; Glucose 105 mg/dL (70-99); Osmolality Calculated 286 mOsm/kg (285-295); Potassium 4.1 mmol/L (3.5-5.1); Sodium 135 mmol/L (136-145)
--- NOTE | 2023-05-24 14:29 | PC.NURSE ---
Patient here for yearly Reclast infusion. Education given. No concerns voiced. IV Reclast administered. SEE MAR. Tolerated well. Safe exit of hospital.
== END 2023-05-24 13:29 | disposition home or self-care (01) ==
PROVIDERS: PCP Internal Medicine; Visit Provider Internal Medicine
DX: M81.0 Age-related osteoporosis without current pathological fracture (principal); I10 Essential (primary) hypertension; Z12.31 Encounter for screening mammogram for malignant neoplasm of breast
CPT/HCPCS: 36415; 77063; 77067; 80048; 96374; J3489

== ENCOUNTER 2023-06-13 07:51 | Outpatient (CLI) | payer MEDICARE, SELFPAY ==
[2023-06-13 08:04] LABS: Basophils Absolute Auto 0.05 K/mm3 (0.00-0.10); Basophils Percent Auto 0.6 % (0.0-1.0); Eosinophils Absolute Auto 0.15 K/mm3 (0.02-0.50); Eosinophils Percent Auto 1.9 % (1.0-6.0); Hematocrit 40.4 % (35.0-42.0); Immature Granulocyte Absolute 0.02 K/mm3 (0.00-0.00); Immature Granulocyte Percent A 0.2 % (0.0-0.0); Lymphocytes Absolute Auto 2.61 K/mm3 (1.10-4.50); Lymphocytes Percent Auto 32.3 % (18.0-42.0); Mean Corpuscular HGB Conc 32.2 g/dL (32.0-36.0); Mean Corpuscular Hemoglobin 29.3 pg (27.0-31.0); Mean Platelet Volume 9.5 fl (9.2-11.8); Monocytes Absolute Auto 0.61 K/mm3 (0.10-0.90); Monocytes Percent Auto 7.6 % (2.0-11.0); Neutrophils Absolute Auto 4.6 K/mm3 (1.7-7.2); Neutrophils Percent Auto 57.4 % (50.0-70.0); Platelet Count Result 311 K/mm3 (150-420); Red Blood Count 4.44 M/mm3 (4.20-5.40); Red Cell Distribution Width 13.6 % (11.6-14.4); White Blood Count 8.1 K/mm3 (4.8-10.8)
[2023-06-13 08:05] LABS: Appearance Urine Clear (Clear); Bilirubin Urine Negative (Negative); Blood Urine Trace-Intact (Negative); Color Urine Light Yellow (Yellow); Glucose Urine UA Negative (Negative); Ketones Urine Negative (Negative); Leukocyte Esterase Ur Trace LEU/UL (Negative); Nitrate Urine Negative (Negative); Protein Urine 1+ (Negative); Specific Grav Ur >= 1.030 (1.010-1.020); Urobilinogen Urine 0.2 mg/dL (0.2-1.0)
[2023-06-13 08:25] LABS: Add Urine Microscopic? YES; Bacteria Urine Trace /hpf; RBC Urine 0-2 /hpf (0-2); Squamous Epithelial Cell Urine Few /hpf (Few); WBC Urine 0-3 /hpf (0-3)
[2023-06-13 08:48] LABS: Alanine Aminotransferase 24 U/L (14-59); Albumin Level 3.7 g/dL (3.4-5.0); Alkaline Phosphatase 91 U/L (46-116); Anion Gap 12 mmol/L (8-16); Aspartate Amino Transferase 16 U/L (15-37); Bilirubin,Total 0.4 mg/dL (0.00-1.00); Blood Urea Nitrogen 32 mg/dL (7-18); Calcium 8.9 mg/dL (8.5-10.1); Carbon Dioxide 27 mmol/L (21-32); Chloride 101 mmol/L (98-108); Cholesterol 173 mg/dL (0-200); Creatine Kinase 62 U/L (26-192); Estimated Glomerular Filt Rate 41; Glucose 103 mg/dL (70-99); HDL Direct 53 mg/dL (40-60); LDL Cholesterol Calculated 97 mg/dL (<130); Osmolality Calculated 296 mOsm/kg (285-295); Potassium 4.3 mmol/L (3.5-5.1); Sodium 140 mmol/L (136-145); Total Protein 7.4 g/dL (6.4-8.2); Triglycerides 115 mg/dL (0-150)
[2023-06-16 14:05] LABS: Vitamin D 25 Hydroxy 80 ng/mL (30-100)
== END 2023-06-13 07:52 | disposition home or self-care (01) ==
LOC: CHSLAB 07:53
PROVIDERS: PCP Internal Medicine; Visit Provider Internal Medicine
DX: I10 Essential (primary) hypertension (principal); N39.0 Urinary tract infection, site not specified; E78.2 Mixed hyperlipidemia; E55.9 Vitamin D deficiency, unspecified
CPT/HCPCS: 36415; 80053; 80061; 81001; 82306; 82550; 85025

== ENCOUNTER 2023-12-26 08:36 | Outpatient (CLI) | payer MEDICARE, SELFPAY ==
[2023-12-26 08:55] LABS: Appearance Urine Clear (Clear); Bilirubin Urine Negative (Negative); Blood Urine Negative (Negative); Color Urine Yellow (Yellow); Glucose Urine UA Negative (Negative); Hematocrit 41.2 % (35.0-42.0); Hemoglobin 13.3 g/dL (11.7-13.8); Ketones Urine Negative (Negative); Leukocyte Esterase Ur Negative (Negative); Mean Corpuscular HGB Conc 32.3 g/dL (32-36); Mean Corpuscular Hemoglobin 28.9 pg (27.0-31.0); Mean Corpuscular Volume 89.6 fL (78.0-102.0); Mean Platelet Volume 9.1 fl (9.2-11.8); Nitrate Urine Negative (Negative); Platelet Count Result 315 K/mm3 (150-420); Protein Urine Trace (Negative); Red Cell Distribution Width 13.6 % (11.6-14.4); Specific Grav Ur 1.025 (1.010-1.020); Urobilinogen Urine 0.2 mg/dL (0.2-1.0); White Blood Count 7.3 K/mm3 (4.8-10.8)
[2023-12-26 09:05] LABS: Add Urine Microscopic? YES; Bacteria Urine Trace /hpf; RBC Urine None seen /hpf (0-2); Squamous Epithelial Cell Urine Few /hpf (Few); WBC Urine None seen /hpf (0-3)
[2023-12-26 09:35] LABS: Alanine Aminotransferase 22 U/L (14-59); Albumin Level 3.9 g/dL (3.4-5.0); Alkaline Phosphatase 111 U/L (46-116); Anion Gap 9 mmol/L (4-12); Aspartate Amino Transferase 19 U/L (15-37); Bilirubin,Total 0.3 mg/dL (0.00-1.00); Blood Urea Nitrogen 24 mg/dL (7-18); Calcium 8.9 mg/dL (8.5-10.1); Carbon Dioxide 27 mmol/L (21-32); Chloride 102 mmol/L (98-108); Cholesterol 189 mg/dL (0-200); Creatine Kinase 50 U/L (26-192); Estimated Glomerular Filt Rate 55; Free T4 Free Thyroxine 0.94 ng/dL (0.76-1.46); Glucose 176 mg/dL (70-99); HDL Direct 52 mg/dL (40-60); LDL Cholesterol Calculated 120 mg/dL (<130); Osmolality Calculated 294 mOsm/kg (285-295); Potassium 4.4 mmol/L (3.5-5.1); Sodium 138 mmol/L (136-145); Thyroid Stimulating Hormone 1.33 uIU/mL (0.36-3.74); Total Protein 7.3 g/dL (6.4-8.2); Triglycerides 84 mg/dL (0-150)
== END 2023-12-26 08:37 | disposition home or self-care (01) ==
PROVIDERS: PCP Internal Medicine; Visit Provider Internal Medicine
DX: K21.9 Gastro-esophageal reflux disease without esophagitis (principal); I12.9 Hypertensive chronic kidney disease with stage 1 through stage 4 chronic kidney disease, or unspecified chronic kidney disease; E78.2 Mixed hyperlipidemia; N18.2 Chronic kidney disease, stage 2 (mild); E03.4 Atrophy of thyroid (acquired)
CPT/HCPCS: 36415; 80053; 80061; 81001; 82550; 84439; 84443; 85027

== ENCOUNTER 2024-02-19 08:20 | Outpatient (CLI) | payer MEDICARE, SELFPAY ==
--- NOTE | ~2024-02-19 | DEXA_ITS ---
Bone Density Report Name: CORTES CARTAGENA Age: 78 Sex: Female Ethnicity: White Date of : 1945 Indication: osteopenia; parental hip fracture; height loss; cancer; hysterectomy; Referring Provider: Dane Mcqueen Study: Bone densitometry was performed. Exam Date: February 19, 2024 Accession number: [id number] Bone Density: Region BMD T-score Z-score Classification AP Spine(L1, L2, L3) 0.935 -0.8 1.7 Normal Femoral Neck (Left) 0.520 -3.0 -0.8 Osteoporosis Total Hip (Left) 0.752 -1.6 0.4 Osteopenia Femoral Neck (Right) 0.539 -2.8 -0.6 Osteoporosis Total Hip (Right) 0.786 -1.3 0.6 Osteopenia Femoral Neck Mean 0.529 -2.9 -0.7 Osteoporosis Total Hip Mean 0.769 -1.4 0.5 Osteopenia World Health Organization criteria for BMD impression classify patients as: Normal (T-score at or above -1.0), Osteopenia (T-score between -1.0 and -2.5), or Osteoporosis (T-score at or below -2.5). 10-year Fracture Risk: FRAX not reported because: Some T-score for Spine Total or Hip Total or Femoral Neck at or below -2.5 Previous Exams: Region Exam Age BMD T-score BMD Change BMD Change Date g/cm2 vs Baseline vs Previous AP Spine (L1-L3) 02/19/2024 78 0.935 -0.8 -0.035 (-3.6%) 0.008 (0.8%)# 10/25/2022 77 0.927 -0.8 -0.043 (-4.4%) -0.034 (-3.5%) 09/23/2020 75 0.961 -0.5 -0.008 (-0.9%) -0.008 (-0.9%) 09/09/2018 73 0.969 -0.4 Total Hip(Left) 02/19/2024 78 0.752 -1.6 -0.017 (-2.2%) 0.080 (11.9%)# 10/25/2022 77 0.672 -2.2 -0.097 (-12.6% -0.038 (-5.3%) 09/23/2020 75 0.710 -1.9 -0.059 (-7.7%) -0.059 (-7.7%) 09/09/2018 73 0.769 -1.4 Total Hip(Right) 02/19/2024 78 0.786 -1.3 0.006 (0.8%)# 0.054 (7.4%)# 10/25/2022 77 0.732 -1.7 -0.048 (-6.2%) -0.019 (-2.5%) 09/23/2020 75 0.750 -1.6 -0.030 (-3.8%) -0.030 (-3.8%) 09/09/2018 73 0.780 -1.3 *Denotes significance at 95% confidence level, LSC for AP Spine = 0.022 g/cm2, LSC for Total Hip = 0.027 g/cm2 # Denotes dissimilar scan types or analysis methods Clinical Information Provided by Patient: Parent has had a hip fracture Has used the following medications: Reclast (i.e. zoledronate), Vitamin D, Calcium Has the following medical conditions: Cancer, Hysterectomy Patient maximum height was 60 Menopause Age: 41 No regular weight bearing exercise Drinks caffeinated beverages Onset of menses at age 13 Number of children 5 Omer
== END 2024-02-19 08:21 | disposition home or self-care (01) ==
LOC: CHSIMG 08:22
PROVIDERS: PCP Internal Medicine; Visit Provider Internal Medicine
DX: Z78.0 Asymptomatic menopausal state (principal); M81.0 Age-related osteoporosis without current pathological fracture; M85.89 Other specified disorders of bone density and structure, multiple sites
CPT/HCPCS: 77080

== ENCOUNTER 2024-04-09 07:36 | Outpatient (CLI) | payer MEDICARE, SELFPAY ==
[2024-04-09 07:56] LABS: Hemoglobin A1C 5.4 % (<5.7)
[2024-04-09 08:10] LABS: Anion Gap 8 mmol/L (4-12); Blood Urea Nitrogen 23 mg/dL (7-18); Calcium 9.1 mg/dL (8.5-10.1); Carbon Dioxide 29 mmol/L (21-32); Chloride 105 mmol/L (98-108); Estimated Glomerular Filt Rate > 60; Glucose 96 mg/dL (70-99); Osmolality Calculated 297 mOsm/kg (285-295); Sodium 142 mmol/L (136-145)
== END 2024-04-09 07:37 | disposition home or self-care (01) ==
LOC: CHSLAB 07:37
PROVIDERS: PCP Internal Medicine; Visit Provider Internal Medicine
DX: R73.01 Impaired fasting glucose (principal)
CPT/HCPCS: 36415; 80048; 83036

== ENCOUNTER 2024-06-15 09:23 | Outpatient (CLI) | payer MEDICARE, SELFPAY ==
[2024-06-15 09:59] VITALS: BP 118/46; PULSE 70; RESP 18; TEMP 35.7; O2SAT 95
[2024-06-15] MEDS: ZOLEDRONIC ACID 5 MG/100 ML 100 ML 400 MG IVPB (10:14)
[2024-06-15 10:23] VITALS: BMI 35.7
== END 2024-06-15 09:24 | disposition home or self-care (01) ==
LOC: CHSTREATRM 09:25
PROVIDERS: PCP Internal Medicine; Visit Provider Internal Medicine
DX: M81.0 Age-related osteoporosis without current pathological fracture (principal)
CPT/HCPCS: 96365; 96374; J3489

== ENCOUNTER 2025-01-25 14:48 | Outpatient (CLI) | payer MEDICARE, SELFPAY ==
--- NOTE | ~2025-01-25 | XR_ITS ---
EXAMINATION: XR chest 2V 01/25/2025 15:09 INDICATION: Cough and wheezing PROCEDURE: 2 view chest COMPARISON: Comparison to multiple prior studies sequentially, with oldest reviewed study dated 03/28/2022. FINDINGS: The lungs are clear. The cardiomediastinal silhouette is within normal limits. There are no pleural effusions. There is no pneumothorax suspected. There is moderate-severe thoracolumbar spondylosis. Accentuated kyphosis. There are cholecystectomy clips. IMPRESSION: 1: NO ACUTE CARDIOPULMONARY DISEASE. Reviewed, dictated and finalized at location O.
--- OUTSIDE RECORDS SUMMARY | 2025-01-25 15:01 | XMS_ITS | Clinical Summary ---
Author Organization [facility] Address [address] [place] [address] Care Team Providers Care Car Inspection And Repair Manager Name Role Phone Rodger Coronel MD Unavailable [phone] Dane Mcqueen MD Primary Care Provider + [phone] Allergies Active Allergy Reactions Criticality Noted Date Comments Aspirin Chest tightness Medium 12/03/2017 Hydrocodone-Acetaminophen Mental status changes Low 12/03/2017 Sulfamethoxazole-Trimethoprim Hives Medium 2020 Medications ergocalciferol (VITAMIN D) 50,000 unit capsule TAKE ONE CAPSULE BY MOUTH ONCE WEEKLY DIRECTED 0 8 Active atorvastatin (LIPITOR) 40 mg tablet Take 40 mg by mouth daily. Active lisinopril (PRINIVIL,ZESTR IL) 20 mg tablet Take 20 mg by mouth daily. Active omeprazole (PriLOSEC) 40 mg capsule Take 40 mg by mouth daily. Active meloxicam (MOBIC) 15 mg tablet Take 15 mg by mouth daily 1 Active albuterol HFA (PROVENTIL HFA,VENTOLIN HFA,PROAIR HFA) 90 mcg/actuation inhaler albuterol sulfate HFA 90 mcg/actuation aerosol inhaler Active Active Problems No known active problems Surgical History Surgery Date Site/Laterality Comments HYSTERECTOMY COLON SURGERY colon cancer x 2 CHOLECYSTECTOMY APPENDECTOMY Medical History Medical History Date Comments GERD (gastroesophageal reflux disease) Hypertension Hyperlipidemia History of transfusion Cancer (HCC) colon COPD (chronic obstructive pulmonary disease) Family History Medical History Relation Name Comments Diabetes Brother Accident Father Diabetes Mother Hypertension Mother Relation Name Status Comments Brother Alive Father (Age 75) Mother (Age 86) Social History Tobacco Use Types Packs/Day Years Used Date Smoking Tobacco: Former Cigarettes 0.5 10 Smokeless Tobacco: Never Comments:quit 4 years ago Alcohol Use Standard Drinks/Week Comments Yes 1 (1 standard drink = 0.6 oz pur e alcohol) Personal Safety Answer Date Recorded Getting School Help Needed Not on file 08/16 Comments No Sex and Gender Information Value Date Recorded Sex Assigned at Not on file 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 Gender Identity Not on file Sexual Orientation Not on file Obstetrics History Last Filed Vital Signs Vital Sign Reading Time Taken Comments Blood Pressure 112/78 10/19/2020 9:52 AM CDT Pulse 80 10/19/2020 9:52 AM CDT Temperature 36.8 C (98.2 F) 12/13/2017 1:02 PM CDT Respiratory Rate 18 12/13/2017 1:02 PM CDT Oxygen Saturation 98% 10/19/2020 9:52 AM CDT Inhaled Oxygen Concentration - - Weight 65.8 kg (145 lb) 10/19/2020 9:52 AM CDT Height 142.2 cm (4' 8) 10/19/2020 9:52 AM CDT Body Mass Index 32.51 10/19/2020 9:52 AM CDT Plan of Treatment Not on file Insurance MEDICARE ADVANTAGE [facility] MED[facility] Address: [facility] [address] [place] [address] Advance Directives For more information, please contact: [phone] * Full Code (Latest Code Status on File) Date Activated Date Inactivated Comments 12/10/2017 4:43 PM 12/13/2017 5:45 PM * Full Code Date Activated Date Inactivated Comments 12/10/2017 11:22 AM 12/10/2017 3:49 PM * Full Code Date Activated Date Inactivated Comments 12/10/2017 7:40 AM 12/10/2017 11:22 AM Care Teams Car Inspection And Repair Manager Relationship Specialty Start Date End Date Dane Mcqueen MD [address] [place] [address] PCP - General Internal Medicine 10/19/20 [place] [address] [place] [address] Consulting Physician Gastroenterology 12/13/17
[2025-01-25 15:05] LABS: Hematocrit 39.2 % (35.0-42.0); Hemoglobin 12.8 g/dL (11.7-13.8); Mean Corpuscular HGB Conc 32.7 g/dL (32-36); Mean Corpuscular Hemoglobin 28.8 pg (27.0-31.0); Mean Corpuscular Volume 88.1 fL (78.0-102.0); Platelet Count Result 334 K/mm3 (150-420); Red Blood Count 4.45 M/mm3 (4.20-5.40); White Blood Count 9.1 K/mm3 (4.8-10.8)
[2025-01-25 15:15] LABS: Alanine Aminotransferase 15 U/L (6-35); Albumin Level 4.6 g/dL (3.5-5.1); Alkaline Phosphatase 93 U/L (38-126); Anion Gap 8 mmol/L (4-12); Aspartate Amino Transferase 26 U/L (14-36); Bilirubin,Total 0.7 mg/dL (0.2-1.3); Blood Urea Nitrogen 17 mg/dL (7-17); Calcium 10.1 mg/dL (8.4-10.2); Carbon Dioxide 29 mmol/L (22-30); Chloride 101 mmol/L (98-107); Estimated Glomerular Filt Rate 58; Glucose 112 mg/dL (65-110); Osmolality Calculated 288 mOsm/kg (285-295); Potassium 4.1 mmol/L (3.4-5.0); Sodium 138 mmol/L (137-145); Total Protein 8.0 g/dL (6.3-8.2)
[2025-01-25 15:41] LABS: Influenza A QL RT-PCR Negative (Negative); Influenza B QL RT-PCR Negative (Negative); RSV RNA, RT-PCR Negative (Negative); SARS-CoV-2 RNA PCR Negative (Negative)
[2025-01-25 16:10] LABS: Strep Group A RT-PCR NOT DETECTED (Negative)
== END 2025-01-25 14:49 | disposition home or self-care (01) ==
LOC: CHSLAB 14:49
PROVIDERS: PCP Internal Medicine; Visit Provider Internal Medicine
DX: R05.9 Cough, unspecified (principal); R06.2 Wheezing
CPT/HCPCS: 36415; 71046; 80053; 85027; 87637; 87651

== ENCOUNTER 2025-02-03 08:13 | Outpatient (CLI) | payer MEDICARE, SELFPAY ==
--- OUTSIDE RECORDS SUMMARY | 2025-02-03 08:27 | XMS_ITS | Clinical Summary ---
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 Gender Identity Not on file Sexual Orientation [...] Treatment Not on file Insurance MEDICARE AD[facility]ANTAGE [facility] MEDIC[facility] Address: [facility] [address] [place] [address] Advance Directives For more information, please contact: [phone] * Full Code (Latest Code Status on File) Date Activated Date Inactivated Comments 12/10/2017 4:43 PM 12/13/2017 5:45 PM * Full Code Date Activated Date Inactivated Comments 12/10/2017 11:22 AM 12/10/2017 3:49 PM * Full Code Date Activated Date Inactivated Comments 12/10/2017 7:40 AM 12/10/2017 11:22 AM Care Teams Galvanizer Zinc Relationship Specialty Start Date End Date Dane Mcqueen MD [address] [place] [address] PCP - General Internal Medicine 10/19/20 [place] [address] [place] [address] Consulting Physician Gastroenterology 12/13/17
[2025-02-03 08:30] LABS: Hematocrit 39.9 % (35.0-42.0); Hemoglobin 12.9 g/dL (11.7-13.8); Mean Corpuscular HGB Conc 32.3 g/dL (32-36); Mean Corpuscular Hemoglobin 28.8 pg (27.0-31.0); Mean Corpuscular Volume 89.1 fL (78.0-102.0); Platelet Count Result 385 K/mm3 (150-420); Red Blood Count 4.48 M/mm3 (4.20-5.40); White Blood Count 14.3 K/mm3 (4.8-10.8)
[2025-02-03 08:31] LABS: Add Urine Microscopic? NO; Appearance Urine Clear (Clear); Glucose Urine UA Negative (Negative); Leukocyte Esterase Ur Negative (Negative); Nitrate Urine Negative (Negative); Specific Grav Ur 1.025 (1.010-1.020)
[2025-02-03 08:58] LABS: Hemoglobin A1C 5.8 % (<5.7)
[2025-02-03 09:08] LABS: Alanine Aminotransferase 16 U/L (6-35); Albumin Level 4.4 g/dL (3.5-5.1); Alkaline Phosphatase 95 U/L (38-126); Anion Gap 10 mmol/L (4-12); Aspartate Amino Transferase 22 U/L (14-36); Bilirubin,Total 0.7 mg/dL (0.2-1.3); Blood Urea Nitrogen 44 mg/dL (7-17); Calcium 10.1 mg/dL (8.4-10.2); Carbon Dioxide 29 mmol/L (22-30); Chloride 100 mmol/L (98-107); Cholesterol 162 mg/dL (0-200); Creatine Kinase 41 U/L (30-135); Estimated Glomerular Filt Rate 38; Glucose 105 mg/dL (65-110); HDL Direct 50 mg/dL; Osmolality Calculated 299 mOsm/kg (285-295); Potassium 4.2 mmol/L (3.4-5.0); Sodium 139 mmol/L (137-145); Total Protein 7.1 g/dL (6.3-8.2); Triglycerides 136 mg/dL (<150)
== END 2025-02-03 08:14 | disposition home or self-care (01) ==
LOC: CHSLAB 08:15
PROVIDERS: PCP Internal Medicine; Visit Provider Internal Medicine
DX: I12.9 Hypertensive chronic kidney disease with stage 1 through stage 4 chronic kidney disease, or unspecified chronic kidney disease (principal); N18.2 Chronic kidney disease, stage 2 (mild); R73.01 Impaired fasting glucose; K86.81 Exocrine pancreatic insufficiency; E78.2 Mixed hyperlipidemia; M81.0 Age-related osteoporosis without current pathological fracture
CPT/HCPCS: 36415; 80053; 80061; 81003; 82306; 82550; 83036; 85027

== ENCOUNTER 2025-02-08 08:48 | Outpatient (CLI) | payer MEDICARE, SELFPAY ==
--- OUTSIDE RECORDS SUMMARY | 2025-02-08 08:59 | XMS_ITS | Clinical Summary ---
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 Gender Identity Not on file Sexual Orientation [...] Treatment Not on file Insurance [facility] Address: [facility] [address] [place] [address] Advance Directives For more information, please contact: [phone] * Full Code (Latest Code Status on File) Date Activated Date Inactivated Comments 12/10/2017 4:43 PM 12/13/2017 5:45 PM * Full Code Date Activated Date Inactivated Comments 12/10/2017 11:22 AM 12/10/2017 3:49 PM * Full Code Date Activated Date Inactivated Comments 12/10/2017 7:40 AM 12/10/2017 11:22 AM Care Teams Catering Barista Relationship Specialty Start Date End Date Dane Mcqueen MD [address] [place] [address] PCP - General Internal Medicine 10/19/20 [place] [address] [place] [address] Consulting Physician Gastroenterology 12/13/17
[2025-02-08 09:39] LABS: Anion Gap 11 mmol/L (4-12); Blood Urea Nitrogen 24 mg/dL (7-17); Calcium 10.2 mg/dL (8.4-10.2); Carbon Dioxide 25 mmol/L (22-30); Chloride 104 mmol/L (98-107); Estimated Glomerular Filt Rate 59; Glucose 101 mg/dL (65-110); Osmolality Calculated 294 mOsm/kg (285-295); Potassium 4.5 mmol/L (3.4-5.0); Sodium 140 mmol/L (137-145)
== END 2025-02-08 08:49 | disposition home or self-care (01) ==
LOC: CHSLAB 08:50
PROVIDERS: PCP Internal Medicine; Visit Provider Internal Medicine
DX: I10 Essential (primary) hypertension (principal)
CPT/HCPCS: 36415; 80048